=== PATIENT | female | born 1940 | race Caucasian/White ===

== ENCOUNTER 2017-10-08 17:38 | Emergency (ER) | payer MEDICARE, MEDICAID ==
[2017-10-08 18:15] VITALS: BP 152/76
[2017-10-08] MEDS ORDERED: Acetaminophen/HYDROcodone 325-5 MG Tab PO ONE (18:15)
[2017-10-08] MEDS ORDERED: Ketorolac 30 MG/ML SDV IM ONE (18:15)
--- NOTE | 2017-10-08 18:21 | EDM.PDOC ---
ED HPI GENERAL MEDICAL PROBLEM - General Chief Complaint: General Stated Complaint: LOW BACK PAIN Time Seen by Provider: 10/08/17 18:05 Source of Information: Reports: Patient, Family, Old Records, RN History Limitations: Reports: No Limitations - History of Present Illness INITIAL COMMENTS - FREE TEXT/NARRATIVE: 77 yo female [facility] resident with dementia is sent for low back pain and suspicion of a UTI. She is scheduled tomorrow to have an SI joint injection. May have had a fever yesterday. Is currently on diclofenac and acetaminophen for pain relief with insufficient benefit. Is here with her . Is unable today to get out of bed on her own due to the pain. X-ray of 09/26/17 shows mild degen changes of the SI joints. Onset: Gradual, Unknown/Unsure Duration: Week(s): Location: Reports: Back (low) Quality: Reports: Ache Severity: Moderate Improves with: Reports: Rest Worsens with: Reports: Movement Context: Reports: Other (uncertain) Associated Symptoms: Reports: Fever/Chills (? 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, NSAIDS Lower Back Pain Score (Numeric/FACES): 8 - Related Data Allergies Allergy/AdvReac Type Severity Reaction Status Date / Time No Known Allergies Allergy Verified 09/04/16 01:09 Home Meds: Home Meds Donepezil [Aricept] 10 mg PO BEDTIME 06/15/14 [History] Ipratropium [Atrovent HFA] 1 puff INH Q6H PRN 06/15/14 [History] Levothyroxine [Synthroid] 50 mcg PO ACBRK 06/15/14 [History] Memantine HCl [Namenda] 10 mg PO BID 06/15/14 [History] Aspirin [Halfprin] 81 mg PO DAILY 07/23/14 [History] Clopidogrel [Plavix] 75 mg PO DAILY 02/11/15 [History] Nitroglycerin 0.4 mg SL ASDIRECTED PRN 02/11/15 [History] atorvaSTATin [Lipitor] 40 mg PO BEDTIME 02/11/15 [History] Citalopram [Citalopram HBr] 20 mg PO DAILY 08/19/15 [History] Multivits w-Min/Ferrous Gluc [Cerovite Liquid] 9 mg PO DAILY 06/10/16 [History] ALPRAZolam [Xanax] 0.25 mg PO TID PRN 10/08/17 [History] ARIPiprazole [Abilify] 2 mg PO DAILY 10/08/17 [History] Acetaminophen [Tylenol] 650 mg PO QID PRN 10/08/17 [History] Diclofenac Sodium [Voltaren] 75 mg PO BIDMEALS 10/08/17 [History] Propranolol HCl 10 mg PO DAILY PRN 10/08/17 [History] Sulfamethoxazole/Trimethoprim [Bactrim Ds Tablet] 1 each PO Q12H #10 tablet [Rx] Past Medical History HEENT History: Reports: Impaired Vision Cardiovascular History: Reports: CAD, High Cholesterol, DC, Stents, Syncope Respiratory History: Reports: SOB Gastrointestinal History: Reports: Bowel Obstruction, Diverticulosis 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: , Other (See Below) Other OB/BYN History: breast lumpectomy Musculoskeletal History: Reports: Fracture, Fibromyalgia Neurological History: Reports: Alzheimers Disease, Seizure Other Neuro History: dementia Psychiatric History: Reports: Anxiety Other Psychiatric History: Dementia Endocrine/Metabolic History: Reports: Hypothyroidism Other Endocrine/Metabolic History: thyroid disease - Infectious Disease History Infectious Disease History: Reports: Chicken Pox, Measles, Mumps - Past Surgical History Cardiovascular Surgical History: Reports: Coronary Artery Stent, Vascular Surgery GI Surgical History: Reports: Colonoscopy, EGD, Hernia Repair/Other Musculoskeletal Surgical History: Reports: Carpal Tunnel Oncologic Surgical History: Reports: Lumpectomy Social & Family History - Tobacco Use Smoking Status *Q: Never Smoker Years of Tobacco use: 40 Packs/Tins Daily: 1 Used Tobacco, but Quit: Yes Month Tobacco Last Used: 10 years ago Second Hand Smoke Exposure: No - Caffeine Use Caffeine Use: Reports: Coffee - Alcohol Use Days Per Week of Alcohol Use: 0 - Recreational Drug Use Recreational Drug Use: No ED ROS GENERAL - Review of Systems Review Of Systems: See Below Constitutional: Reports: Fever (yesterday) HEENT: Reports: No Symptoms Respiratory: Reports: No Symptoms Cardiovascular: Reports: No Symptoms GI/Abdominal: Reports: No Symptoms : Reports: Other (malodorous urine) Musculoskeletal: Reports: Back Pain (low) Skin: Reports: No Symptoms Neurological: Reports: No Symptoms Psychiatric: Reports: No Symptoms ED EXAM, GENERAL - Physical Exam Exam: See Below Exam Limited By: No Limitations General Appearance: Alert, WD/WN, No Apparent Distress Eye Exam: Bilateral Eye: Normal Inspection Ears: Normal External Exam, Normal Canal, Hearing Grossly Normal Ear Exam: Bilateral Ear: Auricle Normal, Canal Normal Nose: Normal Inspection, Normal Mucosa, No Blood Throat/Mouth: Normal Inspection, Normal Lips, Normal Oropharynx, Normal Voice, No Airway Compromise Head: Atraumatic, Normocephalic Neck: Normal Inspection, Supple, Non-Tender Respiratory/Chest: No Respiratory Distress, Lungs Clear, Normal Breath Sounds, No Accessory Muscle Use Cardiovascular: Regular Rate, Rhythm, No Edema GI/Abdominal: Normal Bowel Sounds, Soft, Non-Tender, No Distention Back Exam: Normal Inspection, Other (sacral and L SI joint tenderness with palpation. ). No: CVA Tenderness (R), CVA Tenderness (L), Vertebral Tenderness Extremities: Normal Inspection, Non-Tender, No Pedal Edema Neurological: Alert, CN II-XII Intact, No Motor/Sensory Deficits, Memory Loss Recent Events (not new) Psychiatric: Normal Affect, Normal Mood Skin Exam: Warm, Dry, Intact, Normal Color, No Rash Lymphatic: No Adenopathy Course - Vital Signs Last Recorded V/S: Last Vital Signs Temp 36.5 C 10/08/17 17:54 Pulse 73 10/08/17 17:54 Resp 18 10/08/17 17:54 BP 152/76 H 10/08/17 17:54 Pulse Ox 91 L 10/08/17 17:54 - Orders/Labs/Meds Orders: Active Orders 24 hr Category Date Time Status CULTURE URINE [RM] Stat Lab 10/08/17 19:40 Ordered Labs: Laboratory Tests 10/08/17 Range/Units 19:24 Urine Color [place] Urine Appearance Cloudy Urine pH 5.0 (4.5-8.0) Ur Specific [place] 1.030 (1.008-1.030) Urine Protein 30 H (NEGATIVE) mg/dL Urine Glucose (UA) Normal (NEGATIVE) mg/dL Urine Ketones 15 H (NEGATIVE) mg/dL Urine Occult Blood Large (NEGATIVE) Urine Nitrite Negative (NEGATIVE) Urine Bilirubin Negative (NEGATIVE) Urine Urobilinogen 1 (NORMAL) mg/dL Ur Leukocyte Esterase Large (NEGATIVE) Urine RBC 5-10 H (0-5) Urine WBC Packed H (0-5) Ur Epithelial Cells Moderate Amorphous Sediment Moderate Urine Bacteria Moderate Urine Mucus Numerous Urine Other See note Meds: Medications Discontinued Medications Generic Name Dose Route Start Last Admin Trade Name Freq PRN Reason Stop Dose Admin Hydrocodone Bitart/Acetaminophen 1 tab 10/08/17 18:15 10/08/17 18:21 [place] [facility] 325-5 Mg PO 10/08/17 18:16 1 tab ONETIME ONE Administration Ketorolac Tromethamine 15 mg 10/08/17 18:15 10/08/17 18:21 Toradol IM 10/08/17 18:16 15 mg ONETIME ONE Administration Trimethoprim/Sulfamethoxazole 1 tab 10/08/17 19:40 Septra Ds PO 10/08/17 19:41 ONETIME ONE Departure - Departure Time of Disposition: 19:45 Disposition: Home, Self-Care 01 Condition: Fair Clinical Impression: Sacro-iliac pain UTI (urinary tract infection) Qualifiers: Urinary tract infection type: acute cystitis Hematuria presence: without hematuria Qualified Code(s): N30.00 - Acute cystitis without hematuria - Discharge Information Prescriptions: Sulfamethoxazole/Trimethoprim [Bactrim Ds Tablet] 1 each PO Q12H #10 tablet Referrals: Grant Flores MD [Primary Care Provider] - Forms: ED Department Discharge Additional Instructions: Take Bactrim DS every 12 hrs until gone. Recheck in the clinic in 2-3 days to review your culture results. Take [place] every 4 hrs for pain relief. Keep your appt for injection tomorrow. Continue your other meds as currently. - My Orders Last 24 Hours: My Active Orders 10/08/17 19:40 CULTURE URINE [RM] Stat - Assessment/Plan Last 24 Hours: My Active Orders 10/08/17 19:40 CULTURE URINE [RM] Stat
[2017-10-08] MEDS ORDERED: Sulfamethoxazole/Trimethoprim 800-160 MG Tab PO ONE (19:40)
== END 2017-10-08 20:17 | disposition home or self-care (01) ==
LOC: JP.ED 17:38
DX: M53.3 Sacrococcygeal disorders, not elsewhere classified (principal); N30.00 Acute cystitis without hematuria; E78.00 Pure hypercholesterolemia, unspecified; E03.9 Hypothyroidism, unspecified; Z79.899 Other long term (current) drug therapy; Z87.891 Personal history of nicotine dependence
CPT/HCPCS: 81001; 87086; 96372; 99284; A9270; J1885; 99283

== ENCOUNTER 2017-10-29 05:54 | Emergency (ER) | payer MEDICARE, MEDICAID ==
[2017-10-29] MEDS ORDERED: Sodium Chloride 0.9% 10 ML Syringe FLUSH PRN ×2 (06:49→07:18)
[2017-10-29] MEDS ORDERED: Ondansetron 4 MG/2 ML SDV IVPUSH ONE (06:51)
--- NOTE | 2017-10-29 06:57 | EDM.PDOC ---
<Tang Sosa - Last Filed: 10/29/17 07:11> ED HPI GENERAL MEDICAL PROBLEM - General Chief Complaint: Gastrointestinal Problem Stated Complaint: ILLNESS Time Seen by Provider: 10/29/17 06:39 Source of Information: Reports: Patient, Old Records, Significant Other, Other ( clinic records) History Limitations: Reports: Other (dementia) - History of Present Illness INITIAL COMMENTS - FREE TEXT/NARRATIVE: 06.40 Brought by her significant other after he was called because of several episodes of vomiting Complaint Vomiting, decreased intake History of present illness 77-year-old female with dementia, she is in [facility] because of dementia; her significant other spends evenings with her. She's had chronic back pain for months She's had intermittent vomiting for 3 weeks with decreased appetite decreased intake and weight loss. Last 4-5 days she has not been vomiting but then again this morning she had multiple episodes which prompted the staff to call him to bring her in. No abdominal pain Uncertain if any diarrhea, but her friend comments that she is incontinent and runs to the bathroom every 10 minutes when he was there in the evening. 3 weeks ago she had fever 102. Recently changed to ciprofloxacin, she had one dose of that so far. She has had recurrent urinary tract infections, failed to improve on Septra and urine culture from the office done on November 04 revealed Escherichia coli in the urine. No urinary symptoms but history from the patient is unreliable Complaining of thirst Significant other reports that he thinks she looks quite yellow Additional history includes coronary artery disease, myocardial infarction, coronary stents, diverticulitis with excision of small part of intestine because of obstruction, and hernia repair. Left Lower Back Pain Score (Numeric/FACES): 6 - Related Data Allergies Allergy/AdvReac Type Severity Reaction Status Date / Time No Known Allergies Allergy Verified 10/29/17 06:12 Home Meds: Home Meds Donepezil [Aricept] 10 mg PO BEDTIME 06/15/14 [History] Ipratropium [Atrovent HFA] 1 puff INH Q6H PRN 06/15/14 [History] Levothyroxine [Synthroid] 50 mcg PO ACBRK 06/15/14 [History] Memantine HCl [Namenda] 10 mg PO BID 06/15/14 [History] Aspirin [Halfprin] 81 mg PO DAILY 07/23/14 [History] Clopidogrel [Plavix] 75 mg PO DAILY 02/11/15 [History] Nitroglycerin 0.4 mg SL ASDIRECTED PRN 02/11/15 [History] atorvaSTATin [Lipitor] 40 mg PO BEDTIME 02/11/15 [History] Citalopram [Citalopram HBr] 20 mg PO DAILY 08/19/15 [History] Multivits w-Min/Ferrous Gluc [Cerovite Liquid] 9 mg PO DAILY 06/10/16 [History] ALPRAZolam [Xanax] 0.25 mg PO TID PRN 10/08/17 [History] ARIPiprazole [Abilify] 2 mg PO DAILY 10/08/17 [History] Acetaminophen [Tylenol] 650 mg PO QID PRN 10/08/17 [History] Diclofenac Sodium [Voltaren] 75 mg PO BIDMEALS 10/08/17 [History] Propranolol HCl 10 mg PO DAILY PRN 10/08/17 [History] Sulfamethoxazole/Trimethoprim [Bactrim Ds Tablet] 1 each PO Q12H #10 tablet [Rx] Past Medical History HEENT History: Reports: Impaired Vision Cardiovascular History: Reports: CAD, High Cholesterol, SD, Stents, Syncope Respiratory History: Reports: SOB Gastrointestinal History: Reports: Bowel Obstruction, Diverticulosis Genitourinary History: Reports: UTI, Recurrent 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: , 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 (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 Below) Other OB/BYN History: breast lumpectomy Musculoskeletal History: Reports: Fracture, Fibromyalgia Neurological History: Reports: Alzheimers Disease, Seizure Other Neuro History: dementia Psychiatric History: Reports: Anxiety Other Psychiatric History: Dementia Endocrine/Metabolic History: Reports: Hypothyroidism Other Endocrine/Metabolic History: thyroid disease - Infectious Disease History Infectious Disease History: Reports: Chicken Pox, Measles, Mumps - Past Surgical History Cardiovascular Surgical History: Reports: Coronary Artery Stent, Vascular Surgery GI Surgical History: Reports: Colonoscopy, EGD, Hernia Repair/Other Musculoskeletal Surgical History: Reports: Carpal Tunnel Oncologic Surgical History: Reports: Lumpectomy Social & Family History - Tobacco Use Smoking Status *Q: Former Smoker Years of Tobacco use: 40 Packs/Tins Daily: 1 Used Tobacco, but Quit: Yes Month Tobacco Last Used: 8 years Second Hand Smoke Exposure: No - Caffeine Use Caffeine Use: Reports: None - Alcohol Use Days Per Week of Alcohol Use: 0 - Recreational Drug Use Recreational Drug Use: No ED ROS GENERAL - Review of Systems Review Of Systems: Unable To Obtain (Dementia) ED EXAM, GI/ABD - Physical Exam Exam: See Below Exam Limited By: No Limitations General Appearance: Alert, Anxious, Mild Distress, Other (Anxious, disheveled, Vital signs are normal, distracted) Eyes: Bilateral: Normal Appearance Ears: Normal External Exam, Normal Canal Nose: Normal Inspection Throat/Mouth: Normal Oropharynx, Normal Voice, Other (Dry mouth and tongue) Head: Atraumatic Neck: Supple, Non-Tender. No: Lymphadenopathy (R), Lymphadenopathy (L) Respiratory/Chest: No Respiratory Distress, Lungs Clear, Normal Breath Sounds, No Accessory Muscle Use Cardiovascular: Normal Peripheral Pulses, Regular Rate, Rhythm, No Murmur GI/Abdominal Exam: Normal Bowel Sounds, Soft, Non-Tender, Other (Overweight, difficult to assess but no focal tenderness and no masses felt, scars from previous surgery) Neurological: Alert, CN II-XII Intact, Confused, Disoriented Skin Exam: Warm, Dry, No Rash, Pallor Comments: 77-year-old female with significant weight loss, due to a combination of decreased appetite decreased intake vomiting possible diarrhea. Labs ordered IV fluids, transferred to care of Officer pending results and disposition. Ondansetron 4 mg IV Course - Vital Signs Last Recorded V/S: Last Vital Signs Temp 98.6 F 10/29/17 05:59 Pulse 73 10/29/17 07:08 Resp 16 10/29/17 07:08 BP 134/57 L 10/29/17 07:08 Pulse Ox 92 L 10/29/17 07:08 - Orders/Labs/Meds Orders: Active Orders 24 hr Category Date Time Status Peripheral IV Care [RC] . DIRECTED Care 10/29/17 06:51 Active Peripheral IV Care [RC] . DIRECTED Care 10/29/17 07:18 Active INR,PT,PROTHROMBIN TIME [COAG] Urgent Lab 10/29/17 07:58 Ordered PTT,PARTIAL THROMBOPLSTIN TIME [COAG] Urgent Lab 10/29/17 07:58 Ordered RED BLOOD CELLS LP [BBK] Stat Lab 10/29/17 07:58 Ordered TYPE AND SCREEN [BBK] Stat Lab 10/29/17 07:58 Ordered Octreotide [SandoSTATIN] 1,000 mcg Med 10/29/17 08:45 Active Sodium Chloride 0.9% [Normal Saline] 245 ml IV Q20H Octreotide [SandoSTATIN] 50 mcg Med 10/29/17 08:30 Active Sodium Chloride 0.9% [Normal Saline] 50 ml IV ONETIME Pantoprazole 80 MG in Sodium Chloride 0.9% @ 10 MLS/HR( Med 10/29/17 08:15 Ordered 100ml) Sodium Chloride 0.9% [Normal Saline] 100 ml Pantoprazole [ProTONIX IV] 80 mg IV 10 mls/hr Pantoprazole [ProTONIX IV] Med 10/29/17 08:15 Ordered 80 mg IVPUSH .BOLUS Sodium Chloride 0.9% [Normal Saline] 1,000 ml Med 10/29/17 07:00 Active IV ASDIRECTED Sodium Chloride 0.9% [Saline Flush] Med 10/29/17 06:49 Active 10 ml FLUSH ASDIRECTED PRN Sodium Chloride 0.9% [Saline Flush] Med 10/29/17 07:18 Active 10 ml FLUSH ASDIRECTED PRN Peripheral IV Insertion Adult [OM.PC] Routine Oth 10/29/17 06:48 Ordered Peripheral IV Insertion Adult [OM.PC] Routine Oth 10/29/17 07:18 Ordered Medication Orders Sodium Chloride (Normal Saline) 1,000 mls @ 250 mls/hr IV ASDIRECTED ALBERTO Last Admin: 10/29/17 07:05 Dose: 250 mls/hr Octreotide Acetate 50 mcg/ (Sodium Chloride) 50.25 mls @ 201 mls/hr IV ONETIME ONE Stop: 10/29/17 08:44 Octreotide Acetate 1,000 mcg/ (Sodium Chloride) 250 mls @ 12.5 mls/hr IV Q20H ALBERTO Pantoprazole Sodium 80 mg/ (Sodium Chloride) 100 mls @ 10 mls/hr IV .Q10H ALBERTO Pantoprazole Sodium (Protonix Iv) 80 mg IVPUSH .BOLUS ALBERTO Sodium Chloride (Saline Flush) 10 ml FLUSH ASDIRECTED PRN PRN Reason: Keep Vein Open Last Admin: 10/29/17 07:05 Dose: 10 ml Sodium Chloride (Saline Flush) 10 ml FLUSH ASDIRECTED PRN PRN Reason: Keep Vein Open Labs: Laboratory Tests 10/29/17 10/29/17 10/29/17 Range/Units 07:00 07:00 07:00 WBC 11.5 H (4.5-11.0) K/uL RBC 2.33 L (3.30-5.50) M/uL Hgb 6.5 L* D (12.0-15.0) g/dL Hct 22.4 L (36.0-48.0) % MCV 96 (80-98) fL MCH 28 (27-31) pg MCHC 29 L (32-36) % Plt Count 455 H (150-400) K/uL Sodium 142 (140-148) mmol/L Potassium 4.4 (3.6-5.2) mmol/L Chloride 106 (100-108) mmol/L Carbon Dioxide 28 (21-32) mmol/L Anion Gap 7.6 (5.0-14.0) mmol/L BUN 34 H D (7-18) mg/dL Creatinine 0.8 (0.6-1.0) mg/dL Est Cr Clr Drug Dosing 56.88 mL/min Estimated GFR (MDRD) > 60 (>60) Glucose 131 H (74-106) mg/dL Lactic Acid 1.4 (0.4-2.0) mmol/L Calcium 9.2 (8.5-10.1) mg/dL Total Bilirubin 0.5 (0.2-1.0) mg/dL AST 20 (15-37) U/L ALT 29 (12-78) U/L Alkaline Phosphatase 137 H (46-116) U/L Total Protein 6.8 (6.4-8.2) g/dL Albumin 2.7 L (3.4-5.0) g/dL Globulin 4.1 H (2.3-3.5) g/dL Albumin/Globulin Ratio 0.7 L (1.2-2.2) Lipase 152 (73-393) U/L Meds: Medications Generic Name Dose Route Start Last Admin Trade Name Freq PRN Reason Stop Dose Admin Sodium Chloride 1,000 mls @ 250 mls/hr 10/29/17 07:00 10/29/17 07:05 Normal Saline IV 250 mls/hr ASDIRECTED ALBERTO Administration Octreotide Acetate 50 mcg/ 50.25 mls @ 201 mls/hr 10/29/17 08:30 Sodium Chloride IV 10/29/17 08:44 ONETIME ONE Octreotide Acetate 1,000 mcg/ 250 mls @ 12.5 mls/hr 10/29/17 08:45 Sodium Chloride IV Q20H ALBERTO Pantoprazole Sodium 80 mg/ 100 mls @ 10 mls/hr 10/29/17 08:15 Sodium Chloride IV .Q10H ALBERTO Pantoprazole Sodium 80 mg 10/29/17 08:15 Protonix Iv IVPUSH .BOLUS ALBERTO Sodium Chloride 10 ml 10/29/17 06:49 10/29/17 07:05 Saline Flush FLUSH 10 ml ASDIRECTED PRN Administration Keep Vein Open Sodium Chloride 10 ml 10/29/17 07:18 Saline Flush FLUSH ASDIRECTED PRN Keep Vein Open Discontinued Medications Generic Name Dose Route Start Last Admin Trade Name Freq PRN Reason Stop Dose Admin Ondansetron HCl 4 mg 10/29/17 06:51 10/29/17 07:07 Zofran IVPUSH 10/29/17 06:52 4 mg ONETIME ONE Administration Pantoprazole Sodium 40 mg 10/29/17 07:58 Protonix Iv IVPUSH 10/29/17 07:59 ONETIME ONE Prochlorperazine Edisylate 5 mg 10/29/17 08:10 Compazine IVPUSH 10/29/17 08:11 ONETIME ONE Departure - Departure Disposition: Admitted As Inpatient 68 Clinical Impression: Upper GI bleed - Discharge Information Referrals: Grant Flores MD [Primary Care Provider] - Forms: ED Department Discharge - My Orders Last 24 Hours: My Active Orders 10/29/17 07:18 Peripheral IV Care [RC] . DIRECTED Sodium Chloride 0.9% [Saline Flush] 10 ml FLUSH ASDIRECTED PRN Peripheral IV Insertion Adult [OM.PC] Routine 10/29/17 07:58 INR,PT,PROTHROMBIN TIME [COAG] Urgent PTT,PARTIAL THROMBOPLSTIN TIME [COAG] Urgent RED BLOOD CELLS LP [BBK] Stat TYPE AND SCREEN [BBK] Stat 10/29/17 08:15 Pantoprazole 80 MG in Sodium Chloride 0.9% @ 10 MLS/HR(100ml) Sodium Chloride 0.9% [Normal Saline] 100 ml Pantoprazole [ProTONIX IV] 80 mg IV 10 mls/hr Pantoprazole [ProTONIX IV] 80 mg IVPUSH .BOLUS 10/29/17 08:30 Octreotide [SandoSTATIN] 50 mcg Sodium Chloride 0.9% [Normal Saline] 50 ml IV ONETIME 10/29/17 08:45 Octreotide [SandoSTATIN] 1,000 mcg Sodium Chloride 0.9% [Normal Saline] 245 ml IV Q20H - Assessment/Plan Last 24 Hours: My Active Orders 10/29/17 07:18 Peripheral IV Care [RC] . DIRECTED Sodium Chloride 0.9% [Saline Flush] 10 ml FLUSH ASDIRECTED PRN Peripheral IV Insertion Adult [OM.PC] Routine 10/29/17 07:58 INR,PT,PROTHROMBIN TIME [COAG] Urgent PTT,PARTIAL THROMBOPLSTIN TIME [COAG] Urgent RED BLOOD CELLS LP [BBK] Stat TYPE AND SCREEN [BBK] Stat 10/29/17 08:15 Pantoprazole 80 MG in Sodium Chloride 0.9% @ 10 MLS/HR(100ml) Sodium Chloride 0.9% [Normal Saline] 100 ml Pantoprazole [ProTONIX IV] 80 mg IV 10 mls/hr Pantoprazole [ProTONIX IV] 80 mg IVPUSH .BOLUS 10/29/17 08:30 Octreotide [SandoSTATIN] 50 mcg Sodium Chloride 0.9% [Normal Saline] 50 ml IV ONETIME 10/29/17 08:45 Octreotide [SandoSTATIN] 1,000 mcg Sodium Chloride 0.9% [Normal Saline] 245 ml IV Q20H <OfficerArturo - Last Filed: 10/29/17 08:15> Course - Re-Assessments/Exams Free Text/Narrative Re-Assessment/Exam: 10/29/17 08:14 Took over care from Dr. Sosa at 7 AM Departure - Departure Time of Disposition: 08:14 Condition: Fair - Assessment/Plan Plan: Assessment Acuity = acute Site and laterality = upper GI bleed complicated patient with known history of dementia, recent urinary tract infection Etiology = unclear etiology Manifestations = weakness, emesis Location of injury = Home Lab values = WBC slightly elevated 11.5 consistent leukocytosis hemoglobin significantly low 6.5 consistent with a normochromic anemia hemoglobin on October 11 was 12.8 lactic acid normal at 1.4 albumin low at 2.7 consistent hypoalbuminemia, gastric occult was positive Plan Discuss case with hospitalist environmental field professional he agreed to come and evaluate the patient emergency department for admission, octreotide drip has been initiated Protonix drip and bolus also initiated blood has been ordered Patient was in agreement with the plan all questions were answered, This note was dictated using [employer] voice recognition software please call with any questions.
[2017-10-29] MEDS ORDERED: Sodium Chloride 0.9% 1,000 ML IV SCH (07:00)
[2017-10-29] MEDS ORDERED: Pantoprazole 40 MG Vial IVPUSH ONE (07:58)
[2017-10-29] MEDS ORDERED: Pantoprazole 40 MG Vial ONE (08:10)
[2017-10-29] MEDS ORDERED: Prochlorperazine 10 MG/2 ML SDV IVPUSH ONE (08:10)
[2017-10-29] MEDS ORDERED: Sodium Chloride 0.9% 100 ML with Pantoprazole 80 MG IV SCH ×4 (08:15→09:15)
[2017-10-29] MEDS ORDERED: Pantoprazole 40 MG Vial IVPUSH SCH (08:15)
[2017-10-29] MEDS ORDERED: OCTREOTIDE IV SCH (08:45)
[2017-10-29] MEDS ORDERED: SODIUM CHLORIDE 0.9% IV SCH (08:45)
[2017-10-29 08:50] VITALS: BP 125/59
== END 2017-10-29 10:27 | disposition critical access hospital (66) ==
LOC: JP.ED 05:54
DX: K92.2 Gastrointestinal hemorrhage, unspecified (principal); I25.10 Atherosclerotic heart disease of native coronary artery without angina pectoris; E78.00 Pure hypercholesterolemia, unspecified; G30.9 Alzheimer's disease, unspecified; F02.80 Dementia in other diseases classified elsewhere, unspecified severity, without behavioral disturbance, psychotic disturbance, mood disturbance, and anxiety; E03.9 Hypothyroidism, unspecified; Z87.891 Personal history of nicotine dependence; Z79.82 Long term (current) use of aspirin; Z79.02 Long term (current) use of antithrombotics/antiplatelets; Z79.899 Other long term (current) drug therapy; Z95.5 Presence of coronary angioplasty implant and graft
CPT/HCPCS: 36415; 80053; 82271; 83605; 83690; 85027; 85610; 85730; 86850; 86900; 86901; 96361; 96365; 96367; 96375; 96376; 99284; C9113; J0780; J2354; J2405; J7030; J7040; J7050; 99285

== ENCOUNTER 2018-01-20 07:30 | Day surgery (SDC) | payer MEDICARE, MEDICAID ==
[~2018-01-20 07:30] MED LIST: Bupivacaine 0.5% 50 ML MDV ONE; Lidocaine 1% with EPINEPHrine 1:100,000 50 ML MDV ONE
[2018-01-20] MEDS ORDERED: Propofol 200 MG/20 ML SDV ONE (08:09)
[2018-01-20] MEDS ORDERED: fentaNYL 100 MCG/2 ML SDV ONE (08:09)
[2018-01-20] MEDS ORDERED: Midazolam 1 MG/ML 2 ML SDV ONE (08:09)
[2018-01-20] MEDS ORDERED: Dextrose 5%-Lactated Ringers 1,000 ML IV SCH (08:30)
--- NOTE | 2018-01-20 12:10 | US ---
ULTRASOUND-GUIDED WIRE LOCALIZATION LEFT BREAST: History: Left breast lesion 6:00 Technique: Following informed consent. The inferior left breast was scanned. The heterogeneous lesion described on ultrasound was localized. Skin was marked. The skin was then prepped. The area was drap ed and local anesthesia was applied to the skin and subcutaneous tissue to the margin of the lesion a s well as superficial and deep. A Kopan needle was then passed into the lesion and advanced under ult rasound guidance. The Kopan wire was then passed out of the needle and deployed. The needle was remov ed with wire remaining in place. Patient tolerated the procedure well. She was sent for post procedure two-view mammogram. Impression: Ultrasound-guided wire placement in a left breast lesion at 6:00
--- NOTE | 2018-01-20 12:22 | MY ---
Postsurgical M SPECIMEN RADIOGRAPH left breast Findings: Single view of the left breast surgical specimen was obtained. It contains the Kopan wire a nd the irregular lesion described on prior mammogram. Conclusion: Specimen contains the described lesion and the localization wire
--- NOTE | 2018-01-20 12:24 | MY ---
EXAM: (Postprocedure mammogram) INDICATION: Localization wire placement COMPARISON: Prior studies. FINDINGS: CC and ML views of the left breast were obtained following ultrasound guided placement of a localization wire from the lateral approach. The localization wire tip is contiguous to the describe d lesion IMPRESSION: Localization wire is contiguous to the 6:00 lesion in the left breast
[2018-01-20 13:03] VITALS: BP 155/72
--- NOTE | 2018-01-22 08:16 | OR ---
DATE OF PROCEDURE: 01/20/2018 PREOPERATIVE DIAGNOSIS: Radiologically suspicious lesion, left breast. POSTOPERATIVE DIAGNOSIS: Radiologically suspicious lesion, left breast. PROCEDURE: Excisional biopsy, left breast with preoperative ultrasound-guided needle localization (75751). ANESTHESIA: Local plus IV sedation. POLICE RADIO DISPATCHER: Syl Zelaya MS-3. INDICATIONS FOR PROCEDURE: This is a 77-year-old presenting with a radiologically suspicious lesion in the inferior aspect of the left breast. 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 Potential risks including bleeding, infection, cosmetic deformity, possible need for additional treatment, should the lesion be found to be malignant, were all reviewed, and the patient wishes to proceed. DETAILS OF PROCEDURE: The patient was taken to the operating room. After successful localization of the area of concern in the left breast, left breast and surrounding areas were then prepped and draped while the patient received IV sedation. The optimal point of incision was then identified fluoroscopically. That area was then anesthetized, skin and deeper levels, with some 1% lidocaine mixed with Marcaine. A transversely oriented incision was then made, and the tissue around the end of the needle was then excised using sharp dissection. That specimen was then delivered from the field. It contained a fine nodularity within it, and specimen mammogram confirmed adequate removal of the area of concern. The deeper soft tissues had some bleeding, corrected with electrocautery. Incision was then closed with 3-0 and 4-0 Vicryl stitch deep and a 5-0 Vicryl subcuticular stitch. Dressing was applied. The patient was taken to the recovery room in satisfactory condition. Hector George MD /[id number]
== END 2018-01-20 12:30 | disposition home or self-care (01) ==
LOC: JP.SDS 07:30
PROVIDERS: ATTEND Surgery
DX: D05.02 Lobular carcinoma in situ of left breast (principal); I25.10 Atherosclerotic heart disease of native coronary artery without angina pectoris; G30.9 Alzheimer's disease, unspecified; F02.80 Dementia in other diseases classified elsewhere, unspecified severity, without behavioral disturbance, psychotic disturbance, mood disturbance, and anxiety; E03.9 Hypothyroidism, unspecified; K21.9 Gastro-esophageal reflux disease without esophagitis; Z95.5 Presence of coronary angioplasty implant and graft
CPT/HCPCS: 76098; 76098-26; 76942-26; 76942-LT; 77065-26-LT; 77065-LT; 88305; 88341; 88342; 88360; J2250; J2704; J3010; J7042

== ENCOUNTER 2018-02-06 09:10 | Inpatient (IN) | payer MEDICARE, MEDICAID ==
[2018-02-06] MEDS ORDERED: Acetaminophen 500 MG Tab PO ONE (09:45)
[2018-02-06] MEDS ORDERED: ceFAZolin 1 GM in Premix Bag 1 BAG IV ONE (10:30)
[2018-02-06] MEDS ORDERED: Isosulfan Blue 5 ML SDV ONE (10:32)
[2018-02-06] MEDS: Dextrose 5%-Lactated Ringers 1,000 ML IV SCH ×2 (10:52→16:01)
[2018-02-06] MEDS ORDERED: fentaNYL 250 MCG/5 ML SDV ONE (11:43)
[2018-02-06] MEDS ORDERED: Propofol 200 MG/20 ML SDV ONE (11:43)
[2018-02-06] MEDS ORDERED: Ondansetron 4 MG/2 ML SDV IVPUSH PRN (14:47)
[2018-02-06] MEDS ORDERED: Nitroglycerin 0.4 MG Tab.SL SL PRN (14:50)
[2018-02-06] MEDS: Acetaminophen 325 MG Tab PO SCH ×2 (15:12→21:09)
[2018-02-06] MEDS ORDERED: Naloxone 0.4 MG/ML SDV IV PRN (15:44)
[2018-02-06] MEDS ORDERED: HYDROmorphone/Normal Saline 15 MG/30 ML PCA IV PRN (15:44)
[2018-02-06] MEDS: ceFAZolin 1 GM in Premix Bag 1 BAG IV SCH (18:07)
[2018-02-06] MEDS: Memantine 10 MG Tab PO SCH (21:09)
[2018-02-06] MEDS: DONEPEZIL 23 MG PO SCH (21:12)
[2018-02-06] MEDS ORDERED: LORazepam 2 MG/ML SDV IVPUSH PRN (23:07)
[2018-02-07] MEDS: Dextrose 5%-Lactated Ringers 1,000 ML IV SCH ×2 (02:06→13:18)
[2018-02-07] MEDS: ceFAZolin 1 GM in Premix Bag 1 BAG IV SCH ×2 (02:07→09:19)
[2018-02-07] MEDS: Acetaminophen 325 MG Tab PO SCH ×4 (03:12→21:09)
--- NOTE | 2018-02-07 08:38 | PN ---
DATE OF SERVICE: 02/07/2018 SUBJECTIVE: Daljit is postop day #1. Her pain has been controlled. She has been up ambulating. Vital signs are stable. ANITA drains have put out 45 and 30 mL respectively. REVIEW OF SYSTEMS: Remainder of review of systems is negative for any pertinent positives and negatives. OBJECTIVE: GENERAL: Daljit is a 77-year-old female with dementia. VITAL SIGNS: TPR is 98, 167, 14, blood pressure 109/62. HEENT: Negative. NECK: Supple. HEART: Regular rate and rhythm. LUNGS: Clear. Dressing is dry and intact. ANITA drains as stated above. ASSESSMENT: Left modified radical mastectomy for carcinoma of left breast and injection procedure for identifying sentinel lymph nodes, 02/06/2018. Surgeon Hector Goerge M.D. PLAN: 1. Regular diet. 2. Saline lock IV if oral intake adequate. 3. DC PHARMACY COORDINATOR. 4. ANITA drain training to family, to strip empty and record ANITA drains 4 times a day as and when half full. 5. Dilaudid 2 mg q.4 hours p.r.n. pain. 6. We will evaluate p.r.n. or in a.m. Amy Bates PA-C /[id number]
[2018-02-07] MEDS: Levothyroxine 75 MCG Tab PO SCH (08:50)
[2018-02-07] MEDS: Pantoprazole 40 MG Tab.CR PO SCH (08:50)
[2018-02-07] MEDS: Citalopram 20 MG Tab PO SCH (09:12)
[2018-02-07] MEDS: Memantine 10 MG Tab PO SCH ×2 (09:12→21:09)
[2018-02-07] MEDS: HYDROmorphone 2 MG Tab PO PRN ×2 (11:44→18:19)
[2018-02-07] MEDS: DONEPEZIL 23 MG PO SCH (21:11)
[2018-02-08] MEDS: Acetaminophen 325 MG Tab PO SCH ×4 (04:16→21:32)
[2018-02-08] MEDS: Levothyroxine 75 MCG Tab PO SCH (07:39)
[2018-02-08] MEDS: Pantoprazole 40 MG Tab.CR PO SCH (07:39)
[2018-02-08] MEDS ORDERED: Sodium Chloride 0.9% 10 ML Syringe IV PRN (08:54)
[2018-02-08] MEDS: Memantine 10 MG Tab PO SCH ×2 (09:17→21:33)
[2018-02-08] MEDS: Citalopram 20 MG Tab PO SCH (09:18)
[2018-02-08] MEDS: HYDROmorphone 2 MG Tab PO PRN ×2 (13:31→21:31)
[2018-02-08] MEDS: diphenhydrAMINE 25 MG Cap PO PRN (20:00)
[2018-02-08] MEDS: Donepezil 10 MG Tab PO SCH (21:33)
--- NOTE | 2018-02-08 21:33 | PN ---
DATE OF SERVICE: 02/08/2018 The patient has been afebrile with stable vital signs. Oral intake is moderate but I think it should hand picker today and we will saline lock her IV, take off the operative dressing, she may be ready for transfer to the senior care tomorrow. Hector George MD /[id number]
[2018-02-09] MEDS: diphenhydrAMINE 25 MG Cap PO PRN ×2 (02:19→13:50)
[2018-02-09] MEDS: Acetaminophen 325 MG Tab PO SCH ×4 (04:46→22:43)
[2018-02-09] MEDS: Pantoprazole 40 MG Tab.CR PO SCH (07:14)
[2018-02-09] MEDS: Levothyroxine 75 MCG Tab PO SCH (07:15)
[2018-02-09] MEDS: Memantine 10 MG Tab PO SCH ×2 (08:22→22:43)
[2018-02-09] MEDS: Citalopram 20 MG Tab PO SCH (08:22)
[2018-02-09] MEDS: HYDROmorphone 2 MG Tab PO PRN ×2 (09:54→17:52)
[2018-02-09] MEDS ORDERED: Magnesium Hydroxide 400 MG/5 ML Susp 30 ML Cup PO ONE (13:00)
[2018-02-09] MEDS ORDERED: Bisacodyl 10 MG Supp RECTAL ONE (22:29)
[2018-02-09] MEDS: Donepezil 10 MG Tab PO SCH (22:42)
[2018-02-09] MEDS: Bisacodyl 5 MG Tab PO SCH (22:42)
[2018-02-10] MEDS: diphenhydrAMINE 25 MG Cap PO PRN (00:37)
[2018-02-10] MEDS: Acetaminophen 325 MG Tab PO SCH ×2 (04:31→10:04)
[2018-02-10 07:11] VITALS: BP 150/65
--- NOTE | 2018-02-10 08:15 | DISCH ---
ADMISSION DIAGNOSES: 1. Left breast cancer. 2. Alzheimer dementia. 3. Asthma, unspecified. 4. Chronic obstructive pulmonary disease. 5. Coronary artery disease. 6. Diverticulosis of colon. 7. Fibromyalgia. 8. Hypothyroidism. 9. Hyperlipidemia. 10.Recurrent herpes simplex virus. 11.Rosacea. DISCHARGE DIAGNOSES: Left modified radical mastectomy for carcinoma of the left breast and injection procedure for identifying sentinel lymph nodes. Date of surgery, 02/06/2018. Surgeon, Hector George MD. HISTORY: Daljit Mclean is a 77-year-old female with carcinoma of left breast. After preoperative evaluation and discussion of possible risks and possible complications, she wished to proceed with the surgical procedure. HOSPITAL COURSE: Daljit had her surgery on 02/06/2018. She had no operative complications. On postop day #1, her activity was good, pain was well managed, and IV was saline locked. On postop day #2, she remained to be afebrile. Vital signs were stable. Pain was well managed. Oral intake was [id number]. On 02/08/2018, she continued to progress well. Vital signs were stable. She had not had a bowel movement, was given a suppository, and had 3 bowel movements. On postop day #4, she was able to be discharged to [facility]. PHYSICAL EXAMINATION: GENERAL: Daljit Mclean is a 77-year-old female. VITAL SIGNS: Height is 5 feet 1.81 inches. Weight is 165 pounds. TPR is 97.3, 59, 18, and blood pressure 150/65. HEENT: Negative. NECK: Supple. HEART: Regular rate and rhythm. LUNGS: Clear. BREASTS: Left breast missy intact. Incisions healing well. There is no hematoma. ANITA drains have been draining 40 and 25 of a light pink serosanguineous drainage. ABDOMEN: Negative. EXTREMITIES: Without peripheral edema. DISPOSITION: Discharged to long-term facility, [facility], [place], [place]. FOLLOWUP APPOINTMENT: With Amy Bates PA-C, on 02/17/2018, at 10 a.m. DISCHARGE MEDICATIONS: Home Medications: 1. Tylenol 650 mg oral q.6 hours p.r.n. pain. 2. Abilify 2 mg oral daily. 3. Aspirin 81 mg daily. 4. Citalopram 40 mg oral daily. 5. Aricept 23 mg at bedtime. 6. Levothyroxine 75 mcg oral before breakfast. 7. Namenda 10 mg oral twice daily. 8. Nitroglycerin 0.4 sublingual as needed for chest pain. 9. Zofran 4 mg every 12 hours p.r.n. nausea. 10.Pantoprazole 40 mg oral daily. 11.Lipitor 40 mg at bedtime. DISCHARGE DIET: Usual diet as tolerated. Drink 8 to 10 glasses of water a day. ACTIVITY: No lifting over 10 pounds for 6 weeks. Other activity, walk 6 times daily. May shower. DISCHARGE INSTRUCTIONS: Notify provider if any fever, increased pain, swelling, redness, or drainage. Keep site clean and dry. Wound incision care; strip, empty, measure, and record ANITA drains 4 times a day and record the amount of drainage, and bring results of drainage to clinic appointments. Special instruction; use incentive spirometer 10 times every hour while awake.
[2018-02-10] MEDS: Bisacodyl 5 MG Tab PO SCH (08:27)
[2018-02-10] MEDS: Memantine 10 MG Tab PO SCH (08:32)
[2018-02-10] MEDS: Levothyroxine 75 MCG Tab PO SCH (08:32)
[2018-02-10] MEDS: Citalopram 20 MG Tab PO SCH (08:32)
[2018-02-10] MEDS: Pantoprazole 40 MG Tab.CR PO SCH (08:32)
--- NOTE | 2018-02-10 12:03 | PN ---
DATE OF SERVICE: 02/09/2018 The patient has been afebrile with stable vital signs. No major problems noted. The patient is still [facility]. Otherwise, continue to maximize her activity, work with pulmonary toilet, and manage her mastectomy drain tubes. Hector George MD /[id number]
--- NOTE | 2018-02-10 13:27 | OR ---
DATE OF PROCEDURE: 02/06/2018 PREOPERATIVE DIAGNOSIS: Carcinoma of left breast. POSTOPERATIVE DIAGNOSIS: Carcinoma of left breast. OPERATIVE PROCEDURES: 1. Left modified radical mastectomy (94298). 2. Injection procedure for identification of sentinel lymph nodes ([id number]). ANESTHESIA: General. SECURITY PUBLIC SAFETY OFFICER: Amy Bates PA-C. INDICATIONS FOR PROCEDURE: This is a 77-year-old presenting with a 1.1-cm infiltrating lobular carcinoma without evidence of regional or distant metastatic disease. The patient does have some advancing Alzheimer-related dementia, but after evaluation of the treatment options with the patient's significant other, the plan is to proceed with a modified radical mastectomy with sentinel lymph node biopsy with frozen section and more complete axillary dissection if metastatic disease is identified in the nodes. Potential risks of the procedure were reviewed with the patient's significant other and they wished to proceed. DETAILS OF PROCEDURE: The patient was taken to the operating room and after general endotracheal anesthesia was induced, 4 mL of isosulfan blue dye was placed adjacent to the biopsy site, the nipple areolar area, and subdermal area. The left breast, axilla, and surrounding areas were prepped and draped. An elliptical incision was then made incorporating the biopsy site and nipple-areolar complex, and carried down through the skin and subcutaneous tissue. Subcutaneous flaps were then raised superiorly, inferiorly, laterally, and medially to the usual extent down to the pectoralis major fascia. At this point, attention was taken to dissection of the axillary area. The stained lymphatics were easily traced down under the axilla and a grouping of 3 or 4 lymph nodes, which contained some dye within them were excised and sent for frozen section. None of these nodes were enlarged, and there was no other axillary adenopathy. Of note, frozen section of these was consistent with no metastatic disease, although there was some histiocytosis making that call less than 100% per the radiologist. At this point, the breast was then reflected off the chest wall in continuity with pectoralis major fascia. Two Bro-Sanders drains were then placed through stab wounds inferior to the main incision and draped across the bed of the dissection. Incisions were then closed with some 3-0 Vicryl stitch deep and then missy for the skin. The drains were affixed with some 2-0 nylon stitch. The patient was taken to the recovery room in a satisfactory condition. There were no evident complications. Physician medical office assistant instructor, Amy Bates, played an essential role in assisting in this case, helping to position the patient, retract structures as needed, as well as suturing and cutting sutures when indicated, as well as applying missy. Her presence improved patient safety and decreased the operative time. Hector George MD /[id number]
== END 2018-02-10 10:40 | DRG 581 ==
LOC: JP.SDSSCHI 09:10 → JP.SDS 09:10 → EDSTATUS 11:00 → JP.MS 13:30
PROVIDERS: ADMIT Surgery; ATTEND Surgery
PROC: 0HTU0ZZ Resection of Left Breast, Open Approach (ICD-10-PCS; principal; 2018-02-06)
PROC: 07B60ZX Excision of Left Axillary Lymphatic, Open Approach, Diagnostic (ICD-10-PCS; 2018-02-06)
DX: C50.912 Malignant neoplasm of unspecified site of left female breast (principal); G30.9 Alzheimer's disease, unspecified; F02.80 Dementia in other diseases classified elsewhere, unspecified severity, without behavioral disturbance, psychotic disturbance, mood disturbance, and anxiety; E03.9 Hypothyroidism, unspecified; E78.5 Hyperlipidemia, unspecified; I25.10 Atherosclerotic heart disease of native coronary artery without angina pectoris; M79.7 Fibromyalgia; J44.9 Chronic obstructive pulmonary disease, unspecified
CPT/HCPCS: 36415; 80053; 81001; 83735; 84100; 85027; 86300; 88307; 88331; 88332; 88341; 88342; 94762; A9270-GY; J0690; J1170; J2060; J2405; J2704; J3010; J7042; Q9968

== ENCOUNTER 2018-12-07 20:23 | Emergency (ER) | payer MEDICARE, MEDICAID ==
[2018-12-07 21:21] VITALS: BP 152/64
--- NOTE | 2018-12-07 21:55 | EDM.PDOC ---
ED HPI GENERAL MEDICAL PROBLEM - General Chief Complaint: Gastrointestinal Problem Stated Complaint: ILLNESS Time Seen by Provider: 12/07/18 21:51 Source of Information: Reports: Patient History Limitations: Reports: No Limitations - History of Present Illness INITIAL COMMENTS - FREE TEXT/NARRATIVE: Pt arrived with abdomanal pain. She had gone out to eat with her friend and she started having pain. She felt like she was having labor pains. She did not vomit. After arrival here she began to have some pain in her chest. Onset: Today, Other ( while she was out to eat) Duration: Hour(s): Location: Reports: Abdomen Associated Symptoms: Reports: No Other Symptoms - Related Data Allergies Allergy/AdvReac Type Severity Reaction Status Date / Time No Known Allergies Allergy Verified 12/07/18 21:18 Home Meds: Home Meds Donepezil [Aricept] 23 mg PO DAILY 06/15/14 [History] Levothyroxine [Synthroid] 75 mcg PO ACBRK 06/15/14 [History] Memantine HCl [Namenda] 10 mg PO BID 06/15/14 [History] Aspirin [Halfprin] 81 mg PO DAILY 07/23/14 [History] Nitroglycerin 0.4 mg SL ASDIRECTED PRN 02/11/15 [History] atorvaSTATin [Lipitor] 40 mg PO BEDTIME 02/11/15 [History] Citalopram [Citalopram HBr] 40 mg PO DAILY 08/19/15 [History] ARIPiprazole [Abilify] 2 mg PO DAILY 10/08/17 [History] Exemestane [Aromasin] 25 mg PO DAILY 09/26/18 [History] Furosemide [Lasix] 40 mg PO DAILY 09/26/18 [History] Multivits,Th w-Fe,Other Min [Therems-M] 1 tab PO DAILY 09/26/18 [History] Acetaminophen [Tylenol] 650 mg PO Q4H PRN 12/07/18 [History] Amitriptyline [Elavil] 1 tab PO BEDTIME 12/07/18 [History] Past Medical History HEENT History: Reports: Cataract, Impaired Vision Cardiovascular History: Reports: CAD, High Cholesterol, LA, Stents, Syncope Respiratory History: Reports: Bronchitis, Recurrent, COPD, SOB Gastrointestinal History: Reports: Bowel Obstruction, Diverticulosis, Gastritis , GI Bleed, PUD Genitourinary History: Reports: UTI, Recurrent ENERGY SALES BROKER History: Reports: , Other (See Below) Other ENERGY SALES BROKER History: breast lumpectomy Musculoskeletal History: Reports: Back Pain, Chronic, Fracture, Fibromyalgia Neurological History: Reports: Alzheimers Disease, Seizure Other Neuro History: dementia Psychiatric History: Reports: Anxiety, Depression, Suicide Attempt, Suicidal Ideation Other Psychiatric History: Dementia Endocrine/Metabolic History: Reports: Hypothyroidism Other Endocrine/Metabolic History: thyroid disease Hematologic History: Reports: Blood Transfusion(s) Immunologic History: Reports: None Oncologic (Cancer) History: Reports: Breast Dermatologic History: Reports: Eczema - Infectious Disease History Infectious Disease History: Reports: Other (See Below) Other Infectious Disease History: polio - Past Surgical History Head Surgeries/Procedures: Reports: None HEENT Surgical History: Reports: Cataract Surgery, Eye Surgery, Laser Surgery Cardiovascular Surgical History: Reports: Coronary Artery Stent, Vascular Surgery Respiratory Surgical History: Reports: None GI Surgical History: Reports: Colonoscopy, EGD, Hernia Repair/Other, Small Bowel , Other (See Below) Other GI Surgeries/Procedures: three bleeding ulcers 10/2017 Female Surgical History: Reports: Breast Biopsy, Tubal Ligation Endocrine Surgical History: Reports: None Neurological Surgical History: Reports: None Musculoskeletal Surgical History: Reports: Carpal Tunnel, Other (See Below) Other Musculoskeletal Surgeries/Procedures:: ring finger surgery Oncologic Surgical History: Reports: Lumpectomy Dermatological Surgical History: Reports: None Social & Family History - Family History Family Medical History: Unobtainable - Tobacco Use Smoking Status *Q: Never Smoker - Caffeine Use Caffeine Use: Reports: None - Recreational Drug Use Recreational Drug Use: No ED ROS GENERAL - Review of Systems Review Of Systems: See Below Constitutional: Reports: No Symptoms HEENT: Reports: No Symptoms Respiratory: Reports: No Symptoms Cardiovascular: Reports: Other ( after arrival here she did not remember that she was having abdomanal pain but she then talked about chest pain) Endocrine: Reports: No Symptoms GI/Abdominal: Reports: Abdominal Pain, Other (pt has not vomited. ) : Reports: No Symptoms Musculoskeletal: Reports: No Symptoms Skin: Reports: No Symptoms ED EXAM, GI/ABD - Physical Exam Exam: See Below Text/Narrative:: pt arrived with pain her upper abdoman. She seemed to have trouble localizing where she was uncomfortable. She then started talking about chest pain. Exam Limited By: No Limitations General Appearance: Alert, Mild Distress, Other (pt does have dementia. She does not remember when she had her last bm. ) Ears: Normal TMs Nose: Normal Inspection Throat/Mouth: Normal Inspection Head: Atraumatic Neck: Normal Inspection Respiratory/Chest: No Respiratory Distress Cardiovascular: Regular Rate, Rhythm, Other ( ekg looked good. ) GI/Abdominal Exam: Soft, Other ( mild diffuse tenderness. ) Back Exam: Other (pt does have chronic back pain) Course - Vital Signs Last Recorded V/S: Last Vital Signs Temp 36.5 C 12/07/18 21:19 Pulse 65 12/07/18 21:19 Resp 18 12/07/18 21:19 BP 152/64 H 12/07/18 21:19 Pulse Ox 93 L 12/07/18 21:19 - Orders/Labs/Meds Orders: Active Orders 24 hr Category Date Time Status EKG Documentation Completion [RC] ASDIRECTED Care 12/07/18 21:49 Active Enema [RC] ASDIRECTED Care 12/07/18 22:46 Active Abdomen Series w Chest 1V [CR] Urgent Exams 12/07/18 21:56 Taken CULTURE STREP A CONFIRMATION [RM] Stat Lab 12/07/18 22:00 Results STREP SCRN A RAPID W CULT CONF [RM] Stat Lab 12/07/18 22:00 Results EKG 12 Lead [EK] Routine Ther 12/07/18 21:49 Ordered Labs: Laboratory Tests 12/07/18 12/07/18 12/07/18 Range/Units 21:44 21:44 21:51 WBC 12.4 H (4.5-11.0) K/uL RBC 4.50 (3.30-5.50) M/uL Hgb 13.9 (12.0-15.0) g/dL Hct 43.4 (36.0-48.0) % MCV 96 (80-98) fL MCH 31 (27-31) pg MCHC 32 (32-36) % Plt Count 253 (150-400) K/uL Neut % (Auto) 71 H (36-66) % Lymph % (Auto) 21 L (24-44) % Beltrami % (Auto) 6 (2-6) % Eos % (Auto) 1 L (2-4) % Baso % (Auto) 1 (0-1) % Sodium 144 (140-148) mmol/L Potassium 4.2 (3.6-5.2) mmol/L Chloride 104 (100-108) mmol/L Carbon Dioxide 32 (21-32) mmol/L Anion Gap 8.4 (5.0-14.0) mmol/L BUN 31 H D (7-18) mg/dL Creatinine 1.1 H D (0.6-1.0) mg/dL Est Cr Clr Drug Dosing 39.94 mL/min Estimated GFR (MDRD) 48 L (>60) Glucose 122 H (74-106) mg/dL Calcium 9.7 (8.5-10.1) mg/dL Total Bilirubin 0.4 (0.2-1.0) mg/dL AST 27 (15-37) U/L ALT 45 D (12-78) U/L Alkaline Phosphatase 92 (46-116) U/L C-Reactive Protein 0.25 (0.0-0.3) mg/dL Total Protein 7.3 (6.4-8.2) g/dL Albumin 3.4 (3.4-5.0) g/dL Globulin 3.9 H (2.3-3.5) g/dL Albumin/Globulin Ratio 0.9 L (1.2-2.2) Lipase (73-393) U/L Urine Color Urine Appearance Urine pH (4.5-8.0) Ur Specific Goff (1.008-1.030) Urine Protein (NEGATIVE) mg/dL Urine Glucose (UA) (NEGATIVE) mg/dL Urine Ketones (NEGATIVE) mg/dL Urine Occult Blood (NEGATIVE) Urine Nitrite (NEGATIVE) Urine Bilirubin (NEGATIVE) Urine Urobilinogen (NORMAL) mg/dL Ur Leukocyte Esterase (NEGATIVE) Urine RBC (0-5) Urine WBC (0-5) Ur Epithelial Cells Amorphous Sediment Urine Bacteria Urine Mucus 12/07/18 12/07/18 Range/Units 22:16 22:26 WBC (4.5-11.0) K/uL RBC (3.30-5.50) M/uL Hgb (12.0-15.0) g/dL Hct (36.0-48.0) % MCV (80-98) fL MCH (27-31) pg MCHC (32-36) % Plt Count (150-400) K/uL Neut % (Auto) (36-66) % Lymph % (Auto) (24-44) % Beltrami % (Auto) (2-6) % Eos % (Auto) (2-4) % Baso % (Auto) (0-1) % Sodium (140-148) mmol/L Potassium (3.6-5.2) mmol/L Chloride (100-108) mmol/L Carbon Dioxide (21-32) mmol/L Anion Gap (5.0-14.0) mmol/L BUN (7-18) mg/dL Creatinine (0.6-1.0) mg/dL Est Cr Clr Drug Dosing mL/min Estimated GFR (MDRD) (>60) Glucose (74-106) mg/dL Calcium (8.5-10.1) mg/dL Total Bilirubin (0.2-1.0) mg/dL AST (15-37) U/L ALT (12-78) U/L Alkaline Phosphatase (46-116) U/L C-Reactive Protein (0.0-0.3) mg/dL Total Protein (6.4-8.2) g/dL Albumin (3.4-5.0) g/dL Globulin (2.3-3.5) g/dL Albumin/Globulin Ratio (1.2-2.2) Lipase 190 (73-393) U/L Urine Color Yellow Urine Appearance Clear Urine pH 7.0 (4.5-8.0) Ur Specific Goff 1.015 (1.008-1.030) Urine Protein Negative (NEGATIVE) mg/dL Urine Glucose (UA) Normal (NEGATIVE) mg/dL Urine Ketones Negative (NEGATIVE) mg/dL Urine Occult Blood Negative (NEGATIVE) Urine Nitrite Negative (NEGATIVE) Urine Bilirubin Negative (NEGATIVE) Urine Urobilinogen Normal (NORMAL) mg/dL Ur Leukocyte Esterase Negative (NEGATIVE) Urine RBC Not seen (0-5) Urine WBC Not seen (0-5) Ur Epithelial Cells Not seen Amorphous Sediment Moderate Urine Bacteria Not seen Urine Mucus Moderate Meds: Medications Discontinued Medications Generic Name Dose Route Start Last Admin Trade Name Freq PRN Reason Stop Dose Admin Sodium Biphosphate/Sodium Phosphate 133 ml 12/07/18 22:59 12/07/18 23:00 Fleet Enema RECTAL 12/07/18 23:00 133 ml ONETIME ONE Administration - Re-Assessments/Exams Free Text/Narrative Re-Assessment/Exam: 12/07/18 23:18 pt has a wbc of 12,000. She is mildly dehydrated per her electrolytes. Her crp is only .25. She had a flat and yupright which did reveal alot of stool. She had a fleets enema which had a moderate result. Her urine was found to be clear. 12/07/18 23:19 12/07/18 23:20 Departure - Departure Time of Disposition: 23:21 Disposition: Home, Self-Care 01 Condition: Fair Clinical Impression: Constipation, Mild dehydration - Discharge Information Referrals: Grant Flores MD [Primary Care Provider] - Forms: ED Department Discharge Care Plan Goals: mag citrate 1 bottle in am, push fluids, try putting more fiber in the diet, use prunes daily and bran muffins or other bran containing products. - My Orders Last 24 Hours: My Active Orders 12/07/18 21:49 EKG Documentation Completion [RC] ASDIRECTED EKG 12 Lead [EK] Routine 12/07/18 21:56 Abdomen Series w Chest 1V [CR] Urgent 12/07/18 22:00 CULTURE STREP A CONFIRMATION [RM] Stat STREP SCRN A RAPID W CULT CONF [RM] Stat 12/07/18 22:46 Enema [RC] ASDIRECTED - Assessment/Plan Last 24 Hours: My Active Orders 12/07/18 21:49 EKG Documentation Completion [RC] ASDIRECTED EKG 12 Lead [EK] Routine 12/07/18 21:56 Abdomen Series w Chest 1V [CR] Urgent 12/07/18 22:00 CULTURE STREP A CONFIRMATION [RM] Stat STREP SCRN A RAPID W CULT CONF [RM] Stat 12/07/18 22:46 Enema [RC] ASDIRECTED
[2018-12-07] MEDS ORDERED: Sodium Phosphate,Monobasic/Sodium Phosphate,Dibasic Enema 133 ML Bottle RECTAL ONE (22:59)
[2018-12-07] MEDS ORDERED: Magnesium Citrate Solution 296 ML Bottle PO ONE (23:32)
[2018-12-07] MEDS ORDERED: Magnesium Citrate Solution 296 ML Bottle ONE (23:33)
== END 2018-12-07 23:36 | disposition home or self-care (01) ==
LOC: JP.ED 20:23
DX: K59.00 Constipation, unspecified (principal); E86.0 Dehydration; G30.9 Alzheimer's disease, unspecified; F02.80 Dementia in other diseases classified elsewhere, unspecified severity, without behavioral disturbance, psychotic disturbance, mood disturbance, and anxiety; R56.9 Unspecified convulsions; I25.2 Old myocardial infarction; I25.10 Atherosclerotic heart disease of native coronary artery without angina pectoris; J44.9 Chronic obstructive pulmonary disease, unspecified; F32.9 Major depressive disorder, single episode, unspecified; E03.9 Hypothyroidism, unspecified; E78.00 Pure hypercholesterolemia, unspecified; Z79.82 Long term (current) use of aspirin; Z79.899 Other long term (current) drug therapy; Z90.10 Acquired absence of unspecified breast and nipple; Z98.891 History of uterine scar from previous surgery; Z98.49 Cataract extraction status, unspecified eye
CPT/HCPCS: 36415; 74022; 80053; 81001; 83690; 85025; 86140; 87081; 87430; 93005; 99284; A9270; 93010

== ENCOUNTER 2019-11-01 02:35 | Emergency (ER) | payer MEDICARE, MEDICAID ==
[2019-11-01] MEDS ORDERED: Sodium Chloride 0.9% 10 ML Syringe FLUSH PRN (02:50)
--- NOTE | 2019-11-01 02:50 | EDM.PDOC ---
ED HPI GENERAL MEDICAL PROBLEM - General Chief Complaint: Chest Pain Stated Complaint: [facility] Time Seen by Provider: 11/01/19 02:42 Source of Information: Reports: Patient. Denies: Police History Limitations: Reports: No Limitations - History of Present Illness INITIAL COMMENTS - FREE TEXT/NARRATIVE: pt arrived with nausea and chest pain. She does have a history of gerd. Onset: Other (started tonight. ) Duration: Hour(s): Location: Reports: Chest Associated Symptoms: Reports: Chest Pain - Related Data Allergies Allergy/AdvReac Type Severity Reaction Status Date / Time No Known Allergies Allergy Verified 11/01/19 02:42 Home Meds: Home Meds Levothyroxine [Synthroid] 75 mcg PO ACBRK 06/15/14 [History] Memantine HCl [Namenda] 10 mg PO BID 06/15/14 [History] Aspirin [Halfprin] 81 mg PO DAILY 07/23/14 [History] Nitroglycerin 0.4 mg SL ASDIRECTED PRN 02/11/15 [History] atorvaSTATin [Lipitor] 40 mg PO BEDTIME 02/11/15 [History] Citalopram [Citalopram HBr] 10 mg PO DAILY 08/19/15 [History] ARIPiprazole [Abilify] 2 mg PO DAILY 10/08/17 [History] Exemestane [Aromasin] 25 mg PO DAILY 09/26/18 [History] Multivit,Tx with Iron,Minerals [Therems-M] 1 tab PO DAILY 09/26/18 [History] Acetaminophen [Tylenol] 650 mg PO Q4H PRN 12/07/18 [History] Amitriptyline [Elavil] 25 mg PO BEDTIME 11/01/19 [History] Furosemide 20 mg PO DAILY 11/01/19 [History] Loratadine [Claritin] 10 mg PO DAILY 11/01/19 [History] Rivastigmine Tartrate [Rivastigmine] 4.5 mg PO BID 11/01/19 [History] Sennosides [Senna] 8.6 mg PO DAILY 11/01/19 [History] carvediloL [Carvedilol] 6.25 mg PO BID 11/01/19 [History] Past Medical History HEENT History: Reports: Cataract, Impaired Vision Cardiovascular History: Reports: CAD, High Cholesterol, [place], Stents, Syncope Respiratory History: Reports: Bronchitis, Recurrent, COPD, SOB Gastrointestinal History: Reports: Bowel Obstruction, Diverticulosis, Gastritis , GI Bleed, PUD Genitourinary History: Reports: UTI, Recurrent 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: , 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 (See Below) Other STOCK SPECULATOR History: breast lumpectomy Musculoskeletal History: Reports: Back Pain, Chronic, Fracture, Fibromyalgia Neurological History: Reports: Alzheimers Disease, Seizure Other Neuro History: dementia Psychiatric History: Reports: Anxiety, Depression, Suicide Attempt, Suicidal Ideation Other Psychiatric History: Dementia Endocrine/Metabolic History: Reports: Hypothyroidism Other Endocrine/Metabolic History: thyroid disease Hematologic History: Reports: Blood Transfusion(s) Immunologic History: Reports: None Oncologic (Cancer) History: Reports: Breast Dermatologic History: Reports: Eczema - Infectious Disease History Infectious Disease History: Reports: Other (See Below) Other Infectious Disease History: polio - Past Surgical History Head Surgeries/Procedures: Reports: None HEENT Surgical History: Reports: Cataract Surgery, Eye Surgery, Laser Surgery Cardiovascular Surgical History: Reports: Coronary Artery Stent, Vascular Surgery Respiratory Surgical History: Reports: None GI Surgical History: Reports: Colonoscopy, EGD, Hernia Repair/Other, Small Bowel , Other (See Below) Other GI Surgeries/Procedures: three bleeding ulcers 10/2017 Female Surgical History: Reports: Breast Biopsy, Tubal Ligation Endocrine Surgical History: Reports: None Neurological Surgical History: Reports: None Musculoskeletal Surgical History: Reports: Carpal Tunnel, Other (See Below) Other Musculoskeletal Surgeries/Procedures:: ring finger surgery Oncologic Surgical History: Reports: Lumpectomy Dermatological Surgical History: Reports: None Social & Family History - Family History Family Medical History: Unobtainable - Caffeine Use Caffeine Use: Reports: None ED ROS GENERAL - Review of Systems Review Of Systems: See Below Constitutional: Reports: No Symptoms HEENT: Reports: No Symptoms Respiratory: Reports: No Symptoms Cardiovascular: Reports: Chest Pain, Other (pt denies having chest pain but she is from the memory unit. ) Endocrine: Reports: No Symptoms GI/Abdominal: Reports: Nausea : Reports: No Symptoms Musculoskeletal: Reports: No Symptoms Skin: Reports: No Symptoms Neurological: Reports: Other (pt has a history of dementia. ) ED EXAM, GENERAL - Physical Exam Exam: See Below Free Text/Narrative:: pt is from the memory unit and had some nausea after she ate dinner. She states that she just had nausea and did not have chest pain. She does have a history of gerd. Exam Limited By: No Limitations General Appearance: Alert, Anxious, Mild Distress Ears: Normal TMs Nose: Normal Inspection Throat/Mouth: Normal Inspection Head: Atraumatic Neck: Normal Inspection Respiratory/Chest: No Respiratory Distress Cardiovascular: Regular Rate, Rhythm GI/Abdominal: Soft, Tender, Other ( mild tenderness in the epigastric area. ) (Female) Exam: Deferred Rectal (Female) Exam: Deferred Back Exam: Normal Inspection Extremities: Normal Inspection Neurological: Alert, Oriented, Normal Cognition Psychiatric: Other (pt does have dementia. ) Course - Vital Signs Last Recorded V/S: Last Vital Signs Temp 35.8 C 11/01/19 03:27 Pulse 52 L 11/01/19 06:17 Resp 13 11/01/19 06:17 BP 125/62 11/01/19 06:17 Pulse Ox 97 11/01/19 06:17 - Orders/Labs/Meds Orders: Active Orders 24 hr Category Date Time Status EKG Documentation Completion [RC] ASDIRECTED Care 11/01/19 03:25 Active CULTURE URINE [RM] Stat Lab 11/01/19 06:13 Received Sodium Chloride 0.9% [Normal Saline] 1,000 ml Med 11/01/19 03:00 Active IV ASDIRECTED Sodium Chloride 0.9% [Saline Flush] Med 11/01/19 02:50 Active 10 ml FLUSH ASDIRECTED PRN Saline Lock Insert [OM.PC] Routine Oth 11/01/19 02:50 Ordered EKG 12 Lead [EK] Routine Ther 11/01/19 03:25 Ordered Medication Orders Sodium Chloride (Normal Saline) 1,000 mls @ 250 mls/hr IV ASDIRECTED ALBETRO Last Admin: 11/01/19 03:20 Dose: 250 mls/hr Sodium Chloride (Saline Flush) 10 ml FLUSH ASDIRECTED PRN PRN Reason: Keep Vein Open Last Admin: 11/01/19 03:20 Dose: 10 ml Labs: Laboratory Tests 11/01/19 11/01/19 11/01/19 Range/Units 02:44 02:44 02:44 WBC 6.3 (4.5-11.0) K/uL RBC 4.51 (3.30-5.50) M/uL Hgb 13.6 (12.0-15.0) g/dL Hct 43.2 (36.0-48.0) % MCV 96 (80-98) fL MCH 30 (27-31) pg MCHC 32 (32-36) % Plt Count 239 (150-400) K/uL Neut % (Auto) 62 (36-66) % Lymph % (Auto) 29 (24-44) % [place] % (Auto) 7 H (2-6) % Eos % (Auto) 2 (2-4) % Baso % (Auto) 1 (0-1) % Sodium 138 L (140-148) mmol/L Potassium 3.9 (3.6-5.2) mmol/L Chloride 101 (100-108) mmol/L Carbon Dioxide 27 (21-32) mmol/L Anion Gap 13.9 (5.0-14.0) mmol/L BUN 14 D (7-18) mg/dL Creatinine 0.8 (0.6-1.0) mg/dL Est Cr Clr Drug Dosing 52.99 mL/min Estimated GFR (MDRD) > 60 (>60) Glucose 138 H (74-106) mg/dL Calcium 8.9 (8.5-10.1) mg/dL Total Bilirubin 0.6 (0.2-1.0) mg/dL AST 45 H (15-37) U/L ALT 50 (12-78) U/L Alkaline Phosphatase 111 (46-116) U/L Troponin I < 0.017 (0.000-0.056) ng/mL Total Protein 7.2 (6.4-8.2) g/dL Albumin 3.2 L (3.4-5.0) g/dL Globulin 4.0 H (2.3-3.5) g/dL Albumin/Globulin Ratio 0.8 L (1.2-2.2) Urine Color (YELLOW) Urine Appearance (CLEAR) Urine pH (5.0-8.0) Ur Specific Reubens (1.008-1.030) Urine Protein (NEGATIVE) mg/dL Urine Glucose (UA) (NEGATIVE) mg/dL Urine Ketones (NEGATIVE) mg/dL Urine Occult Blood (NEGATIVE) Urine Nitrite (NEGATIVE) Urine Bilirubin (NEGATIVE) Urine Urobilinogen (0.2-1.0) EU/dL Ur Leukocyte Esterase (NEGATIVE) Urine RBC (0-5) Urine WBC (0-5) Ur Epithelial Cells Amorphous Sediment Urine Bacteria Urine Mucus 11/01/19 11/01/19 Range/Units 03:41 05:30 WBC (4.5-11.0) K/uL RBC (3.30-5.50) M/uL Hgb (12.0-15.0) g/dL Hct (36.0-48.0) % MCV (80-98) fL MCH (27-31) pg MCHC (32-36) % Plt Count (150-400) K/uL Neut % (Auto) (36-66) % Lymph % (Auto) (24-44) % [place] % (Auto) (2-6) % Eos % (Auto) (2-4) % Baso % (Auto) (0-1) % Sodium (140-148) mmol/L Potassium (3.6-5.2) mmol/L Chloride (100-108) mmol/L Carbon Dioxide (21-32) mmol/L Anion Gap (5.0-14.0) mmol/L BUN (7-18) mg/dL Creatinine (0.6-1.0) mg/dL Est Cr Clr Drug Dosing mL/min Estimated GFR (MDRD) (>60) Glucose (74-106) mg/dL Calcium (8.5-10.1) mg/dL Total Bilirubin (0.2-1.0) mg/dL AST (15-37) U/L ALT (12-78) U/L Alkaline Phosphatase (46-116) U/L Troponin I < 0.017 (0.000-0.056) ng/mL Total Protein (6.4-8.2) g/dL Albumin (3.4-5.0) g/dL Globulin (2.3-3.5) g/dL Albumin/Globulin Ratio (1.2-2.2) Urine Color Yellow (YELLOW) Urine Appearance Cloudy A (CLEAR) Urine pH 7.5 (5.0-8.0) Ur Specific Reub[place] 1.020 (1.008-1.030) Urine Protein Negative (NEGATIVE) mg/dL Urine Glucose (UA) Negative (NEGATIVE) mg/dL Urine Ketones Negative (NEGATIVE) mg/dL Urine Occult Blood Negative (NEGATIVE) Urine Nitrite Positive H (NEGATIVE) Urine Bilirubin Negative (NEGATIVE) Urine Urobilinogen 1.0 (0.2-1.0) EU/dL Ur Leukocyte Esterase Trace H (NEGATIVE) Urine RBC 0-5 (0-5) Urine WBC 5-10 H (0-5) Ur Epithelial Cells Rare Amorphous Sediment Few Urine Bacteria Many Urine Mucus Not seen Meds: Medications Generic Name Dose Route Start Last Admin Trade Name Freq PRN Reason Stop Dose Admin Sodium Chloride 1,000 mls @ 250 mls/hr 11/01/19 03:00 11/01/19 03:20 Normal Saline IV 250 mls/hr ASDIRECTED ALBERTO Administration Sodium Chloride 10 ml 11/01/19 02:50 11/01/19 03:20 Saline Flush FLUSH 10 ml ASDIRECTED PRN Administration Keep Vein Open Discontinued Medications Generic Name Dose Route Start Last Admin Trade Name Freq PRN Reason Stop Dose Admin Ondansetron HCl 4 mg 11/01/19 02:51 11/01/19 03:20 Zofran IVPUSH 11/01/19 02:52 4 mg ONETIME ONE Administration Pantoprazole Sodium 40 mg 11/01/19 02:52 11/01/19 03:20 Protonix Iv IVPUSH 11/01/19 02:53 40 mg ONETIME ONE Administration - Re-Assessments/Exams Free Text/Narrative Re-Assessment/Exam: 11/01/19 02:57 iv fluids were given zoforan 4 mg iv was given. She was given iv protonex 11/01/19 03:17 ekg did not show acute changes, her trop was normal. pt denies chest pain she states she has nausea. 11/01/19 06:13 pt had a second trop which was normal. Her urine did show a UTI Departure - Departure Time of Disposition: 06:14 Disposition: Home, Self-Care 01 Condition: Fair Clinical Impression: GERD (gastroesophageal reflux disease), UTI (urinary tract infection) Instructions: Urinary Tract Infection, Adult, Gastroesophageal Reflux Disease, Adult Referrals: Grant Flores MD [Primary Care Provider] - Forms: ED Department Discharge Care Plan Goals: prillosec 20- mg daily, cipro 500mg bid for 1 week, Sepsis Event Note - Focused Exam Vital Signs: Vital Signs Temp Pulse Resp BP Pulse Ox 11/01/19 06:17 52 L 13 125/62 97 11/01/19 05:28 75 11 L 118/56 L 96 11/01/19 04:17 56 L 11 L 121/55 L 96 11/01/19 03:27 35.8 C 54 L 14 156/72 H 97 11/01/19 02:58 35.8 C 54 L 14 156/72 H 97 Date Exam was Performed: 11/01/19 Time Exam was Performed: 06:30 - My Orders Last 24 Hours: My Active Orders 11/01/19 02:50 Sodium Chloride 0.9% [Saline Flush] 10 ml FLUSH ASDIRECTED PRN Saline Lock Insert [OM.PC] Routine 11/01/19 03:00 Sodium Chloride 0.9% [Normal Saline] 1,000 ml IV ASDIRECTED 11/01/19 03:25 EKG Documentation Completion [RC] ASDIRECTED EKG 12 Lead [EK] Routine 11/01/19 06:13 CULTURE URINE [RM] Stat - Assessment/Plan Last 24 Hours: My Active Orders 11/01/19 02:50 Sodium Chloride 0.9% [Saline Flush] 10 ml FLUSH ASDIRECTED PRN Saline Lock Insert [OM.PC] Routine 11/01/19 03:00 Sodium Chloride 0.9% [Normal Saline] 1,000 ml IV ASDIRECTED 11/01/19 03:25 EKG Documentation Completion [RC] ASDIRECTED EKG 12 Lead [EK] Routine 11/01/19 06:13 CULTURE URINE [RM] Stat
[2019-11-01] MEDS ORDERED: Ondansetron 4 MG/2 ML SDV IVPUSH ONE (02:51)
[2019-11-01] MEDS ORDERED: Pantoprazole 40 MG Vial IVPUSH ONE (02:52)
[2019-11-01] MEDS ORDERED: Sodium Chloride 0.9% 1,000 ML IV SCH (03:00)
[2019-11-01 06:17] VITALS: BP 125/62; PULSE 52
== END 2019-11-01 07:20 | disposition home or self-care (01) ==
LOC: JP.ED 02:35
DX: K21.9 Gastro-esophageal reflux disease without esophagitis (principal); N39.0 Urinary tract infection, site not specified; I25.10 Atherosclerotic heart disease of native coronary artery without angina pectoris; I25.2 Old myocardial infarction; J44.9 Chronic obstructive pulmonary disease, unspecified; G30.9 Alzheimer's disease, unspecified; F02.80 Dementia in other diseases classified elsewhere, unspecified severity, without behavioral disturbance, psychotic disturbance, mood disturbance, and anxiety; F41.9 Anxiety disorder, unspecified; F32.9 Major depressive disorder, single episode, unspecified; E03.9 Hypothyroidism, unspecified; E78.00 Pure hypercholesterolemia, unspecified; Z75.0 Medical services not available in home; Z79.82 Long term (current) use of aspirin; Z79.890 Hormone replacement therapy; Z79.899 Other long term (current) drug therapy; Z95.5 Presence of coronary angioplasty implant and graft
CPT/HCPCS: 36415; 80053; 81001; 84484; 85025; 87086; 87088; 87186; 93005; 96361; 96374; 96375; 99284; 99285; C9113; J2405; J7030; 93010

== ENCOUNTER 2019-11-02 15:24 | Emergency (ER) | payer MEDICARE, MEDICAID ==
[2019-11-02 15:32] VITALS: BP 148/73; PULSE 58
[2019-11-02] MEDS ORDERED: cefTRIAXone 1 GM in Sodium Chloride 0.9% 50 ML IV ONE (15:43)
--- NOTE | 2019-11-02 16:42 | EDM.PDOC ---
ED HPI GENERAL MEDICAL PROBLEM - General Chief Complaint: Gastrointestinal Problem Time Seen by Provider: 11/02/19 15:45 Source of Information: Reports: EMS, Family, Provider History Limitations: Reports: Physical Impairment (Patient has significant dementia, unable to give a history) - History of Present Illness INITIAL COMMENTS - FREE TEXT/NARRATIVE: 79-year-old female who started ciprofloxacin this morning for a UTI, developed nausea and vomiting afternoon. No fevers or chills. She also started rivastigmine 2 days ago and there is concern among staff and the that there is a possibility of a side effect from that as well. She was too weak to walk so they sent her in. Onset: Sudden (Symptoms of nausea vomiting and weakness started fairly suddenly after noon) Duration: Hour(s): (About 4 hours) denies Pain Score (Numeric/FACES): 0 - Related Data Allergies Allergy/AdvReac Type Severity Reaction Status Date / Time No Known Allergies Allergy Verified 11/02/19 15:36 Home Meds: Home Meds Levothyroxine [Synthroid] 75 mcg PO ACBRK 06/15/14 [History] Memantine HCl [Namenda] 10 mg PO BID 06/15/14 [History] Aspirin [Halfprin] 81 mg PO DAILY 07/23/14 [History] Nitroglycerin 0.4 mg SL ASDIRECTED PRN 02/11/15 [History] atorvaSTATin [Lipitor] 40 mg PO BEDTIME 02/11/15 [History] Citalopram [Citalopram HBr] 10 mg PO DAILY 08/19/15 [History] ARIPiprazole [Abilify] 2 mg PO DAILY 10/08/17 [History] Exemestane [Aromasin] 25 mg PO DAILY 09/26/18 [History] Multivit,Tx with Iron,Minerals [Therems-M] 1 tab PO DAILY 09/26/18 [History] Acetaminophen [Tylenol] 650 mg PO Q4H PRN 12/07/18 [History] Amitriptyline [Elavil] 25 mg PO BEDTIME 11/01/19 [History] Furosemide 20 mg PO DAILY 11/01/19 [History] Loratadine [Claritin] 10 mg PO DAILY 11/01/19 [History] Rivastigmine Tartrate [Rivastigmine] 4.5 mg PO BID 11/01/19 [History] Sennosides [Senna] 8.6 mg PO DAILY 11/01/19 [History] carvediloL [Carvedilol] 6.25 mg PO BID 11/01/19 [History] Ciprofloxacin HCl [Cipro] 500 mg PO BID 11/02/19 [History] Past Medical History HEENT History: Reports: Cataract, Impaired Vision Other HEENT History: macular edema Cardiovascular History: Reports: CAD, High Cholesterol, [place], Stents, Syncope Respiratory History: Reports: Bronchitis, Recurrent, COPD, SOB Other Respiratory History: lung nodules Gastrointestinal History: Reports: Bowel Obstruction, Diverticulosis, Gastritis , GI Bleed, PUD Genitourinary History: Reports: UTI, Recurrent 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: , Other (See Below) 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 Musculoskeletal History: Reports: Back Pain, Chronic, Fracture, Fibromyalgia Neurological History: Reports: Alzheimers Disease, Seizure Other Neuro History: dementia Psychiatric History: Reports: Anxiety, Depression, Suicide Attempt, Suicidal Ideation Other Psychiatric History: Dementia Endocrine/Metabolic History: Reports: Hypothyroidism Other Endocrine/Metabolic History: thyroid disease Hematologic History: Reports: Blood Transfusion(s) Immunologic History: Reports: None Oncologic (Cancer) History: Reports: Breast Dermatologic History: Reports: Eczema - Infectious Disease History Infectious Disease History: Reports: Chicken Pox, Measles, Mumps Other Infectious Disease History: polio - Past Surgical History Head Surgeries/Procedures: Reports: None HEENT Surgical History: Reports: Cataract Surgery, Eye Surgery, Laser Surgery Cardiovascular Surgical History: Reports: Coronary Artery Stent, Vascular Surgery Respiratory Surgical History: Reports: None GI Surgical History: Reports: Colonoscopy, EGD, Hernia Repair/Other, Small Bowel , Other (See Below) Other GI Surgeries/Procedures: three bleeding ulcers 10/2017 Female Surgical History: Reports: Breast Biopsy, Tubal Ligation Endocrine Surgical History: Reports: None Neurological Surgical History: Reports: None Musculoskeletal Surgical History: Reports: Carpal Tunnel, Other (See Below) Other Musculoskeletal Surgeries/Procedures:: ring finger surgery Oncologic Surgical History: Reports: Lumpectomy Dermatological Surgical History: Reports: None Social & Family History - Family History Family Medical History: Unobtainable - Tobacco Use Smoking Status *Q: Former Smoker Years of Tobacco use: 40 Packs/Tins Daily: 0.5 Used Tobacco, but Quit: Yes Month/Year Tobacco Last Used: 2000 Second Hand Smoke Exposure: No - Caffeine Use Caffeine Use: Reports: Soda, Tea - Recreational Drug Use Recreational Drug Use: No ED ROS GENERAL - Review of Systems Review Of Systems: See Below Constitutional: Reports: Malaise. Denies: Fever, Chills Respiratory: Denies: Shortness of Breath Cardiovascular: Denies: Chest Pain GI/Abdominal: Reports: Nausea, Vomiting. Denies: Abdominal Pain, Diarrhea : Reports: Other (UTI diagnosed 36 hours ago, first dose of Cipro taken this morning) Skin: Reports: Diaphoresis (Earlier, now resolved) Psychiatric: Reports: Confusion ED EXAM, GENERAL - Physical Exam Exam: See Below Exam Limited By: No Limitations General Appearance: Alert, No Apparent Distress, Other (Looks uncomfortable, nauseated) Eye Exam: Bilateral Eye: Normal Inspection (No jaundice, normal hydration) Head: Atraumatic Respiratory/Chest: No Respiratory Distress, Lungs Clear Cardiovascular: Regular Rate, Rhythm GI/Abdominal: Non-Tender Neurological: Alert. No: Oriented (Chronic confusion) Psychiatric: Normal Affect, Normal Mood Course - Vital Signs Last Recorded V/S: Last Vital Signs Temp 96.8 F 11/02/19 15:55 Pulse 58 L 11/02/19 15:55 Resp 20 11/02/19 15:55 BP 148/73 H 11/02/19 15:55 Pulse Ox 97 11/02/19 15:55 - Orders/Labs/Meds Meds: Medications Discontinued Medications Generic Name Dose Route Start Last Admin Trade Name Maynorq PRN Reason Stop Dose Admin Ceftriaxone Sodium 1 gm/ 50 mls @ 100 mls/hr 11/02/19 15:43 11/02/19 15:54 Sodium Chloride IV 11/02/19 16:12 100 mls/hr ONETIME ONE Administration - Re-Assessments/Exams Free Text/Narrative Re-Assessment/Exam: 11/02/19 16:43 Checked the urine culture and gram-negative rods are growing. Labs were not repeated. Patient was given 1 g of IV Rocephin and monitored for 90 minutes. After 90 minutes she was able to ambulate without a problem and nausea and vomiting was resolved. I think she was given Zofran in route. I discussed her condition with her primary provider Dr. Flores, the Cipro will be stopped, she will start cephalexin 3 times a day tomorrow evening, and hold the rivastigmine for the next 5 days Departure - Departure Time of Disposition: 17:07 Disposition: DC/[facility]fer to [facility] Clinical Impression: Nausea & vomiting Qualifiers: Vomiting type: unspecified Vomiting Intractability: non-intractable Qualified Code(s): R11.2 - Nausea with vomiting, unspecified UTI (urinary tract infection) Qualifiers: Urinary tract infection type: acute cystitis Hematuria presence: without hematuria Qualified Code(s): N30.00 - Acute cystitis without hematuria - Discharge Information Instructions: Nausea and Vomiting, Adult Referrals: Grant Flores MD [Primary Care Provider] - Forms: ED Department Discharge Care Plan Goals: Stop cipro. Start cephalexin tomorrow evening with one dose, then follow with 3 times daily until gone. Hold the new medication rivastigmine until antibiotics are finished and UTI is treated, then restart the medication. Return anytime if worsening despite treatment such as persistent fever or nausea and vomiting. Sepsis Event Note - Evaluation Sepsis Screening Result: No Definite Risk - Focused Exam Vital Signs: Vital Signs Temp Pulse Resp BP Pulse Ox 11/02/19 15:55 96.8 F 58 L 20 148/73 H 97 11/02/19 15:30 96.8 F 58 L 20 148/73 H 97 Date Exam was Performed: 11/02/19 Time Exam was Performed: 18:31
== END 2019-11-02 17:07 ==
LOC: JP.ED 15:24
DX: N30.00 Acute cystitis without hematuria (principal); R11.2 Nausea with vomiting, unspecified; I25.10 Atherosclerotic heart disease of native coronary artery without angina pectoris; E78.00 Pure hypercholesterolemia, unspecified; I25.2 Old myocardial infarction; J44.9 Chronic obstructive pulmonary disease, unspecified; F41.9 Anxiety disorder, unspecified; F32.9 Major depressive disorder, single episode, unspecified; E03.9 Hypothyroidism, unspecified; Z95.5 Presence of coronary angioplasty implant and graft; Z87.891 Personal history of nicotine dependence; Z79.82 Long term (current) use of aspirin; Z79.899 Other long term (current) drug therapy
CPT/HCPCS: 96365; 99284; 99285; J0696; J7050

== ENCOUNTER 2020-01-25 20:24 | Emergency (ER) | payer MEDICARE, MEDICAID ==
[2020-01-25 20:45] VITALS: BP 143/79; PULSE 67
--- NOTE | 2020-01-25 20:46 | EDM.PDOC ---
ED HPI GENERAL MEDICAL PROBLEM - General Chief Complaint: Chest Pain Stated Complaint: CHEST PAINS Time Seen by Provider: 01/25/20 20:25 Source of Information: Reports: EMS, Family, [facility] Records History Limitations: Reports: Physical Impairment (Patient has advanced dementia with confusion, unable to answer questions consistently) - History of Present Illness INITIAL COMMENTS - FREE TEXT/NARRATIVE: 79-year-old female who is a [facility] patient and has advanced dementia, his complaint of a cough for several weeks. She is just finishing a course of Augmentin and tonight developed an increase in her substernal discomfort which she gets occasionally chronically. However she seemed more confused than usual , her became concerned and asked for her to be seen. Her vitals are stable. Onset: Unknown/Unsure Location: Reports: Chest Associated Symptoms: Reports: Confusion (Chronic and worsening), Cough, Shortness of Breath. Denies: Fever/Chills, Headaches, Nausea/Vomiting chest Pain Score (Numeric/FACES): 6 - Related Data Allergies Allergy/AdvReac Type Severity Reaction Status Date / Time No Known Allergies Allergy Verified 01/25/20 20:26 Home Meds: Home Meds Levothyroxine [Synthroid] 75 mcg PO ACBRK 06/15/14 [History] Memantine HCl [Namenda] 10 mg PO BID 06/15/14 [History] Aspirin [Halfprin] 81 mg PO DAILY 07/23/14 [History] Nitroglycerin 0.4 mg SL ASDIRECTED PRN 02/11/15 [History] atorvaSTATin [Lipitor] 40 mg PO BEDTIME 02/11/15 [History] Citalopram [Citalopram HBr] 10 mg PO DAILY 08/19/15 [History] Exemestane [Aromasin] 25 mg PO DAILY 09/26/18 [History] Multivit,Tx with Iron,Minerals [Therems-M] 1 tab PO DAILY 09/26/18 [History] Acetaminophen [Tylenol] 650 mg PO Q4H PRN 12/07/18 [History] Amitriptyline [Elavil] 25 mg PO BEDTIME 11/01/19 [History] Furosemide 20 mg PO DAILY 11/01/19 [History] Loratadine [Claritin] 10 mg PO DAILY 11/01/19 [History] Rivastigmine Tartrate [Rivastigmine] 4.5 mg PO BID 11/01/19 [History] Sennosides [Senna] 8.6 mg PO DAILY 11/01/19 [History] carvediloL [Carvedilol] 6.25 mg PO BID 11/01/19 [History] Past Medical History HEENT History: Reports: Cataract, Impaired Vision Other HEENT History: macular edema Cardiovascular History: Reports: CAD, High Cholesterol, [place], Stents, Syncope Respiratory History: Reports: Bronchitis, Recurrent, COPD, SOB Other Respiratory History: lung nodules Gastrointestinal History: Reports: Bowel Obstruction, Diverticulosis, Gastritis , GI Bleed, PUD Genitourinary History: Reports: UTI, Recurrent 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: , Other (See Below) Other SERVICE DESK ANALYST History: breast lumpectomy Musculoskeletal History: Reports: Back Pain, Chronic, Fracture, Fibromyalgia Neurological History: Reports: Alzheimers Disease, Seizure Other Neuro History: dementia Psychiatric History: Reports: Alzheimers Disease, Anxiety, Dementia, Depression , Suicide Attempt, Suicidal Ideation Other Psychiatric History: Dementia Endocrine/Metabolic History: Reports: Hypothyroidism, Other (See Below) Other Endocrine/Metabolic History: thyroid disease Hematologic History: Reports: Blood Transfusion(s), Other (See Below) Other Hematologic History: Serum antibody Anti-D Immunologic History: Reports: None Oncologic (Cancer) History: Reports: Breast Dermatologic History: Reports: Eczema - Infectious Disease History Infectious Disease History: Reports: Chicken Pox, Measles, Mumps Other Infectious Disease History: polio - Past Surgical History Head Surgeries/Procedures: Reports: None HEENT Surgical History: Reports: Cataract Surgery, Eye Surgery, Laser Surgery Cardiovascular Surgical History: Reports: Coronary Artery Stent, Vascular Surgery GI Surgical History: Reports: Colonoscopy, EGD, Hernia Repair/Other, Small Bowel , Other (See Below) Other GI Surgeries/Procedures: three bleeding ulcers 10/2017 Female Surgical History: Reports: Breast Biopsy, Mastectomy, Tubal Ligation, Other (See Below) Other Female Surgeries/Procedures: left side mastectomy Musculoskeletal Surgical History: Reports: Carpal Tunnel, Other (See Below) Other Musculoskeletal Surgeries/Procedures:: ring finger surgery Oncologic Surgical History: Reports: Lumpectomy, Mastectomy, Other (See Below) Other Oncologic Surgeries/Procedures: Left breast Social & Family History - Family History Family Medical History: Unobtainable - Caffeine Use Caffeine Use: Reports: Soda, Tea ED ROS GENERAL - Review of Systems Review Of Systems: See Below (Obtained from the and [facility] records ) Constitutional: Denies: Fever, Chills Respiratory: Reports: Shortness of Breath, Cough Cardiovascular: Reports: Chest Pain (Intermittent substernal pain, worse with breathing or coughing) GI/Abdominal: Reports: Nausea (Occasional nausea no vomiting). Denies: Vomiting : Denies: Dysuria, Urgency Neurological: Reports: Confusion. Denies: Headache ED EXAM, GENERAL - Physical Exam Exam: See Below Exam Limited By: No Limitations General Appearance: Alert, No Apparent Distress Eye Exam: Bilateral Eye: EOMI Head: Atraumatic Neck: Supple Respiratory/Chest: No Respiratory Distress, Lungs Clear Cardiovascular: Regular Rate, Rhythm GI/Abdominal: Normal Bowel Sounds, Soft, Other (Reacts with some discomfort to palpation of the epigastric area, no guarding) Neurological: Alert. No: Oriented Psychiatric: Flat Affect Skin Exam: Warm, Dry Course - Vital Signs Last Recorded V/S: Last Vital Signs Temp 98.4 F 01/25/20 20:45 Pulse 67 01/25/20 20:45 Resp 17 01/25/20 20:45 BP 143/79 H 01/25/20 20:45 Pulse Ox 96 01/25/20 20:45 - Orders/Labs/Meds Orders: Active Orders 24 hr Category Date Time Status EKG Documentation Completion [RC] ASDIRECTED Care 01/25/20 20:46 Active EKG 12 Lead [EK] Routine Ther 01/25/20 20:46 Ordered Labs: Laboratory Tests 01/25/20 Range/Units 20:45 Troponin I < 0.017 (0.000-0.056) ng/mL - Re-Assessments/Exams Free Text/Narrative Re-Assessment/Exam: 01/25/20 20:46 Patient was just in the clinic within the last week and started on antibiotics, these are now almost finished and are likely giving her some epigastric upset. Troponin was obtained as well as an EKG for reassurance. EKG showed no acute findings. 01/25/20 21:22 Patient remained comfortable while in the emergency room, stable, and her troponin was 0. I am recommending stopping the Augmentin and keeping her follow -up appointment next week with your primary provider as scheduled. Departure - Departure Time of Disposition: 21:38 Disposition: DC/Tfer to [facility] 63 Clinical Impression: Bronchitis, Chest pain, atypical - Discharge Information Instructions: Nonspecific Chest Pain, [id number] Referrals: Grant Flores MD [Primary Care Provider] - Forms: ED Department Discharge Care Plan Goals: Stop Augmentin and continue her other regular medications. Keep her follow-up appointment with her primary provider next week as scheduled, or return sooner if worsening such as increasing shortness of breath or persistent pain. Sepsis Event Note - Focused Exam Vital Signs: Vital Signs Temp Pulse Resp BP Pulse Ox 01/25/20 20:45 98.4 F 67 17 143/79 H 96 01/25/20 20:44 98.4 F 67 17 143/79 H 96 01/25/20 20:42 66 12 149/72 H 98 Date Exam was Performed: 01/25/20 Time Exam was Performed: 23:43 - My Orders Last 24 Hours: My Active Orders 01/25/20 20:46 EKG Documentation Completion [RC] ASDIRECTED EKG 12 Lead [EK] Routine - Assessment/Plan Last 24 Hours: My Active Orders 01/25/20 20:46 EKG Documentation Completion [RC] ASDIRECTED EKG 12 Lead [EK] Routine
== END 2020-01-25 21:40 ==
LOC: JP.ED 20:24
DX: J40 Bronchitis, not specified as acute or chronic (principal); R07.89 Other chest pain; E03.9 Hypothyroidism, unspecified; I25.10 Atherosclerotic heart disease of native coronary artery without angina pectoris; E78.00 Pure hypercholesterolemia, unspecified; I25.2 Old myocardial infarction; G30.9 Alzheimer's disease, unspecified; F02.80 Dementia in other diseases classified elsewhere, unspecified severity, without behavioral disturbance, psychotic disturbance, mood disturbance, and anxiety; Z79.899 Other long term (current) drug therapy
CPT/HCPCS: 36415; 84484; 93005; 93010; 99283; 99285-25

== ENCOUNTER 2020-02-18 22:14 | Observation (INO) | payer MEDICARE, MEDICAID ==
[2020-02-18] MEDS ORDERED: Ondansetron 4 MG/2 ML SDV IVPUSH ONE (22:35)
[2020-02-18] MEDS ORDERED: Lactated Ringers 1,000 ML IV ONE (22:36)
--- NOTE | 2020-02-18 22:48 | EDM.PDOC ---
ED HPI GENERAL MEDICAL PROBLEM - General Chief Complaint: Gastrointestinal Problem Stated Complaint: MED[facility] Time Seen by Provider: 02/18/20 22:25 Source of Information: Reports: Patient, EMS, Old Records, RN History Limitations: Reports: Other (dementia) - History of Present Illness INITIAL COMMENTS - FREE TEXT/NARRATIVE: 79 yo female is sent via EMS to the ER for vomiting what staff at her [facility] felt was blood. EMS administered Zofran 4 mg IV en route. Patient was able to ambulate for EMS. No fever reported. Patient is not a good historian due to existing dementia. Onset: Today Onset Date: 02/18/20 Duration: Waxing/Waning Location: Reports: Abdomen Quality: Reports: Other (Pain not reported) Severity: Moderate Improves with: Reports: Medication (Zofran IV) Worsens with: Reports: Other (uncertain. 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: Other (see below) (Zofran 4 mg IV per EMS) - Related Data Allergies Allergy/AdvReac Type Severity Reaction Status Date / Time No Known Allergies Allergy Verified 01/25/20 20:26 Home Meds: Home Meds Levothyroxine [Synthroid] 75 mcg PO ACBRK 06/15/14 [History] Memantine HCl [Namenda] 10 mg PO BID 06/15/14 [History] Aspirin [Halfprin] 81 mg PO DAILY 07/23/14 [History] Nitroglycerin 0.4 mg SL ASDIRECTED PRN 02/11/15 [History] atorvaSTATin [Lipitor] 40 mg PO BEDTIME 02/11/15 [History] Citalopram [Citalopram HBr] 10 mg PO DAILY 08/19/15 [History] Exemestane [Aromasin] 25 mg PO DAILY 09/26/18 [History] Multivit,Tx with Iron,Minerals [Therems-M] 1 tab PO DAILY 09/26/18 [History] Acetaminophen [Tylenol] 650 mg PO Q4H PRN 12/07/18 [History] Amitriptyline [Elavil] 25 mg PO BEDTIME 11/01/19 [History] Furosemide 20 mg PO DAILY 11/01/19 [History] Loratadine [Claritin] 10 mg PO DAILY 11/01/19 [History] Rivastigmine Tartrate [Rivastigmine] 4.5 mg PO BID 11/01/19 [History] Sennosides [Senna] 8.6 mg PO DAILY 11/01/19 [History] carvediloL [Carvedilol] 6.25 mg PO BID 11/01/19 [History] Past Medical History HEENT History: Reports: Cataract, Impaired Vision Other HEENT History: macular edema Cardiovascular History: Reports: CAD, High Cholesterol, [place], Stents, Syncope Respiratory History: Reports: Bronchitis, Recurrent, COPD, SOB Other Respiratory History: lung nodules Gastrointestinal History: Reports: Bowel Obstruction, Diverticulosis, Gastritis , GI Bleed, PUD Genitourinary History: Reports: UTI, Recurrent 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: , Other (See Below) Other ROUTER TENDER History: breast lumpectomy Musculoskeletal History: Reports: Back Pain, Chronic, Fracture, Fibromyalgia Neurological History: Reports: Alzheimers Disease, Seizure Other Neuro History: dementia Psychiatric History: Reports: Alzheimers Disease, Anxiety, Dementia, Depression , Suicide Attempt, Suicidal Ideation Other Psychiatric History: Dementia Endocrine/Metabolic History: Reports: Hypothyroidism, Other (See Below) Other Endocrine/Metabolic History: thyroid disease Hematologic History: Reports: Blood Transfusion(s), Other (See Below) Other Hematologic History: Serum antibody Anti-D Immunologic History: Reports: None Oncologic (Cancer) History: Reports: Breast Dermatologic History: Reports: Eczema - Infectious Disease History Infectious Disease History: Reports: Chicken Pox, Measles, Mumps Other Infectious Disease History: polio - Past Surgical History Head Surgeries/Procedures: Reports: None HEENT Surgical History: Reports: Cataract Surgery, Eye Surgery, Laser Surgery Cardiovascular Surgical History: Reports: Coronary Artery Stent, Vascular Surgery GI Surgical History: Reports: Colonoscopy, EGD, Hernia Repair/Other, Small Bowel , Other (See Below) Other GI Surgeries/Procedures: three bleeding ulcers 10/2017 Female Surgical History: Reports: Breast Biopsy, Mastectomy, Tubal Ligation, Other (See Below) Other Female Surgeries/Procedures: left side mastectomy Musculoskeletal Surgical History: Reports: Carpal Tunnel, Other (See Below) Other Musculoskeletal Surgeries/Procedures:: ring finger surgery Oncologic Surgical History: Reports: Lumpectomy, Mastectomy, Other (See Below) Other Oncologic Surgeries/Procedures: Left breast Social & Family History - Family History Family Medical History: Unobtainable - Caffeine Use Caffeine Use: Reports: Soda, Tea ED ROS GENERAL - Review of Systems Review Of Systems: Unable To Obtain Reason Not Obtained: dementia GI/Abdominal: Reports: Nausea, Vomiting (dark emesis) ED EXAM, GI/ABD - Physical Exam Exam: See Below Exam Limited By: No Limitations General Appearance: Alert, WD/WN, No Apparent Distress, Obese Eyes: Bilateral: Normal Appearance Ears: Normal External Exam, Normal Canal, Hearing Grossly Normal Nose: Normal Inspection, No Blood Throat/Mouth: Normal Inspection, Normal Lips, Normal Oropharynx, Normal Voice, No Airway Compromise Head: Atraumatic, Normocephalic Respiratory/Chest: No Respiratory Distress, Lungs Clear, Normal Breath Sounds, No Accessory Muscle Use, Other (shallow respirations) Cardiovascular: Regular Rate, Rhythm, No Edema GI/Abdominal Exam: Normal Bowel Sounds, Soft, Non-Tender, No Distention Back Exam: Normal Inspection Extremities: Normal Inspection, Normal Range of Motion, Non-Tender, No Pedal Edema Neurological: Alert, CN II-XII Intact, No Motor/Sensory Deficits. No: Oriented , Normal Cognition Psychiatric: Normal Affect, Normal Mood Skin Exam: Warm, Dry, Intact, Normal Color, No Rash Course - Vital Signs Last Recorded V/S: Last Vital Signs Temp 35.3 C L 02/18/20 22:35 Pulse 62 02/18/20 22:35 Resp 14 02/18/20 22:35 BP 178/82 H 02/18/20 22:35 Pulse Ox 94 L 02/18/20 22:35 - Orders/Labs/Meds Orders: Active Orders 24 hr Category Date Time Status Chest 1V Frontal [CR] Stat Exams 02/18/20 22:36 Taken UA W/MICROSCOPIC [URIN] Stat Lab 02/18/20 22:36 Ordered Lactated Ringers [Ringers, Lactated] 1,000 ml Med 02/18/20 22:36 Active IV BOLUS Medication Orders Lactated Ringer's (Ringers, Lactated) 1,000 mls @ 1,000 mls/hr IV BOLUS ONE Stop: 02/18/20 23:35 Last Admin: 02/18/20 23:16 Dose: 1,000 mls/hr Labs: Laboratory Tests 02/18/20 02/18/20 Range/Units 22:47 22:47 WBC 9.1 (4.5-11.0) K/uL RBC 4.67 (3.30-5.50) M/uL Hgb 14.7 (12.0-15.0) g/dL Hct 44.1 (36.0-48.0) % MCV 94 (80-98) fL MCH 32 H (27-31) pg MCHC 33 (32-36) % Plt Count 283 (150-400) K/uL Sodium 142 (140-148) mmol/L Potassium 3.2 L (3.6-5.2) mmol/L Chloride 104 (100-108) mmol/L Carbon Dioxide 25 (21-32) mmol/L Anion Gap 16.2 H (5.0-14.0) mmol/L BUN 15 (7-18) mg/dL Creatinine 0.7 (0.6-1.0) mg/dL Est Cr Clr Drug Dosing TNP Estimated GFR (MDRD) > 60 (>60) Glucose 124 H (74-106) mg/dL Calcium 9.0 (8.5-10.1) mg/dL Troponin I < 0.017 (0.000-0.056) ng/mL Meds: Medications Generic Name Dose Route Start Last Admin Trade Name Freq PRN Reason Stop Dose Admin Lactated Ringer's 1,000 mls @ 1,000 mls/hr 02/18/20 22:36 02/18/20 23:16 Ringers, Lactated IV 02/18/20 23:35 1,000 mls/hr BOLUS ONE Administration Discontinued Medications Generic Name Dose Route Start Last Admin Trade Name Freq PRN Reason Stop Dose Admin Ondansetron HCl 4 mg 02/18/20 22:35 02/18/20 23:17 Zofran IVPUSH 02/18/20 22:36 4 mg ONETIME ONE Administration Pantoprazole Sodium 40 mg 02/18/20 22:51 02/18/20 23:07 Protonix Iv IVPUSH 02/18/20 22:52 40 mg ONETIME ONE Administration - Radiology Interpretation Free Text/Narrative:: CXR-neg Departure - Departure Time of Disposition: 23:45 Disposition: Admitted As Inpatient 68 Condition: Fair Clinical Impression: Hypokalemia Nausea and vomiting Qualifiers: Vomiting type: unspecified Vomiting Intractability: non-intractable Qualified Code(s): R11.2 - Nausea with vomiting, unspecified Hematemesis Qualifiers: Nausea presence: with nausea Qualified Code(s): K92.0 - Hematemesis - Discharge Information *PRESCRIPTION DRUG MONITORING PROGRAM REVIEWED*: Not Applicable *COPY OF PRESCRIPTION DRUG MONITORING REPORT IN PATIENT LUIS FERNANDO: Not Applicable Referrals: PCP,None [Primary Care Provider] - Forms: ED Department Discharge Sepsis Event Note - Evaluation Sepsis Screening Result: No Definite Risk - Focused Exam Vital Signs: Vital Signs Temp Pulse Resp BP Pulse Ox 02/18/20 22:35 35.3 C L 62 14 178/82 H 94 L 02/18/20 22:32 35.3 C L 62 14 178/82 H 94 L Date Exam was Performed: 02/18/20 Time Exam was Performed: 23:34 - My Orders Last 24 Hours: My Active Orders 02/18/20 22:36 Chest 1V Frontal [CR] Stat UA W/MICROSCOPIC [URIN] Stat Lactated Ringers [Ringers, Lactated] 1,000 ml IV BOLUS - Assessment/Plan Last 24 Hours: My Active Orders 02/18/20 22:36 Chest 1V Frontal [CR] Stat UA W/MICROSCOPIC [URIN] Stat Lactated Ringers [Ringers, Lactated] 1,000 ml IV BOLUS
[2020-02-18] MEDS ORDERED: Pantoprazole 40 MG Vial IVPUSH ONE (22:51)
[2020-02-19] MEDS: Sodium Chloride 0.9% 1,000 ML IV SCH ×2 (00:15→09:14)
[2020-02-19] MEDS ORDERED: Aluminum Hydroxide/Magnesium Hydroxide/Simethicone Susp 30 ML Cup PO ONE (00:38)
[2020-02-19] MEDS ORDERED: Temazepam 15 MG Cap PO PRN (01:07)
[2020-02-19] MEDS ORDERED: oxyCODONE 5 MG Tab PO PRN (01:07)
[2020-02-19] MEDS ORDERED: Morphine 2 MG/ML Syringe IVPUSH PRN (01:07)
[2020-02-19] MEDS ORDERED: Melatonin 3 MG Tab PO PRN (01:07)
[2020-02-19] MEDS ORDERED: LORazepam 2 MG/ML SDV IV PRN (01:07)
[2020-02-19] MEDS ORDERED: Ondansetron 4 MG Tab.DIS PO PRN (01:07)
[2020-02-19] MEDS ORDERED: Docusate Sodium 100 MG Cap PO PRN (01:07)
[2020-02-19] MEDS ORDERED: Sennosides 8.6 MG Tab PO PRN (01:07)
[2020-02-19] MEDS ORDERED: Albuterol 0.083% 2.5 MG/3 ML Neb Soln NEB PRN (01:07)
[2020-02-19] MEDS ORDERED: Potassium Chloride 20 MEQ in Premix Bag 1 BAG IV ONE (01:07)
[2020-02-19] MEDS ORDERED: Bisacodyl 5 MG Tab PO PRN (01:07)
--- NOTE | 2020-02-19 01:07 | PCM.HP.2 ---
H&P History of Present Illness - General Date of Service: 02/18/20 Admit Problem/Dx: Admission Diagnosis/Problem Admission Diagnosis/Problem Gastrointestinal hemorrhage Source of Information: EMS Notes Reviewed, Family ( at bedside), Provider , RN History Limitations: Reports: Altered Mental Status (Alzeheimer's dementia) - History of Present Illness Initial Comments - Free Text/Narative: chief complaint: abdominal pain with nausea and vomiting. 79 yo female is sent via EMS to the ER for vomiting what staff at her Memory Care Unit felt was blood. EMS administered Zofran 4 mg IV en route. Patient was able to ambulate for EMS. No fever reported. Patient is not a good historian due to existing dementia. Onset: Today reports not feeling well for the past two days. complaints of abdominal pain. Onset of Symptoms: Reports: Gradual Symptom Onset Date: 02/17/20 Duration of Symptoms: Reports: Day(s):, Waxing/Waning Location: Reports: Abdomen Quality: Reports: Ache Severity: Mild Improves with: Reports: None Worsens with: Reports: None Context: Reports: Other (past history of GI bleed) Associated Symptoms: Reports: Loss of Appetite, Nausea/Vomiting abd pain Pain Score (Numeric/FACES): 0 - Related Data Allergies/Adverse Reactions: Allergies Allergy/AdvReac Type Severity Reaction Status Date / Time No Known Allergies Allergy Verified 01/25/20 20:26 Home Medications: Home Meds Levothyroxine [Synthroid] 75 mcg PO ACBRK 06/15/14 [History] Memantine HCl [Namenda] 28 mg PO DAILY 06/15/14 [History] Aspirin [Halfprin] 81 mg PO DAILY 07/23/14 [History] atorvaSTATin [Lipitor] 40 mg PO BEDTIME 02/11/15 [History] Citalopram [Citalopram HBr] 10 mg PO DAILY 08/19/15 [History] Exemestane [Aromasin] 25 mg PO DAILY 09/26/18 [History] Multivit,Tx with Iron,Minerals [Therems-M] 1 tab PO DAILY 09/26/18 [History] Acetaminophen [Tylenol] 650 mg PO TID 12/07/18 [History] Amitriptyline [Elavil] 25 mg PO BEDTIME 11/01/19 [History] Furosemide 20 mg PO DAILY 11/01/19 [History] Loratadine [Claritin] 10 mg PO DAILY 11/01/19 [History] Rivastigmine Tartrate [Rivastigmine] 4.5 mg PO BID 11/01/19 [History] Sennosides [Senna] 8.6 mg PO DAILY PRN 11/01/19 [History] carvediloL [Carvedilol] 6.25 mg PO BID 11/01/19 [History] Donepezil HCl [Aricept] 1 tab PO BEDTIME 02/18/20 [History] 147/Iron/Folic Acid [Azesco Tablet] 1 tab PO DAILY 02/18/20 [History] Triamcinolone Acetonide [Triamcinolone Acetonide 0.1% Crm] 1 dose TOP BID [History] Lidocaine HCl [Aspercreme Lidocaine] 1 dose TOP ASDIRECTED PRN 02/19/20 [History ] Nystatin 1 dose TOP ASDIRECTED PRN 02/19/20 [History] Past Medical History HEENT History: Reports: Cataract, Impaired Vision Other HEENT History: macular edema Cardiovascular History: Reports: CAD, High Cholesterol, AR, Stents, Syncope Respiratory History: Reports: Bronchitis, Recurrent, COPD, SOB Other Respiratory History: lung nodules Gastrointestinal History: Reports: Bowel Obstruction, Diverticulosis, Gastritis , GI Bleed, PUD Genitourinary History: Reports: UTI, Recurrent [employer] History: Reports: , Other (See Below) Other OB/BYN History: breast lumpectomy Musculoskeletal History: Reports: Back Pain, Chronic, Fracture, Fibromyalgia Neurological History: Reports: Alzheimers Disease, Seizure Other Neuro History: dementia Psychiatric History: Reports: Alzheimers Disease, Anxiety, Dementia, Depression , Suicide Attempt, Suicidal Ideation Other Psychiatric History: Dementia Endocrine/Metabolic History: Reports: Hypothyroidism, Other (See Below) Other Endocrine/Metabolic History: thyroid disease Hematologic History: Reports: Blood Transfusion(s), Other (See Below) Other Hematologic History: Serum antibody Anti-D Immunologic History: Reports: None Oncologic (Cancer) History: Reports: Breast Dermatologic History: Reports: Eczema - Infectious Disease History Infectious Disease History: Reports: Chicken Pox, Measles, Mumps Other Infectious Disease History: polio - Past Surgical History Head Surgeries/Procedures: Reports: None HEENT Surgical History: Reports: Cataract Surgery, Eye Surgery, Laser Surgery Cardiovascular Surgical History: Reports: Coronary Artery Stent, Vascular Surgery GI Surgical History: Reports: Colonoscopy, EGD, Hernia Repair/Other, Small Bowel , Other (See Below) Other GI Surgeries/Procedures: three bleeding ulcers 10/2017 Female Surgical History: Reports: Breast Biopsy, Mastectomy, Tubal Ligation, Other (See Below) Other Female Surgeries/Procedures: left side mastectomy Musculoskeletal Surgical History: Reports: Carpal Tunnel, Other (See Below) Other Musculoskeletal Surgeries/Procedures:: ring finger surgery Oncologic Surgical History: Reports: Lumpectomy, Mastectomy, Other (See Below) Other Oncologic Surgeries/Procedures: Left breast Social & Family History - Family History Family Medical History: Unobtainable - Tobacco Use Smoking Status *Q: Never Smoker - Caffeine Use Caffeine Use: Reports: Soda, Tea - Recreational Drug Use Recreational Drug Use: No - Living Situation & Occupation Living situation: Reports: , Extended Care Facility Occupation: Disabled (lives at Memory Care Unit for 3 years, lives [place] of [place] at [facility], has 3 Daughters all live in [place].) H&P Review of Systems - Review of Systems: Review Of Systems: Unable To Obtain ( give report of symptoms. reports talk with her atleast 4 times a day.) Reason Not Obtained: Alzeheimer's Dementia General: Reports: Decreased Appetite HEENT: Reports: Glasses (reading glasses) Pulmonary: Reports: No Symptoms, Other ( report has been having bronchititis off and on all winter.) Cardiovascular: Reports: No Symptoms Gastrointestinal: Reports: Abdominal Pain, Hematemesis (Nurse report "one pea size blood chunk" of dark blood in scant emesis. ) Genitourinary: Reports: Other ( reports frequent urinary tract infection. ) Musculoskeletal: Reports: No Symptoms Skin: Reports: No Symptoms Psychiatric: Reports: Other (Alzeheimer's Dementia) Neurological: Reports: Pre-Existing Deficit Hematologic/Lymphatic: Reports: No Symptoms Immunologic: Reports: No Symptoms Exam - Exam Exam: See Below - Vital Signs Vital Signs: Last Vital Signs Temp 35.1 C L 02/19/20 00:53 Pulse 61 02/19/20 00:53 Resp 13 02/19/20 00:53 BP 148/79 H 02/19/20 00:53 Pulse Ox 90 L 02/19/20 00:53 Weight: 81.647 kg - Exam Quality Assessment: DVT Prophylaxis General: Alert, Cooperative HEENT: PERRLA, Other (mouth dry, natural teeth present) Neck: Supple, Trachea Midline Lungs: Clear to Auscultation, Normal Respiratory Effort Cardiovascular: Regular Rate, Regular Rhythm, Normal S1, Normal S2 GI/Abdominal Exam: Normal Bowel Sounds, Soft, Non-Tender, No Organomegaly, No Distention, No Abnormal Bruit, No Mass, Pelvis Stable (Female) Exam: Deferred Rectal (Female) Exam: Deferred Back Exam: Normal Inspection, Full Range of Motion, NT Extremities: Normal Inspection, Normal Range of Motion, Non-Tender, No Pedal Edema, Normal Capillary Refill Skin: Warm, Dry, Intact Neurological: Strength Equal Bilateral Neuro Extensive - Mental Status: Alert, Normal Mood/Affect (pleasant) Psychiatric: Alert, Normal Affect, Normal Mood - Patient Data Lab Results Last 24 hrs: Laboratory Results - last 24 hr 02/18/20 02/18/20 02/18/20 Range/Units 22:47 22:47 23:37 WBC 9.1 (4.5-11.0) K/uL RBC 4.67 (3.30-5.50) M/uL Hgb 14.7 (12.0-15.0) g/dL Hct 44.1 (36.0-48.0) % MCV 94 (80-98) fL MCH 32 H (27-31) pg MCHC 33 (32-36) % Plt Count 283 (150-400) K/uL Sodium 142 (140-148) mmol/L Potassium 3.2 L (3.6-5.2) mmol/L Chloride 104 (100-108) mmol/L Carbon Dioxide 25 (21-32) mmol/L Anion Gap 16.2 H (5.0-14.0) mmol/L BUN 15 (7-18) mg/dL Creatinine 0.7 (0.6-1.0) mg/dL Est Cr Clr Drug Dosing TNP Estimated GFR (MDRD) > 60 (>60) Glucose 124 H (74-106) mg/dL Calcium 9.0 (8.5-10.1) mg/dL Troponin I < 0.017 (0.000-0.056) ng/mL Urine Color Yellow (YELLOW) Urine Appearance Cloudy A (CLEAR) Urine pH 6.0 (5.0-8.0) Ur Specific [place] >= 1.030 (1.008-1.030) Urine Protein Negative (NEGATIVE) mg/dL Urine Glucose (UA) Negative (NEGATIVE) mg/dL Urine Ketones Trace H (NEGATIVE) mg/dL Urine Occult Blood Trace-intact H (NEGATIVE) Urine Nitrite Positive H (NEGATIVE) Urine Bilirubin Negative (NEGATIVE) Urine Urobilinogen 1.0 (0.2-1.0) EU/dL Ur Leukocyte Esterase Trace H (NEGATIVE) Urine RBC 0-5 (0-5) Urine WBC Semi-packed H (0-5) Ur Epithelial Cells Rare Amorphous Sediment Not seen Urine Bacteria Many Urine Mucus Moderate Result Diagrams: 02/18/20 22:47 02/18/20 22:47 Kirby Results Last 24 hrs: Microbiology 02/18/20 22:32 Gastric Occult Blood - Final Gastric Fluid Sepsis Event Note - Evaluation Sepsis Screening Result: No Definite Risk - Focused Exam Vital Signs: Vital Signs Temp Pulse Resp BP Pulse Ox 02/19/20 00:53 35.1 C L 61 13 148/79 H 90 L 02/18/20 23:46 35.7 C L 60 10 L 143/83 H 98 02/18/20 22:35 35.3 C L 62 14 178/82 H 94 L 02/18/20 22:32 35.3 C L 62 14 178/82 H 94 L Date Exam was Performed: 02/19/20 Time Exam was Performed: 01:07 - Problem List (1) Hematemesis SNOMED Code(s): 7620908 ICD Code: K92.0 - HEMATEMESIS Status: Acute Priority: High Current Visit: Yes Qualifiers: Nausea presence: with nausea Qualified Code(s): K92.0 - Hematemesis (2) Hypokalemia SNOMED Code(s): 33405236 ICD Code: E87.6 - HYPOKALEMIA Status: Acute Priority: High Current Visit: Yes (3) Nausea & vomiting SNOMED Code(s): 70253214 ICD Code: R11.2 - NAUSEA WITH VOMITING, UNSPECIFIED Status: Acute Priority: High Current Visit: Yes Qualifiers: Vomiting type: unspecified Vomiting Intractability: non-intractable Qualified Code(s): R11.2 - Nausea with vomiting, unspecified (4) UTI (urinary tract infection) SNOMED Code(s): 43550235 ICD Code: N39.0 - URINARY TRACT INFECTION, SITE NOT SPECIFIED Status: Acute Priority: High Current Visit: Yes Qualifiers: Urinary tract infection type: acute cystitis Hematuria presence: without hematuria Qualified Code(s): N30.00 - Acute cystitis without hematuria (5) Alzheimer's dementia SNOMED Code(s): 11381962 ICD Code: G30.9 - ALZHEIMER'S DISEASE, UNSPECIFIED; F02.80 - DEMENTIA IN OTH DISEASES CLASSD ELSWHR W/O BEHAVRL DISTURB Status: Chronic Priority: High Current Visit: Yes (6) Coronary artery disease SNOMED Code(s): 43425580 ICD Code: I25.10 - ATHSCL HEART DISEASE OF [place] CORONARY ARTERY W/O ANG PCTRS Status: Chronic Priority: Low Current Visit: No Problem List Initiated/Reviewed/Updated: Yes Orders Last 24hrs: Active Orders 24 hr Category Date Time Status Patient Status Manage Transfer [TRANSFER] Routine ADT 02/19/20 00:41 Active Chest 1V Frontal [CR] Stat Exams 02/18/20 22:36 Taken CULTURE URINE [RM] Stat Lab 02/19/20 00:37 Received Sodium Chloride 0.9% [Normal Saline] 1,000 ml Med 02/19/20 00:15 Active IV ASDIRECTED Resuscitation Status Routine Resus Stat 02/19/20 00:42 Ordered Medication Orders Sodium Chloride (Normal Saline) 1,000 mls @ 125 mls/hr IV ASDIRECTED ALBERTO Assessment/Plan Comment:: Assessment/Plan Comment:: ASSESSMENT AND PLAN: This is a 79 year old female from Memory Care Unit with single emesis of what the Nursing staff looked like had blood in emesis. While in ER Mrs. Mclean coughed up a single pea size chunk of blood in scant emesis. Was given Zofran and no further emesis while in ER. Labs: CBC which has a hemoglobin of 14.7. reports she can not have a blood transfusion due to multi allergies. Chemistry K+3.2, and cath. urine was positive nitrates, urine culture pending. She was given IV fluids, IV Protonix, became more alert. Hematemesis with nausea and vomiting. Hemoglobin 14.7, vital signs stable at 35.1-61-13 B/P 148/79 O2 sat 90% -IV fluids for rehydration -IV Protonix 40mg in ER and additional IV Protonix 40 mg tonight, then daily IV Protonix -labs CBC in am URINARY TRACT INFECTION-history of recurrent infections over the past several months. -Urine culture pending -Ceftriaxone 1 g IV every 24 hours pending culture results Hypokalemia, potassium 3.2 -IV Potassium 20 meq. one time -am labs BMP CORONARY ARTERY DISEASE-currently asymptomatic, history of stents x2 -continue outpatient medication Alzheimer's dementia -continue medications -monitor/alarm bed MAINTENANCE ISSUES -DVT prophylaxis; anti-embolic stocking -GI prophylaxis; PPI therapy -Bustillo catheter; not indicated -Nutrition; clear liquid diet CODE STATUS-FULL ADMISSION STATUS-this patient will be admitted to observation status, expect no more than a one night hospital stay for evaluation and management of problems as outlined above. DISPOSITION-anticipate discharge to Memory Care Unit after the hospital stay. PRIMARY CARE PROVIDER-Dr. Flores HOSPITALIST- Dr. Mendoza - Mortality Measure Prognosis:: Good
[2020-02-19] MEDS ORDERED: cefTRIAXone 1 GM in Sodium Chloride 0.9% 50 ML IV SCH ×2 (01:30→22:00)
[2020-02-19] MEDS ORDERED: Nystatin Topical Powder 15 GM Bottle TOP PRN (09:00)
[2020-02-19] MEDS ORDERED: Pantoprazole 40 MG Vial IV SCH (09:00)
[2020-02-19] MEDS ORDERED: Citalopram 20 MG Tab PO SCH (09:00)
[2020-02-19] MEDS ORDERED: Lidocaine 2% Jelly 30 ML Tube TOP PRN (09:00)
[2020-02-19] MEDS: Levothyroxine 25 MCG Tab PO SCH (09:14)
[2020-02-19] MEDS: Prenatal Multivitamin with Calcium/Folic Acid/Iron Tab PO SCH (09:16)
[2020-02-19] MEDS: Carvedilol 6.25 MG Tab PO SCH ×2 (09:16→18:15)
[2020-02-19] MEDS: Furosemide 20 MG Tab PO SCH (09:16)
[2020-02-19] MEDS: Citalopram 10 MG Tab PO SCH (09:16)
[2020-02-19] MEDS: Memantine 10 MG Tab PO SCH ×2 (09:16→20:04)
[2020-02-19] MEDS: EXEMESTANE 25 MG PO SCH (11:33)
--- NOTE | 2020-02-19 12:33 | PCM.PN ---
- General Info Date of Service: 02/19/20 Subjective Update: Ms. Mclean is a 79-year-old woman who was admitted through the emergency department early this morning with possible hematemesis. She developed some nausea vomiting at her assisted living facility and there was question of blood in the emesis. She has been stable since admission with no further vomiting or any evidence of hematemesis. Hemoglobin was within normal range on admission and has decreased mildly with hydration as would be expected. She reports that she feels fairly well this morning and denies significant discomfort. Because of her underlying cognitive impairment she is unable to provide meaningful information concerning her recent symptoms, events, or review of systems. She was felt to have probable urinary tract infection on admission and has been started on IV ceftriaxone. Urine culture is pending. - Patient Data Vitals - Most Recent: Last Vital Signs Temp 98.6 F 02/19/20 11:27 Pulse 58 L 02/19/20 11:27 Resp 16 02/19/20 11:27 BP 112/51 L 02/19/20 11:27 Pulse Ox 94 L 02/19/20 11:27 Weight - Most Recent: 166 lb 7.184 oz I&O - Last 24 Hours: Intake & Output 02/18/20 02/19/20 02/19/20 22:59 06:59 14:59 Intake Total 486 320 Balance 486 320 Lab Results Last 24 Hours: Laboratory Results - last 24 hr 02/18/20 02/18/20 02/18/20 Range/Units 22:47 22:47 23:37 WBC 9.1 (4.5-11.0) K/uL RBC 4.67 (3.30-5.50) M/uL Hgb 14.7 (12.0-15.0) g/dL Hct 44.1 (36.0-48.0) % MCV 94 (80-98) fL MCH 32 H (27-31) pg MCHC 33 (32-36) % Plt Count 283 (150-400) K/uL Neut % (Auto) (36-66) % Lymph % (Auto) (24-44) % Hendricks % (Auto) (2-6) % Eos % (Auto) (2-4) % Baso % (Auto) (0-1) % Sodium 142 (140-148) mmol/L Potassium 3.2 L (3.6-5.2) mmol/L Chloride 104 (100-108) mmol/L Carbon Dioxide 25 (21-32) mmol/L Anion Gap 16.2 H (5.0-14.0) mmol/L BUN 15 (7-18) mg/dL Creatinine 0.7 (0.6-1.0) mg/dL Est Cr Clr Drug Dosing TNP Estimated GFR (MDRD) > 60 (>60) Glucose 124 H (74-106) mg/dL Calcium 9.0 (8.5-10.1) mg/dL Troponin I < 0.017 (0.000-0.056) ng/mL Urine Color Yellow (YELLOW) Urine Appearance Cloudy A (CLEAR) Urine pH 6.0 (5.0-8.0) Ur Specific [place] >= 1.030 (1.008-1.030) Urine Protein Negative (NEGATIVE) mg/dL Urine Glucose (UA) Negative (NEGATIVE) mg/dL Urine Ketones Trace H (NEGATIVE) mg/dL Urine Occult Blood Trace-intact H (NEGATIVE) Urine Nitrite Positive H (NEGATIVE) Urine Bilirubin Negative (NEGATIVE) Urine Urobilinogen 1.0 (0.2-1.0) EU/dL Ur Leukocyte Esterase Trace H (NEGATIVE) Urine RBC 0-5 (0-5) Urine WBC Semi-packed H (0-5) Ur Epithelial Cells Rare Amorphous Sediment Not seen Urine Bacteria Many Urine Mucus Moderate 02/19/20 04 Range/Units 04:20 04:20 WBC 7.6 (4.5-11.0) K/uL RBC 4.31 (3.30-5.50) M/uL Hgb 13.2 (12.0-15.0) g/dL Hct 41.2 (36.0-48.0) % MCV 96 (80-98) fL MCH 31 (27-31) pg MCHC 32 (32-36) % Plt Count 272 (150-400) K/uL Neut % (Auto) 70 H (36-66) % Lymph % (Auto) 23 L (24-44) % Hendricks % (Auto) 7 H (2-6) % Eos % (Auto) 0 L (2-4) % Baso % (Auto) 0 (0-1) % Sodium 143 (140-148) mmol/L Potassium 4.4 (3.6-5.2) mmol/L Chloride 107 (100-108) mmol/L Carbon Dioxide 26 (21-32) mmol/L Anion Gap 9.7 (5.0-14.0) mmol/L BUN 13 (7-18) mg/dL Creatinine 0.8 (0.6-1.0) mg/dL Est Cr Clr Drug Dosing 50.85 Estimated GFR (MDRD) > 60 (>60) Glucose 118 H (74-106) mg/dL Calcium 8.6 (8.5-10.1) mg/dL Troponin I (0.000-0.056) ng/mL Urine Color (YELLOW) Urine Appearance (CLEAR) Urine pH (5.0-8.0) Ur Specific [place] (1.008-1.030) Urine Protein (NEGATIVE) mg/dL Urine Glucose (UA) (NEGATIVE) mg/dL Urine Ketones (NEGATIVE) mg/dL Urine Occult Blood (NEGATIVE) Urine Nitrite (NEGATIVE) Urine Bilirubin (NEGATIVE) Urine Urobilinogen (0.2-1.0) EU/dL Ur Leukocyte Esterase (NEGATIVE) Urine RBC (0-5) Urine WBC (0-5) Ur Epithelial Cells Amorphous Sediment Urine Bacteria Urine Mucus Kirby Results Last 24 Hours: Microbiology 02/18/20 22:32 Gastric Occult Blood - Final Gastric Fluid Med Orders - Current: Current Medications Acetaminophen (Tylenol) 650 mg PO Q4H PRN PRN Reason: Pain (Mild 1-3)/fever Albuterol (Proventil Neb Soln) 2.5 mg NEB Q4H PRN PRN Reason: Shortness Of Breath/wheezing Amitriptyline HCl (Elavil) 25 mg PO BEDTIME ALBERTO Bisacodyl (Dulcolax) 5 mg PO DAILY PRN PRN Reason: Constipation Carvedilol (Coreg) 6.25 mg PO BIDMEALS [facility] Last Admin: 02/19/20 09:16 Dose: 6.25 mg Citalopram Hydrobromide (Celexa) 10 mg PO DAILY [facility] Last Admin: 02/19/20 09:16 Dose: 10 mg Docusate Sodium (Colace) 100 mg PO BID PRN PRN Reason: Constipation Donepezil HCl (Aricept) 20 mg PO BEDTIME ALBERTO Furosemide (Lasix) 20 mg PO DAILY [facility] Last Admin: 02/19/20 09:16 Dose: 20 mg Ceftriaxone Sodium 1 gm/ (Sodium Chloride) 50 mls @ 100 mls/hr IV Q24H [facility] Levothyroxine Sodium (Levothyroxine) 75 mcg PO ACBRK [facility] Last Admin: 02/19/20 09:14 Dose: 75 mcg Lidocaine HCl (Xylocaine 2% Jelly) 0 ml TOP 6XDAY PRN PRN Reason: Pain Melatonin (Melatonin) 6 mg PO BEDTIME PRN PRN Reason: Insomnia Memantine (Namenda) 10 mg PO BID [facility] Last Admin: 02/19/20 09:16 Dose: 10 mg Exemestane 25 Mg (Ptom) 0 mg PO DAILY [facility] Last Admin: 02/19/20 11:33 Dose: Not Given Nystatin (Nystop) 0 gm TOP DAILY PRN PRN Reason: * Ondansetron HCl (Zofran Odt) 4 mg PO Q6H PRN PRN Reason: Nausea able to take PO Oxycodone HCl (Oxycodone) 5 mg PO Q4H PRN PRN Reason: Pain (moderate 4-6) Pantoprazole Sodium (Protonix) 40 mg PO BIDAC [facility] Prenat Multivit/Telecommunications Network Engineer/Iron/Folic Ac ( Plus Iron) 1 each PO DAILY [facility] Last Admin: 02/19/20 09:16 Dose: 1 each Rivastigmine (Exelon) 4.5 mg PO BIDMEALS [facility] Last Admin: 02/19/20 09:15 Dose: 4.5 mg Senna (Senna) 8.6 mg PO DAILY PRN PRN Reason: Constipation Temazepam (Restoril) 15 mg PO BEDTIME PRN PRN Reason: Sleep Discontinued Medications Al Hydroxide/Mg Hydroxide (Mag-Al Plus) 30 ml PO ONETIME ONE Stop: 02/19/20 00:39 Last Admin: 02/19/20 00:44 Dose: Not Given Lactated Ringer's (Ringers, Lactated) 1,000 mls @ 1,000 mls/hr IV BOLUS ONE Stop: 02/18/20 23:35 Last Admin: 02/18/20 23:16 Dose: 1,000 mls/hr Sodium Chloride (Normal Saline) 1,000 mls @ 125 mls/hr IV ASDIRECTED [facility] Last Admin: 02/19/20 09:14 Dose: 125 mls/hr Ceftriaxone Sodium 1 gm/ (Sodium Chloride) 50 mls @ 100 mls/hr IV Q24H [facility] Last Admin: 02/19/20 01:47 Dose: 100 mls/hr Potassium Chloride 20 meq/ (Premix) 100 mls @ 50 mls/hr IV ONETIME ONE Stop: 02/19/20 03:06 Last Admin: 02/19/20 02:34 Dose: 50 mls/hr Lidocaine HCl (Xylocaine-Mpf 1%) 4 ml INJECT ONETIME ONE Stop: 02/19/20 01:08 Last Admin: 02/19/20 02:34 Dose: 4 ml Lorazepam (Ativan) 1 mg IV Q6H PRN PRN Reason: Nausea/Vomiting Morphine Sulfate (Morphine) 2 mg IVPUSH Q2H PRN PRN Reason: Pain (severe 7-10) Ondansetron HCl (Zofran) 4 mg IVPUSH ONETIME ONE Stop: 02/18/20 22:36 Last Admin: 02/18/20 23:17 Dose: 4 mg Pantoprazole Sodium (Protonix Iv) 40 mg IVPUSH ONETIME ONE Stop: 02/18/20 22:52 Last Admin: 02/18/20 23:07 Dose: 40 mg Pantoprazole Sodium (Protonix Iv) 40 mg IV DAILY [facility] Last Admin: 02/19/20 09:19 Dose: 40 mg - Exam Quality Assessment: DVT Prophylaxis General: Alert, Cooperative, No Acute Distress. No: Oriented Lungs: Clear to Auscultation, Normal Respiratory Effort Cardiovascular: Regular Rate, Regular Rhythm, No Murmurs GI/Abdominal Exam: Soft, Non-Tender, No Organomegaly, No Distention Extremities: Non-Tender, No Pedal Edema Sepsis Event Note - Evaluation Sepsis Screening Result: No Definite Risk - Focused Exam Vital Signs: Vital Signs Temp Pulse Pulse Resp BP BP Pulse Ox 02/19/20 11:27 98.6 F 58 L 16 112/51 L 94 L 02/19/20 09:16 75 137/90 02/19/20 07:54 96 02/19/20 07:00 98.4 F 75 16 151/79 H 95 02/19/20 03:00 97.7 F 74 16 146/78 H 93 L 02/19/20 02:00 94 L 02/19/20 01:07 97.4 F 57 L 16 148/56 H 93 L 02/19/20 00:53 95.2 F L 61 13 148/79 H 90 L Pulse Ox 02/19/20 11:27 02/19/20 09:16 02/19/20 07:54 02/19/20 07:00 02/19/20 03:00 02/19/20 02:00 94 L 02/19/20 01:07 02/19/20 00:53 Date Exam was Performed: 02/19/20 Time Exam was Performed: 12:28 - Problem List Review Problem List Initiated/Reviewed/Updated: Yes - My Orders Last 24 Hours: My Active Orders 02/19/20 09:11 Consult to Physical Therapy [PT Evaluation and Treatment] [CONS] Routine 02/19/20 11:55 Convert IV to Saline Lock [OM.PC] Routine 02/19/20 11:56 Discontinue Telemetry Monitoring [Cardiac Monitoring Discontinue] [RC] Click to Edit 02/19/20 16:30 Pantoprazole [ProTONIX] 40 mg PO BIDAC 02/19/20 17:00 HGB [HEMOGLOBIN] [HEME] Stat 02/19/20 Lunch Soft Diet [DIET] 02/20/20 05:11 HGB [HEMOGLOBIN] [HEME] AM - Plan Plan:: Possible hematemesis with nausea and vomiting-no evidence of significant GI bleed since admission, hemoglobin decreased modestly as would be expected with hydration -Saline lock IV -Follow-up hemoglobin this afternoon and in a.m. -Protonix 40 mg p.o. twice daily URINARY TRACT INFECTION-history of recurrent infections over the past several months. -Urine culture pending -Ceftriaxone 1 g IV every 24 hours pending culture results Hypokalemia-resolved CORONARY ARTERY DISEASE-currently asymptomatic, history of stents x2 -continue outpatient medication Alzheimer's dementia -continue medications -monitor/alarm bed MAINTENANCE ISSUES -DVT prophylaxis; anti-embolic stocking -GI prophylaxis; PPI therapy -Bustillo catheter; not indicated -Nutrition; clear liquid diet CODE STATUS-FULL ADMISSION STATUS-this patient will be admitted to observation status, expect no more than a one night hospital stay for evaluation and management of problems as outlined above. DISPOSITION-anticipate discharge to Memory Care Unit after the hospital stay. PRIMARY CARE PROVIDER-Dr. Flores HOSPITALIST- Dr. Mendoza
--- NOTE | 2020-02-19 14:15 | CR ---
CHEST: Portable 02/18/2020 at 11:00 PM CLINICAL HISTORY:Vomiting and mild hypoxia COMPARISON:January 2019 FINDINGS: There is less than optimal inspiration. This exaggerates the basal lung markings. The heart size, pulmonary vascularity and hilar structures are normal. No infiltrate effusion or pneumothorax is seen.There are atherosclerotic changes in the aorta. IMPRESSION: Less than optimal study due to poor inspiration. Basilar lung markings are exaggerated. No acute cardiopulmonary process. If clinical symptomatology persists a upright two-view chest would be helpful when patient's condition allows
[2020-02-19] MEDS: Lactobacillus Rhamnosus GG (Probiotic) Cap PO SCH ×2 (14:47→20:04)
[2020-02-19] MEDS: Acetaminophen 325 MG Tab PO PRN (16:10)
[2020-02-19] MEDS: Pantoprazole 40 MG Tab.CR PO SCH (16:30)
[2020-02-19] MEDS ORDERED: Donepezil 10 MG Tab PO SCH (21:00)
[2020-02-19] MEDS ORDERED: Amitriptyline 25 MG Tab PO SCH (21:00)
[2020-02-20] MEDS: Pantoprazole 40 MG Tab.CR PO SCH (08:26)
[2020-02-20] MEDS: Levothyroxine 25 MCG Tab PO SCH (08:26)
[2020-02-20] MEDS: Citalopram 10 MG Tab PO SCH (08:28)
[2020-02-20] MEDS: Prenatal Multivitamin with Calcium/Folic Acid/Iron Tab PO SCH (08:28)
[2020-02-20] MEDS: Memantine 10 MG Tab PO SCH (08:28)
[2020-02-20] MEDS: Furosemide 20 MG Tab PO SCH (08:28)
[2020-02-20] MEDS: Lactobacillus Rhamnosus GG (Probiotic) Cap PO SCH (08:28)
[2020-02-20] MEDS: EXEMESTANE 25 MG PO SCH (08:29)
[2020-02-20] MEDS: Carvedilol 6.25 MG Tab PO SCH (08:29)
[2020-02-20 08:30] VITALS: BP 157/77; PULSE 69
[2020-02-20] MEDS: Acetaminophen 325 MG Tab PO PRN (08:32)
--- NOTE | 2020-02-20 09:31 | PCM.DCSUM1 ---
Discharge Summary - Hospital Course Brief History: Ms. Mclean is a 79-year-old woman who was admitted through the emergency department with nausea vomiting and possible hematemesis. - Discharge Data Discharge Date: 02/20/20 Discharge Disposition: Home, Self-Care 01 Condition: Fair - Referral to Home Health Primary Care Physician: PCP None - Discharge Diagnosis/Problem(s) (1) Hypokalemia SNOMED Code(s): 37771709 ICD Code: E87.6 - HYPOKALEMIA Status: Acute Priority: High Current Visit: Yes (2) UTI (urinary tract infection) SNOMED Code(s): 70962622 ICD Code: N39.0 - URINARY TRACT INFECTION, SITE NOT SPECIFIED Status: Acute Priority: High Current Visit: Yes Qualifiers: Urinary tract infection type: acute cystitis Hematuria presence: without hematuria Qualified Code(s): N30.00 - Acute cystitis without hematuria (3) Nausea & vomiting SNOMED Code(s): 93231723 ICD Code: R11.2 - NAUSEA WITH VOMITING, UNSPECIFIED Status: Acute Priority: High Current Visit: Yes Qualifiers: Vomiting type: unspecified Vomiting Intractability: non-intractable Qualified Code(s): R11.2 - Nausea with vomiting, unspecified (4) Alzheimer's dementia SNOMED Code(s): 28273592 ICD Code: G30.9 - ALZHEIMER'S DISEASE, UNSPECIFIED; F02.80 - DEMENTIA IN OTH DISEASES CLASSD ELSWHR W/O BEHAVRL DISTURB Status: Chronic Priority: High Current Visit: Yes - Patient Summary/Data Consults: Consultations 02/19/20 09:11 Consult to Physical Therapy [PT Evaluation and Treatment] [CONS] Routine Please Evaluate and Treat. PT Reason for Consult: Strengthening This query below is only for informational purposes and is not editable. Admission Diagnosis/Problem: Gastrointestinal hemorrhage Hospital Course: Ms. Mclean is a 79-year-old woman who was admitted through the emergency department with nausea and vomiting and possible hematemesis. She developed some nausea vomiting at her assisted living facility and there was question of blood in the emesis. In the emergency department gastric fluid was checked for blood and found to be negative. She has been stable since admission with no further vomiting or any evidence of hematemesis. Hemoglobin was within normal range on admission and has decreased mildly with hydration as would be expected. Because of her underlying cognitive impairment she is unable to provide meaningful information concerning her recent symptoms, events, or review of systems. She was felt to have probable urinary tract infection on admission and has been started on IV ceftriaxone. Urine culture was obtained at the time of admission, at the time of discharge was growing gram-negative rods, final ID and sensitivities pending. She will be transitioned to oral cephalexin for an additional few days at the [facility]. Further hemoglobin levels remained stable with no further evidence of active bleeding, for this reason EGD was not performed. She will be discharged back to assisted living on Protonix 40 mg twice daily for 2 weeks and then once daily thereafter. Activity will be as tolerated and she will resume her usual diet. - Patient Instructions Diet: Usual Diet as Tolerated Activity: As Tolerated - Discharge Plan *PRESCRIPTION DRUG MONITORING PROGRAM REVIEWED*: Not Applicable *COPY OF PRESCRIPTION DRUG MONITORING REPORT IN PATIENT LUIS FERNANDO: Not Applicable Prescriptions/Med Rec: Cephalexin [Keflex] 500 mg PO Q8H #9 capsule Lactobacillus Rhamnosus GG [Culturelle] 1 cap PO BID #60 cap Pantoprazole [ProTONIX] 40 mg PO BIDAC #30 tab.cr Home Medications: Home Meds Levothyroxine [Synthroid] 75 mcg PO ACBRK 06/15/14 [History] Memantine HCl [Namenda] 28 mg PO DAILY 06/15/14 [History] Aspirin [Halfprin] 81 mg PO DAILY 07/23/14 [History] atorvaSTATin [Lipitor] 40 mg PO BEDTIME 02/11/15 [History] Citalopram [Citalopram HBr] 10 mg PO DAILY 08/19/15 [History] Exemestane [Aromasin] 25 mg PO DAILY 09/26/18 [History] Multivit,Tx with Iron,Minerals [Therems-M] 1 tab PO DAILY 09/26/18 [History] Acetaminophen [Tylenol] 650 mg PO TID 12/07/18 [History] Amitriptyline [Elavil] 25 mg PO BEDTIME 11/01/19 [History] Furosemide 20 mg PO DAILY 11/01/19 [History] Loratadine [Claritin] 10 mg PO DAILY 11/01/19 [History] Rivastigmine Tartrate [Rivastigmine] 4.5 mg PO BID 11/01/19 [History] Sennosides [Senna] 8.6 mg PO DAILY PRN 11/01/19 [History] carvediloL [Carvedilol] 6.25 mg PO BID 11/01/19 [History] Donepezil HCl [Aricept] 1 tab PO BEDTIME 02/18/20 [History] 147/Iron/Folic Acid [Azesco Tablet] 1 tab PO DAILY 02/18/20 [History] Triamcinolone Acetonide [Triamcinolone Acetonide 0.1% Crm] 1 dose TOP BID [History] Cephalexin [Keflex] 500 mg PO Q8H #9 capsule 02/19/20 [Rx] Lactobacillus Rhamnosus GG [Culturelle] 1 cap PO BID #60 cap 02/19/20 [Rx] Lidocaine HCl [Aspercreme Lidocaine] 1 dose TOP ASDIRECTED PRN 02/19/20 [History ] Nystatin 1 dose TOP DAILY PRN 02/19/20 [History] Pantoprazole [ProTONIX] 40 mg PO BIDAC #30 tab.cr 02/19/20 [Rx] Referrals: Grant Flores MD [Physician] - - Discharge Summary/Plan Comment DC Time >30 min.: No - Patient Data Vitals - Most Recent: Last Vital Signs Temp 97.6 F 02/20/20 08:29 Pulse 69 02/20/20 08:29 Resp 14 02/20/20 08:29 BP 157/77 H 02/20/20 08:29 Pulse Ox 91 L 02/20/20 08:29 Weight - Most Recent: 166 lb 7.184 oz I&O - Last 24 hours: Intake & Output 02/19/20 02/20/20 02/20/20 22:59 06:59 14:59 Intake Total 50 Output Total 350 Balance -300 Lab Results - Last 24 hrs: Laboratory Results - last 24 hr 02/19/20 02/20/20 Range/Units 16:59 04:11 Hgb 12.9 12.6 (12.0-15.0) g/dL NANCY Results - Last 24 hrs: Microbiology 02/19/20 00:37 Urine Culture - Preliminary Urine, Catheterized Med Orders - Current: Current Medications Acetaminophen (Tylenol) 650 mg PO Q4H PRN PRN Reason: Pain (Mild 1-3)/fever Last Admin: 02/20/20 08:32 Dose: 650 mg Albuterol (Proventil Neb Soln) 2.5 mg NEB Q4H PRN PRN Reason: Shortness Of Breath/wheezing Amitriptyline HCl (Elavil) 25 mg PO BEDTIME [facility] Last Admin: 02/19/20 20:04 Dose: 25 mg Bisacodyl (Dulcolax) 5 mg PO DAILY PRN PRN Reason: Constipation Carvedilol (Coreg) 6.25 mg PO BIDMEALS [facility] Last Admin: 02/20/20 08:29 Dose: 6.25 mg Citalopram Hydrobromide (Celexa) 10 mg PO DAILY [facility] Last Admin: 02/20/20 08:28 Dose: 10 mg Docusate Sodium (Colace) 100 mg PO BID PRN PRN Reason: Constipation Donepezil HCl (Aricept) 20 mg PO BEDTIME [facility] Last Admin: 02/19/20 20:04 Dose: 20 mg Furosemide (Lasix) 20 mg PO DAILY [facility] Last Admin: 02/20/20 08:28 Dose: 20 mg Ceftriaxone Sodium 1 gm/ (Sodium Chloride) 50 mls @ 100 mls/hr IV Q24H [facility] Last Admin: 02/19/20 21:22 Dose: 100 mls/hr Lactobacillus Rhamnosus (Culturelle) 1 cap PO BID [facility] Last Admin: 02/20/20 08:28 Dose: 1 cap Levothyroxine Sodium (Levothyroxine) 75 mcg PO ACBRK [facility] Last Admin: 02/20/20 08:26 Dose: 75 mcg Lidocaine HCl (Xylocaine 2% Jelly) 0 ml TOP 6XDAY PRN PRN Reason: Pain Melatonin (Melatonin) 6 mg PO BEDTIME PRN PRN Reason: Insomnia Memantine (Namenda) 10 mg PO BID [facility] Last Admin: 02/20/20 08:28 Dose: 10 mg Exemestane 25 Mg (Ptom) 0 mg PO DAILY [facility] Last Admin: 02/20/20 08:29 Dose: Not Given Nystatin (Nystop) 0 gm TOP DAILY PRN PRN Reason: * Ondansetron HCl (Zofran Odt) 4 mg PO Q6H PRN PRN Reason: Nausea able to take PO Oxycodone HCl (Oxycodone) 5 mg PO Q4H PRN PRN Reason: Pain (moderate 4-6) Pantoprazole Sodium (Protonix) 40 mg PO BIDAC [facility] Last Admin: 02/20/20 08:26 Dose: 40 mg Prenat Multivit/Dodge/Iron/Folic Ac ( Plus Iron) 1 each PO DAILY [facility] Last Admin: 02/20/20 08:28 Dose: 1 each Rivastigmine (Exelon) 4.5 mg PO BIDMEALS [facility] Last Admin: 02/20/20 08:28 Dose: 4.5 mg Senna (Senna) 8.6 mg PO DAILY PRN PRN Reason: Constipation Temazepam (Restoril) 15 mg PO BEDTIME PRN PRN Reason: Sleep Discontinued Medications Al Hydroxide/Mg Hydroxide (Mag-Al Plus) 30 ml PO ONETIME ONE Stop: 02/19/20 00:39 Last Admin: 02/19/20 00:44 Dose: Not Given Lactated Ringer's (Ringers, Lactated) 1,000 mls @ 1,000 mls/hr IV BOLUS ONE Stop: 02/18/20 23:35 Last Admin: 02/18/20 23:16 Dose: 1,000 mls/hr Sodium Chloride (Normal Saline) 1,000 mls @ 125 mls/hr IV ASDIRECTED [facility] Last Admin: 02/19/20 09:14 Dose: 125 mls/hr Ceftriaxone Sodium 1 gm/ (Sodium Chloride) 50 mls @ 100 mls/hr IV Q24H [facility] Last Admin: 02/19/20 01:47 Dose: 100 mls/hr Potassium Chloride 20 meq/ (Premix) 100 mls @ 50 mls/hr IV ONETIME ONE Stop: 02/19/20 03:06 Last Admin: 02/19/20 02:34 Dose: 50 mls/hr Lidocaine HCl (Xylocaine-Mpf 1%) 4 ml INJECT ONETIME ONE Stop: 02/19/20 01:08 Last Admin: 02/19/20 02:34 Dose: 4 ml Lorazepam (Ativan) 1 mg IV Q6H PRN PRN Reason: Nausea/Vomiting Morphine Sulfate (Morphine) 2 mg IVPUSH Q2H PRN PRN Reason: Pain (severe 7-10) Ondansetron HCl (Zofran) 4 mg IVPUSH ONETIME ONE Stop: 02/18/20 22:36 Last Admin: 02/18/20 23:17 Dose: 4 mg Pantoprazole Sodium (Protonix Iv) 40 mg IVPUSH ONETIME ONE Stop: 02/18/20 22:52 Last Admin: 02/18/20 23:07 Dose: 40 mg Pantoprazole Sodium (Protonix Iv) 40 mg IV DAILY [facility] Last Admin: 02/19/20 09:19 Dose: 40 mg - Exam General: Reports: Alert, Cooperative, No Acute Distress. Denies: Oriented Lungs: Reports: Clear to Auscultation, Normal Respiratory Effort Cardiovascular: Reports: Regular Rate, Regular Rhythm, No Murmurs GI/Abdominal Exam: Soft, Non-Tender, No Organomegaly, No Distention Extremities: Non-Tender, No Pedal Edema
== END 2020-02-20 11:09 | disposition home or self-care (01) ==
LOC: JP.ED 22:21 → JP.MS 02-19 00:41
PROVIDERS: ADMIT Hospitalist; ATTEND Hospitalist
DX: R11.2 Nausea with vomiting, unspecified (principal); E87.6 Hypokalemia; N30.00 Acute cystitis without hematuria; G30.9 Alzheimer's disease, unspecified; F02.80 Dementia in other diseases classified elsewhere, unspecified severity, without behavioral disturbance, psychotic disturbance, mood disturbance, and anxiety; E03.9 Hypothyroidism, unspecified; F41.9 Anxiety disorder, unspecified; F32.9 Major depressive disorder, single episode, unspecified; I25.10 Atherosclerotic heart disease of native coronary artery without angina pectoris; E78.00 Pure hypercholesterolemia, unspecified; Z79.899 Other long term (current) drug therapy; Z79.890 Hormone replacement therapy; Z79.82 Long term (current) use of aspirin; Z87.440 Personal history of urinary (tract) infections
CPT/HCPCS: 36415; 71045; 80048; 81001; 82271; 84484; 85018; 85025; 85027; 87086; 87088; 87186; 96361; 96365; 96375; 96376; 97161; 99284; 99285; A9270; C9113; G0378; J0696; J2001; J2405; J3480; J7030; J7050; J7120; 96374

== ENCOUNTER 2020-05-15 12:02 | Emergency (ER) | payer MEDICARE, MEDICAID ==
--- NOTE | 2020-05-15 13:28 | EDM.PDOC ---
ED HPI GENERAL MEDICAL PROBLEM - General Chief Complaint: General Stated Complaint: FALL SENT FROM [facility] Time Seen by Provider: 05/15/20 12:20 Source of Information: Reports: EMS, [facility] Records, RN, RN Notes Reviewed History Limitations: Reports: Other (confused with a history of dementia.) - History of Present Illness INITIAL COMMENTS - FREE TEXT/NARRATIVE: She has a history of alzheimer's dementia and is a resident at a local group home. She was found on the floor this morning and the [facility] staff wanted an emergency screening exam. She has no new complaints. She complains of back pain, however she has a history of chronic back problems. - Related Data Allergies Allergy/AdvReac Type Severity Reaction Status Date / Time No Known Allergies Allergy Verified 01/25/20 20:26 Home Meds: Home Meds Levothyroxine [Synthroid] 75 mcg PO ACBRK 06/15/14 [History] Memantine HCl [Namenda] 28 mg PO DAILY 06/15/14 [History] Aspirin [Halfprin] 81 mg PO DAILY 07/23/14 [History] atorvaSTATin [Lipitor] 40 mg PO BEDTIME 02/11/15 [History] Citalopram [Citalopram HBr] 10 mg PO DAILY 08/19/15 [History] Exemestane [Aromasin] 25 mg PO DAILY 09/26/18 [History] Multivit,Tx with Iron,Minerals [Therems-M] 1 tab PO DAILY 09/26/18 [History] Acetaminophen [Tylenol] 650 mg PO TID 12/07/18 [History] Amitriptyline [Elavil] 25 mg PO BEDTIME 11/01/19 [History] Furosemide 20 mg PO DAILY 11/01/19 [History] Loratadine [Claritin] 10 mg PO DAILY 11/01/19 [History] Rivastigmine Tartrate [Rivastigmine] 4.5 mg PO BID 11/01/19 [History] Sennosides [Senna] 8.6 mg PO DAILY PRN 11/01/19 [History] carvediloL [Carvedilol] 6.25 mg PO BID 11/01/19 [History] Donepezil HCl [Aricept] 1 tab PO BEDTIME 02/18/20 [History] 147/Iron/Folic Acid [Azesco Tablet] 1 tab PO DAILY 02/18/20 [History] Triamcinolone Acetonide [Triamcinolone Acetonide 0.1% Crm] 1 dose TOP BID 02/18/20 [History] Lactobacillus Rhamnosus GG [Culturelle] 1 cap PO BID #60 cap 02/19/20 [Rx] Nystatin 1 dose TOP DAILY PRN 02/19/20 [History] Pantoprazole [ProTONIX] 40 mg PO BIDAC #30 tab.cr 02/19/20 [Rx] cephALEXin [Keflex] 500 mg PO Q8H #9 capsule 02/19/20 [Rx] lidocaine HCL [Aspercreme Lidocaine] 1 dose TOP ASDIRECTED PRN 02/19/20 [History] Past Medical History HEENT History: Reports: Cataract, Impaired Vision Other HEENT History: macular edema Cardiovascular History: Reports: CAD, High Cholesterol, VA, Stents, Syncope Respiratory History: Reports: Bronchitis, Recurrent, COPD, SOB Other Respiratory History: lung nodules Gastrointestinal History: Reports: Bowel Obstruction, Diverticulosis, Gastritis, GI Bleed, PUD Genitourinary History: Reports: UTI, Recurrent REHAB TRAINER History: Reports: , Other (See Below) Other REHAB TRAINER History: breast lumpectomy Musculoskeletal History: Reports: Back Pain, Chronic, Fracture, Fibromyalgia Neurological History: Reports: Alzheimers Disease, Seizure Other Neuro History: dementia Psychiatric History: Reports: Alzheimers Disease, Anxiety, Dementia, Depression, Suicide Attempt, Suicidal Ideation Other Psychiatric History: Dementia Endocrine/Metabolic History: Reports: Hypothyroidism, Other (See Below) Other Endocrine/Metabolic History: thyroid disease Hematologic History: Reports: Blood Transfusion(s), Other (See Below) Other Hematologic History: Serum antibody Anti-D Immunologic History: Reports: None Oncologic (Cancer) History: Reports: Breast Dermatologic History: Reports: Eczema - Infectious Disease History Infectious Disease History: Reports: Chicken Pox, Measles, Mumps Other Infectious Disease History: polio - Past Surgical History Head Surgeries/Procedures: Reports: None HEENT Surgical History: Reports: Cataract Surgery, Eye Surgery, Laser Surgery Cardiovascular Surgical History: Reports: Coronary Artery Stent, Vascular Surgery GI Surgical History: Reports: Colonoscopy, EGD, Hernia Repair/Other, Small Bowel, Other (See Below) Other GI Surgeries/Procedures: three bleeding ulcers 10/2017 Female Surgical History: Reports: Breast Biopsy, Mastectomy, Tubal Ligation, Other (See Below) Other Female Surgeries/Procedures: left side mastectomy Musculoskeletal Surgical History: Reports: Carpal Tunnel, Other (See Below) Other Musculoskeletal Surgeries/Procedures:: ring finger surgery Oncologic Surgical History: Reports: Lumpectomy, Mastectomy, Other (See Below) Other Oncologic Surgeries/Procedures: Left breast Social & Family History - Family History Family Medical History: Unobtainable - Tobacco Use Smoking Status *Q: Unknown Ever Smoked - Caffeine Use Caffeine Use: Reports: Tea - Recreational Drug Use Recreational Drug Use: No - Living Situation & Occupation Living situation: Reports: , Extended Care Facility Occupation: Disabled (lives at [facility] for 3 years, lives [place] of [place] at [facility], has 3 Daughters all live in [place].) ED ROS GENERAL - Review of Systems Review Of Systems: See Below Reason Not Obtained: She has a history of confusion and Alzheimer's Dementia ED EXAM, GENERAL - Physical Exam Exam: See Below Exam Limited By: Other (confusion) General Appearance: Alert, WD/WN, No Apparent Distress Eye Exam: Bilateral Eye: Abnormal Pupil (pupils are small but symmetric. They react to light.) Ears: Normal External Exam Nose: Normal Inspection Head: Atraumatic, Normocephalic Neck: Normal Inspection, Supple, Non-Tender Respiratory/Chest: No Respiratory Distress, Lungs Clear Cardiovascular: Regular Rate, Rhythm GI/Abdominal: Normal Bowel Sounds, Soft, Non-Tender Extremities: Normal Inspection, Normal Range of Motion, Non-Tender Neurological: Alert, Disoriented, Memory Loss Recent Events. No: Sensory/Motor Deficit Psychiatric: Normal Affect Skin Exam: Warm, Dry Course - Vital Signs Text/Narrative:: This patient has a history of dementia at baseline. She was sent to the [facility] by [facility] staff for an emergency screening exam. Her vital signs are stable and primary exam is unremarkable. Her secondary exam reveals no pain and full range of motion of all extremities. Her neck was supple and non-tender. Her abdomen was soft. Her chest was non-tender and pelvis was non-painful on palpation and rocking back and forth. She has a history of chronic back pain but has no new abnormal findings. She will be transferred back to the [facility] with no new orders or prescriptions. Her vital signs included an inital low blood pressure, but it was very transient and she remained normotensive during the rest of her ER stay. She will follow up with your doctor as needed for problems. Return to the ER as needed. Last Recorded V/S: Last Vital Signs Temp 35.5 C L 05/15/20 12:25 Pulse 44 L 05/15/20 13:45 Resp 12 05/15/20 13:45 BP 114/67 05/15/20 13:45 Pulse Ox 98 05/15/20 13:45 Departure - Departure Time of Disposition: 14:40 Disposition: DC/Tfer to SNF 03 Condition: Good Clinical Impression: Falls frequently - Discharge Information *PRESCRIPTION DRUG MONITORING PROGRAM REVIEWED*: No *COPY OF PRESCRIPTION DRUG MONITORING REPORT IN PATIENT LUIS FERNANDO: No Referrals: PCP,None [Primary Care Provider] - Forms: ED Department Discharge Additional Instructions: Follow up with your primary care provider in the near future if you have problems or concerns. Return to the ER as needed. Continue all your current medications. Sepsis Event Note (ED) - Evaluation Sepsis Screening Result: No Definite Risk - Focused Exam Vital Signs: Vital Signs Temp Pulse Resp BP Pulse Ox 05/15/20 13:45 44 L 12 114/67 98 05/15/20 13:36 73 15 93/51 L 98 05/15/20 12:25 35.5 C L 50 L 16 91/48 L 95
[2020-05-15 13:46] VITALS: BP 114/67; PULSE 44
== END 2020-05-15 14:56 ==
LOC: JP.ED 12:02
DX: R29.6 Repeated falls (principal); I25.2 Old myocardial infarction; E78.00 Pure hypercholesterolemia, unspecified; I25.10 Atherosclerotic heart disease of native coronary artery without angina pectoris; Z95.5 Presence of coronary angioplasty implant and graft; E03.9 Hypothyroidism, unspecified; F41.9 Anxiety disorder, unspecified; F32.9 Major depressive disorder, single episode, unspecified; G30.9 Alzheimer's disease, unspecified; F02.80 Dementia in other diseases classified elsewhere, unspecified severity, without behavioral disturbance, psychotic disturbance, mood disturbance, and anxiety; J44.9 Chronic obstructive pulmonary disease, unspecified; Z79.82 Long term (current) use of aspirin; Z79.899 Other long term (current) drug therapy
CPT/HCPCS: 99283

== ENCOUNTER 2020-05-18 08:38 | Inpatient (IN) | payer MEDICARE, MEDICAID ==
[2020-05-18] MEDS ORDERED: Norepinephrine 4 MG in Dextrose 5% in Water 246 ML IV SCH ×2 (09:00)
[2020-05-18] MEDS ORDERED: Sodium Chloride 0.9% 1,000 ML IV ONE (09:01)
[2020-05-18] MEDS ORDERED: Piperacillin/Tazobactam 4.5 GM in Sodium Chloride 0.9% 100 ML IV ONE (09:01)
[2020-05-18] MEDS ORDERED: Sodium Chloride 0.9% 10 ML Syringe FLUSH PRN (09:01)
--- NOTE | 2020-05-18 09:13 | EDM.PDOC ---
ED HPI GENERAL MEDICAL PROBLEM - General Chief Complaint: Cardiovascular Problem Stated Complaint: FROM OUTPATIENT Time Seen by Provider: 05/18/20 08:45 - History of Present Illness INITIAL COMMENTS - FREE TEXT/NARRATIVE: This is a 80 yo who presents from the surgical per-op area for hypotension. History is limited due to dementia/AMS and partially provided by her significant other. She had repeat blood pressures with systolics in the 50s on manual check in the pre-op area. The patient is here to have an epidural steroid injection. She has been concerned of worsening back pain for several weeks. Her significant other reports increased falls, which the prison has attributed to her back pain. The patient is concerned of back and abdominal pain. She denies fevers, N/V, diarrhea, SOB. She was seen in the ED for fall 3 days ago, noted to have borderline BP at this time. She is noted to be on carvedilol. She has a history of breast CA, multiple abdominal surgeries, and CAD w/ stent placement. Back Pain Score (Numeric/FACES): 10 - Related Data Allergies Allergy/AdvReac Type Severity Reaction Status Date / Time No Known Allergies Allergy Verified 01/25/20 20:26 Home Meds: Home Meds Levothyroxine [Synthroid] 75 mcg PO ACBRK 06/15/14 [History] Memantine HCl [Namenda] 28 mg PO DAILY 06/15/14 [History] Aspirin [Halfprin] 81 mg PO DAILY 07/23/14 [History] atorvaSTATin [Lipitor] 40 mg PO BEDTIME 02/11/15 [History] Citalopram [Citalopram HBr] 10 mg PO BEDTIME 08/19/15 [History] Exemestane [Aromasin] 25 mg PO DAILY 09/26/18 [History] Multivit,Tx with Iron,Minerals [Therems-M] 1 tab PO DAILY 09/26/18 [History] Acetaminophen [Tylenol] 650 mg PO TID 12/07/18 [History] Amitriptyline [Elavil] 25 mg PO BEDTIME 11/01/19 [History] Furosemide 20 mg PO DAILY 11/01/19 [History] Loratadine [Claritin] 10 mg PO DAILY 11/01/19 [History] Rivastigmine Tartrate [Rivastigmine] 4.5 mg PO BID 11/01/19 [History] Sennosides [Senna] 8.6 mg PO DAILY PRN 11/01/19 [History] carvediloL [Carvedilol] 6.25 mg PO BID 11/01/19 [History] Donepezil HCl [Aricept] 1 tab PO BEDTIME 02/18/20 [History] Triamcinolone Acetonide [Triamcinolone Acetonide 0.1% Crm] 1 dose TOP BID 02/18/20 [History] Lactobacillus Rhamnosus GG [Culturelle] 1 cap PO BID #60 cap 02/19/20 [Rx] Nystatin 1 dose TOP DAILY PRN 02/19/20 [History] Pantoprazole [ProTONIX] 40 mg PO DAILY 05/18/20 [History] lidocaine HCL [Aspercreme] 76.5 gm TP ASDIRECTED 05/18/20 [History] tiZANidine HCl [Tizanidine HCl] 4 mg PO BID 05/18/20 [History] Past Medical History HEENT History: Reports: Cataract, Impaired Vision Other HEENT History: macular edema Cardiovascular History: Reports: CAD, High Cholesterol, DC, Stents, Syncope Respiratory History: Reports: Bronchitis, Recurrent, COPD, SOB Other Respiratory History: lung nodules Gastrointestinal History: Reports: Bowel Obstruction, Diverticulosis, Gastritis, GI Bleed, PUD Genitourinary History: Reports: UTI, Recurrent POLYMER TESTER History: Reports: , Other (See Below) Other POLYMER TESTER History: breast lumpectomy Musculoskeletal History: Reports: Back Pain, Chronic, Fracture, Fibromyalgia Neurological History: Reports: Alzheimers Disease, Seizure Other Neuro History: dementia Psychiatric History: Reports: Alzheimers Disease, Anxiety, Dementia, Depression, Suicide Attempt, Suicidal Ideation Other Psychiatric History: Dementia Endocrine/Metabolic History: Reports: Hypothyroidism, Other (See Below) Other Endocrine/Metabolic History: thyroid disease Hematologic History: Reports: Blood Transfusion(s), Other (See Below) Other Hematologic History: Serum antibody Anti-D Immunologic History: Reports: None Oncologic (Cancer) History: Reports: Breast Dermatologic History: Reports: Eczema - Infectious Disease History Infectious Disease History: Reports: Chicken Pox, Measles, Mumps Other Infectious Disease History: polio - Past Surgical History Head Surgeries/Procedures: Reports: None HEENT Surgical History: Reports: Cataract Surgery, Eye Surgery, Laser Surgery Cardiovascular Surgical History: Reports: Coronary Artery Stent, Vascular Surgery GI Surgical History: Reports: Colonoscopy, EGD, Hernia Repair/Other, Small Bowel, Other (See Below) Other GI Surgeries/Procedures: three bleeding ulcers 10/2017 Female Surgical History: Reports: Breast Biopsy, Mastectomy, Tubal Ligation, Other (See Below) Other Female Surgeries/Procedures: left side mastectomy Musculoskeletal Surgical History: Reports: Carpal Tunnel, Other (See Below) Other Musculoskeletal Surgeries/Procedures:: ring finger surgery Oncologic Surgical History: Reports: Lumpectomy, Mastectomy, Other (See Below) Other Oncologic Surgeries/Procedures: Left breast Social & Family History - Family History Family Medical History: Unobtainable - Tobacco Use Smoking Status *Q: Former Smoker Used Tobacco, but Quit: Yes Month/Year Tobacco Last Used: 10 years - Caffeine Use Caffeine Use: Reports: None - Recreational Drug Use Recreational Drug Use: No - Living Situation & Occupation Living situation: Reports: , Extended Care Facility Occupation: Disabled (lives at [facility] for 3 years, lives [place] of [place] at [facility], has 3 Daughters all live in [place].) ED ROS GENERAL - Review of Systems Review Of Systems: Unable To Obtain Reason Not Obtained: altered mentation ED EXAM, GENERAL - Physical Exam Exam: See Below Exam Limited By: Altered Mental Status General Appearance: Alert, No Apparent Distress Ears: Normal External Exam Nose: Normal Inspection Throat/Mouth: Normal Inspection Head: Atraumatic, Normocephalic Neck: Normal Inspection Respiratory/Chest: Lungs Clear Cardiovascular: No Murmur, Bradycardia GI/Abdominal: Soft, Tender (diffuse). No: Rigid Back Exam: Normal Inspection Extremities: Normal Inspection Neurological: Alert, Oriented Psychiatric: Normal Affect, Normal Mood Skin Exam: Warm, Dry Course - Vital Signs Last Recorded V/S: Last Vital Signs Temp 35.3 C L 05/18/20 08:40 Pulse 54 L 05/18/20 11:09 Resp 10 L 05/18/20 11:09 BP 157/87 H 05/18/20 11:09 Pulse Ox 100 05/18/20 11:09 - Orders/Labs/Meds Orders: Active Orders 24 hr Category Date Time Status EKG Documentation Completion [RC] ASDIRECTED Care 05/18/20 09:04 Active Norepinephrine [Levophed] 4 mg Med 05/18/20 09:00 Active Dextrose 5% in Water 246 ml IV TITRATE Sodium Chloride 0.9% [Saline Flush] Med 05/18/20 09:01 Active 10 ml FLUSH ASDIRECTED PRN Saline Lock Insert [OM.PC] Stat Ot 05/18/20 09:01 Ordered Severe Sepsis Onset Time [OM.PC] Stat Ot 05/18/20 09:01 Ordered EKG 12 Lead [EK] Routine Ther 05/18/20 09:04 Ordered Medication Orders Norepinephrine Bitartrate 4 mg (/ Dextrose/Water) 250 mls @ 7.5 mls/hr IV TITRATE ALBERTO; Protocol Last Admin: 05/18/20 08:59 Dose: 2 mcg/min, 7.5 mls/hr Documented by: PREILOR Sodium Chloride (Saline Flush) 10 ml FLUSH ASDIRECTED PRN PRN Reason: Keep Vein Open Last Admin: 05/18/20 09:25 Dose: 10 ml Documented by: PREILOR Labs: Laboratory Tests 05/18/20 05/18/20 05/18/20 Range/Units 08:56 09:03 09:17 WBC 5.8 (4.5-11.0) K/uL RBC 3.85 (3.30-5.50) M/uL Hgb 12.0 (12.0-15.0) g/dL Hct 37.2 (36.0-48.0) % MCV 97 (80-98) fL MCH 31 (27-31) pg MCHC 32 (32-36) % Plt Count 298 (150-400) K/uL PT (9.5-12.0) sec INR (0.80-1.20) ABG Hemoglobin 12.4 (12.0-16.0) g/dL ABG Oxyhemoglobin 59.7 % ABG Carboxyhemoglobin 1.9 H (0.0-1.6) % ABG Methemoglobin 0.6 % VBG pH 7.411 (7.350-7.450) VBG pCO2 43.0 mm/Hg VBG pO2 33.1 mm/Hg VBG HCO3 26.8 mmol/L VBG Total CO2 24.3 mmol/L VBG O2 Saturation 61.2 VBG O2 Content 10.3 %vol VBG Base Excess 2.3 mm/L O2 Delivery Device Room air Sodium 145 (140-148) mmol/L Potassium 3.5 L (3.6-5.2) mmol/L Chloride 108 (100-108) mmol/L Carbon Dioxide 27 (21-32) mmol/L Anion Gap 13.5 (5.0-14.0) mmol/L BUN 16 (7-18) mg/dL Creatinine 1.0 (0.6-1.0) mg/dL Est Cr Clr Drug Dosing 38.35 mL/min Estimated GFR (MDRD) 54 L (>60) Glucose 95 (74-106) mg/dL Lactic Acid (0.4-2.0) mmol/L Calcium 8.5 (8.5-10.1) mg/dL Total Bilirubin 0.6 (0.2-1.0) mg/dL AST 24 (15-37) U/L ALT 22 (12-78) U/L Alkaline Phosphatase 119 H (46-116) U/L Troponin I (0.000-0.056) ng/mL Total Protein 6.3 L (6.4-8.2) g/dL Albumin 2.4 L (3.4-5.0) g/dL Globulin 3.9 H (2.3-3.5) g/dL Albumin/Globulin Ratio 0.6 L (1.2-2.2) Lipase 147 (73-393) U/L 05/18/20 05/18/20 05/18/20 Range/Units 09:17 09:17 09:17 WBC (4.5-11.0) K/uL RBC (3.30-5.50) M/uL Hgb (12.0-15.0) g/dL Hct (36.0-48.0) % MCV (80-98) fL MCH (27-31) pg MCHC (32-36) % Plt Count (150-400) K/uL PT 10.9 (9.5-12.0) sec INR 1.01 (0.80-1.20) ABG Hemoglobin (12.0-16.0) g/dL ABG Oxyhemoglobin % ABG Carboxyhemoglobin (0.0-1.6) % ABG Methemoglobin % VBG pH (7.350-7.450) VBG pCO2 mm/Hg VBG pO2 mm/Hg VBG HCO3 mmol/L VBG Total CO2 mmol/L VBG O2 Saturation VBG O2 Content %vol VBG Base Excess mm/L O2 Delivery Device Sodium (140-148) mmol/L Potassium (3.6-5.2) mmol/L Chloride (100-108) mmol/L Carbon Dioxide (21-32) mmol/L Anion Gap (5.0-14.0) mmol/L BUN (7-18) mg/dL Creatinine (0.6-1.0) mg/dL Est Cr Clr Drug Dosing mL/min Estimated GFR (MDRD) (>60) Glucose (74-106) mg/dL Lactic Acid 1.9 (0.4-2.0) mmol/L Calcium (8.5-10.1) mg/dL Total Bilirubin (0.2-1.0) mg/dL AST (15-37) U/L ALT (12-78) U/L Alkaline Phosphatase (46-116) U/L Troponin I < 0.017 (0.000-0.056) ng/mL Total Protein (6.4-8.2) g/dL Albumin (3.4-5.0) g/dL Globulin (2.3-3.5) g/dL Albumin/Globulin Ratio (1.2-2.2) Lipase (73-393) U/L Meds: Medications Generic Name Dose Route Start Last Admin Trade Name Freq PRN Reason Stop Dose Admin Norepinephrine Bitartrate 4 mg 250 mls @ 7.5 mls/hr 05/18/20 09:00 05/18/20 08:59 / Dextrose/Water IV 2 mcg/min TITRATE ALBERTO 7.5 mls/hr Administration Protocol 2 MCG/MIN Sodium Chloride 10 ml 05/18/20 09:01 05/18/20 09:25 Saline Flush FLUSH 10 ml ASDIRECTED PRN Administration Keep Vein Open Discontinued Medications Generic Name Dose Route Start Last Admin Trade Name Freq PRN Reason Stop Dose Admin Sodium Chloride 1,000 mls @ 999 mls/hr 05/18/20 09:01 05/18/20 09:12 Normal Saline IV 05/18/20 10:01 999 mls/hr BOLUS ONE Administration Piperacillin Sod/Tazobactam 100 mls @ 100 mls/hr 05/18/20 09:01 05/18/20 09:20 Sod 4.5 gm/ Sodium Chloride IV 05/18/20 10:00 100 mls/hr STAT ONE Administration Sodium Chloride 100 mls @ 3 mls/sec 05/18/20 10:00 05/18/20 10:20 Normal Saline IV 05/18/20 10:01 3 mls/sec ASDIRECTED ALBERTO Administration Iopamidol 100 ml 05/18/20 09:51 05/18/20 10:20 Isovue-300 (61%) IV 05/18/20 09:52 100 ml ONETIME ONE Administration Sodium Chloride 10 ml 05/18/20 09:51 05/18/20 10:20 Saline Flush FLUSH 05/18/20 09:52 10 ml ONETIME ONE Administration - Re-Assessments/Exams Free Text/Narrative Re-Assessment/Exam: 80 yo presents with undifferentiated shock with altered mentation and back/abdominal pain. On arrival noted to have SBP in the 70s with MAP in 40s. SBP in 50s in the surgical center. Exam notable AMS although able to provide some history (unclear baseline) and abdominal tenderness. POCUS immediately performed which did not reveal obvious AAA (although some bowel gas obscuring view). Cardiac systolic function grossly normal, no effusion. IV access obtained x2 and NS bolus being administering. We are also starting her on levophed simultaneously for dangerously low BP. Unclear etiology - possibly carvedilol OD vs septic shock. EKG non-ischemic and no AV block. Sepsis labs pending. Will obtained CT CAP now as she has stabilized enough for this. Zosyn ordered. 05/18/20 09:28 Free Text/Narrative Re-Assessment/Exam: BP normalized after IVF bolus. Weaned off NE. Remains bradycardic. Labs generally unremarkable. CT shows possible early appendicitis - unclear if was actually driving today's picture. Discussed with surgery, will likely go for appendectomy tomorrow Admitted to hospitalist for further work up and management. 05/18/20 14:04 Departure - Departure Time of Disposition: 12:30 Disposition: Admitted As Inpatient 68 Clinical Impression: Bradycardia, Beta josef toxicity Hypotension Qualifiers: Hypotension type: unspecified hypotension type Qualified Code(s): I95.9 - Hypotension, unspecified Appendicitis Qualifiers: Appendicitis type: unspecified Qualified Code(s): K37 - Unspecified appendicitis Referrals: PCP,None [Primary Care Provider] - Forms: ED Department Discharge Critical Care Note - Critical Care Note Total Time (mins): 40 Comments: Critical care time was spent evaluating and treating life threatening hypotension, bradycardia, and undifferentiated shock. Sepsis Event Note (ED) - Evaluation Sepsis Screening Result: No Definite Risk - Focused Exam Vital Signs: Vital Signs Temp Pulse Resp BP Pulse Ox 05/18/20 11:09 54 L 10 L 157/87 H 100 05/18/20 10:39 58 L 16 169/78 H 98 05/18/20 10:26 57 L 13 161/73 H 100 05/18/20 09:39 53 L 17 139/63 99 05/18/20 09:24 44 L 12 93/54 L 96 05/18/20 09:09 46 L 15 106/49 L 96 05/18/20 08:53 52 L 16 82/36 L 94 L 05/18/20 08:52 48 L 73/31 L 94 L 05/18/20 08:40 35.3 C L 56 L 18 76/25 L 95 - My Orders Last 24 Hours: My Active Orders 05/18/20 09:00 Norepinephrine [Levophed] 4 mg Dextrose 5% in Water 246 ml IV TITRATE 05/18/20 09:01 Sodium Chloride 0.9% [Saline Flush] 10 ml FLUSH ASDIRECTED PRN Saline Lock Insert [OM.PC] Stat Severe Sepsis Onset Time [OM.PC] Stat 05/18/20 09:04 EKG Documentation Completion [RC] ASDIRECTED EKG 12 Lead [EK] Routine - Assessment/Plan Last 24 Hours: My Active Orders 05/18/20 09:00 Norepinephrine [Levophed] 4 mg Dextrose 5% in Water 246 ml IV TITRATE 05/18/20 09:01 Sodium Chloride 0.9% [Saline Flush] 10 ml FLUSH ASDIRECTED PRN Saline Lock Insert [OM.PC] Stat Severe Sepsis Onset Time [OM.PC] Stat 05/18/20 09:04 EKG Documentation Completion [RC] ASDIRECTED EKG 12 Lead [EK] Routine
[2020-05-18] MEDS ORDERED: Iopamidol 612 MG/ML 500 ML Multipack Bottle IV ONE (09:51)
[2020-05-18] MEDS ORDERED: Sodium Chloride 0.9% 10 ML Syringe FLUSH ONE (09:51)
[2020-05-18] MEDS ORDERED: Sodium Chloride 0.9% 100 ML IV SCH (10:00)
--- NOTE | 2020-05-18 11:05 | CT ---
Head wo Cont CLINICAL HISTORY: Falls, AMS COMPARISON: 2018 TECHNIQUE: Transverse scans were obtained from the base of the skull through the vertex without IV contrast on a multislice, multidetector CT scanner. Auto dosage reduction and iterative reconstruction techniques employed. FINDINGS: There is a focus of encephalomalacia in the anterior left the parietal lobe which is unchanged since September 2018. There is no mass effect, hemorrhage, or extraaxial collection. There is some periventricular and subcortical lucency bilaterally. The basal cisterns and sulci over the convexities are prominent. The ventricles are normal for age. 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
--- NOTE | 2020-05-18 11:22 | CT ---
Chest w Cont CLINICAL HISTORY: Unifferentiated shock COMPARISON: January 2019 TECHNIQUE: Thin section axial contiguous tomographic sections were taken through the chest after bolus IV iodinated contrast administration. Coronal and sagittal images were reconstructed. Auto dosage reduction and iterative reconstruction techniques employed. FINDINGS: Lungs are free of pulmonary mass or infiltrate. Mediastinum is free of mass or suspicious lymphadenopathy. The aorta has a normal contour. No definite pulmonary artery filling defects are identified. There are less than optimally opacified. No pleural effusions are seen. Chest wall appears intact. Patient has had previous the left mastectomy. IMPRESSION: No acute intrathoracic process Abdomen Pelvis w Cont CLINICAL HISTORY: UNdifferentiated shock COMPARISON: None. TECHNIQUE: Axial tomographic images are obtained from the dome of the diaphragm to the pubic symphysis with IV contrast enhancement. No oral contrast was used. Auto dosage reduction and iterative reconstruction techniques employed. FINDINGS: The liver shows no mass or biliary dilatation. The gallbladder has a normal appearance. The spleen has a normal size and shape. The pancreas shows no mass or inflammatory change. The adrenal glands appear normal bilaterally. The kidneys show no mass or hydronephrosis. The aorta shows atheromatous plaque without aneurysm. There is no suspicious retroperitoneal adenopathy. The appendix is dilated along its length with a maximum measurement of 9 mm distally. There is a fecolith at the tip of the cecum near the appendix origin. There is no significant inflammatory change in the periappendiceal fat. Abdominal pelvic fat planes and low pelvic side peoples are well demarcated. Uterus has a normal appearance. Bladder has a normal contour. There is sigmoid diverticulosis without evidence of diverticulitis. Patient has a severe compression deformity of L1. This was seen on a prior CT lumbar spine from 2018. IMPRESSION: Dilated but well demarcated appendix. There is no surrounding inflammatory change. Early changes of appendicitis are not excluded. Old L1 compression fracture
--- NOTE | 2020-05-18 14:12 | PCM.HP.2 ---
H&P History of Present Illness - General Date of Service: 05/18/20 Admit Problem/Dx: Admission Diagnosis/Problem Admission Diagnosis/Problem Acute appendicitis Source of Information: Patient, Family History Limitations: Reports: Altered Mental Status (dementia ) - History of Present Illness Initial Comments - Free Text/Narative: CC: low BP HPI: Daljit initially presented to the outpatient unit for epidural steroid injections. While she was there she was noted to have blood pressures with systolic readings in the 50s. She was sent to the emergency room for further evaluation. She was noted to be bradycardic and hypotensive there and norepinephrine was initiated. She has improved as far as her blood pressure after some volume resuscitation. She has significant dementia and is unable to provide any usable history at this time. History is gathered from the emergency room folks and her . He reports that she has had recent difficulty with back pain. She has been more lethargic and weaker and has had several falls. They have been attributing this to the back pain which has been increasing because she is overdue for her epidural steroid injections. She does not complain of any abdominal pain and does not think she has had any nausea. She keeps asking for a warm blanket and when can she go to her room. Her states that the assisted living has not noticed anything out of the ordinary. Work-up in the emergency room revealed fairly normal laboratory studies. Her heart rate has been in the 40s and 50s. Her blood pressures are now normal. A CT scan of the chest, abdomen and pelvis was completed and showed a dilated appendix with a fecalith at the origin of the appendix. Early acute appendicitis was suspected. The patient will be admitted for surgical management as well as ongoing management of her bradycardia. Back Pain Score (Numeric/FACES): 10 - Related Data Allergies/Adverse Reactions: Allergies Allergy/AdvReac Type Severity Reaction Status Date / Time No Known Allergies Allergy Verified 01/25/20 20:26 Home Medications: Home Meds Levothyroxine [Synthroid] 75 mcg PO ACBRK 06/15/14 [History] Memantine HCl [Namenda] 28 mg PO DAILY 06/15/14 [History] Aspirin [Halfprin] 81 mg PO DAILY 07/23/14 [History] atorvaSTATin [Lipitor] 40 mg PO BEDTIME 02/11/15 [History] Citalopram [Citalopram HBr] 10 mg PO BEDTIME 08/19/15 [History] Exemestane [Aromasin] 25 mg PO DAILY 09/26/18 [History] Multivit,Tx with Iron,Minerals [Therems-M] 1 tab PO DAILY 09/26/18 [History] Acetaminophen [Tylenol] 650 mg PO TID 12/07/18 [History] Amitriptyline [Elavil] 25 mg PO BEDTIME 11/01/19 [History] Furosemide 20 mg PO DAILY 11/01/19 [History] Loratadine [Claritin] 10 mg PO DAILY 11/01/19 [History] Rivastigmine Tartrate [Rivastigmine] 4.5 mg PO BID 11/01/19 [History] Sennosides [Senna] 8.6 mg PO DAILY PRN 11/01/19 [History] carvediloL [Carvedilol] 6.25 mg PO BID 11/01/19 [History] Donepezil HCl [Aricept] 1 tab PO BEDTIME 02/18/20 [History] Triamcinolone Acetonide [Triamcinolone Acetonide 0.1% Crm] 1 dose TOP BID 02/18/20 [History] Lactobacillus Rhamnosus GG [Culturelle] 1 cap PO BID #60 cap 02/19/20 [Rx] Nystatin 1 dose TOP DAILY PRN 02/19/20 [History] Pantoprazole [ProTONIX] 40 mg PO DAILY 05/18/20 [History] lidocaine HCL [Aspercreme] 76.5 gm TP ASDIRECTED 05/18/20 [History] tiZANidine HCl [Tizanidine HCl] 4 mg PO BID 05/18/20 [History] Past Medical History HEENT History: Reports: Cataract, Impaired Vision Other HEENT History: macular edema Cardiovascular History: Reports: CAD, High Cholesterol, [place], Stents, Syncope Respiratory History: Reports: Bronchitis, Recurrent, COPD, SOB Other Respiratory History: lung nodules Gastrointestinal History: Reports: Bowel Obstruction, Diverticulosis, Gastritis, GI Bleed, PUD Genitourinary History: Reports: UTI, Recurrent 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: , Other (See Below) Other OB/BYN History: breast lumpectomy Musculoskeletal History: Reports: Back Pain, Chronic, Fracture, Fibromyalgia Neurological History: Reports: Alzheimers Disease, Seizure Other Neuro History: dementia Psychiatric History: Reports: Alzheimers Disease, Anxiety, Dementia, Depression, Suicide Attempt, Suicidal Ideation Other Psychiatric History: Dementia Endocrine/Metabolic History: Reports: Hypothyroidism, Other (See Below) Other Endocrine/Metabolic History: thyroid disease Hematologic History: Reports: Blood Transfusion(s), Other (See Below) Other Hematologic History: Serum antibody Anti-D Immunologic History: Reports: None Oncologic (Cancer) History: Reports: Breast Dermatologic History: Reports: Eczema - Infectious Disease History Infectious Disease History: Reports: Chicken Pox, Measles, Mumps Other Infectious Disease History: polio - Past Surgical History Head Surgeries/Procedures: Reports: None HEENT Surgical History: Reports: Cataract Surgery, Eye Surgery, Laser Surgery Cardiovascular Surgical History: Reports: Coronary Artery Stent, Vascular Surgery GI Surgical History: Reports: Colonoscopy, EGD, Hernia Repair/Other, Small Bowel, Other (See Below) Other GI Surgeries/Procedures: three bleeding ulcers 10/2017 Female Surgical History: Reports: Breast Biopsy, Mastectomy, Tubal Ligation, Other (See Below) Other Female Surgeries/Procedures: left side mastectomy Musculoskeletal Surgical History: Reports: Carpal Tunnel, Other (See Below) Other Musculoskeletal Surgeries/Procedures:: ring finger surgery Oncologic Surgical History: Reports: Lumpectomy, Mastectomy, Other (See Below) Other Oncologic Surgeries/Procedures: Left breast Social & Family History - Family History Family Medical History: Unobtainable - Tobacco Use Smoking Status *Q: Former Smoker Used Tobacco, but Quit: Yes Month/Year Tobacco Last Used: 10 years - Caffeine Use Caffeine Use: Reports: None - Recreational Drug Use Recreational Drug Use: No - Living Situation & Occupation Living situation: Reports: , Extended Care Facility Occupation: Disabled (lives at Memory Care Unit for 3 years, lives [place] of [place] at [facility], has 3 Daughters all live in [place].) H&P Review of Systems - Review of Systems: Review Of Systems: Unable To Obtain Reason Not Obtained: advanced dementia Exam - Exam Exam: See Below - Vital Signs Vital Signs: Last Vital Signs Temp 35.3 C L 05/18/20 08:40 Pulse 54 L 05/18/20 11:09 Resp 10 L 05/18/20 11:09 BP 157/87 H 05/18/20 11:09 Pulse Ox 100 05/18/20 11:09 Weight: 74.843 kg - Exam Quality Assessment: No: Supplemental Oxygen General: Alert, Cooperative. No: Oriented, Mild Distress HEENT: Conjunctiva Clear, Mucosa Moist & [place]. No: Scleral Icterus Neck: Supple, Trachea Midline. No: Lymphadenopathy Lungs: Clear to Auscultation, Normal Respiratory Effort Cardiovascular: Regular Rhythm, Bradycardia, Systolic Murmur GI/Abdominal Exam: Normal Bowel Sounds, Soft, No Distention, Tender (mild epi gastric, moderate RLQ). No: Guarding Extremities: No Pedal Edema. No: Increased Warmth Peripheral Pulses: 2+: Dorsalis Pedis (L), Dorsalis Pedis (R) Skin: Warm, Dry Neuro Extensive - Mental Status: Alert, Nl Response to Commands. No: Oriented x3 Neuro Extensive - Motor, Sensory, Reflexes: No: Dysarthria, Abnormal Motor, Tremor Psychiatric: Alert, Normal Affect. No: Agitated - Patient Data Lab Results Last 24 hrs: Laboratory Results - last 24 hr 05/18/20 05/18/20 05/18/20 Range/Units 08:56 09:03 09:17 WBC 5.8 (4.5-11.0) K/uL RBC 3.85 (3.30-5.50) M/uL Hgb 12.0 (12.0-15.0) g/dL Hct 37.2 (36.0-48.0) % MCV 97 (80-98) fL MCH 31 (27-31) pg MCHC 32 (32-36) % Plt Count 298 (150-400) K/uL PT (9.5-12.0) sec INR (0.80-1.20) ABG Hemoglobin 12.4 (12.0-16.0) g/dL ABG Oxyhemoglobin 59.7 % ABG Carboxyhemoglobin 1.9 H (0.0-1.6) % ABG Methemoglobin 0.6 % VBG pH 7.411 (7.350-7.450) VBG pCO2 43.0 mm/Hg VBG pO2 33.1 mm/Hg VBG HCO3 26.8 mmol/L VBG Total CO2 24.3 mmol/L VBG O2 Saturation 61.2 VBG O2 Content 10.3 %vol VBG Base Excess 2.3 mm/L O2 Delivery Device Room air Sodium 145 (140-148) mmol/L Potassium 3.5 L (3.6-5.2) mmol/L Chloride 108 (100-108) mmol/L Carbon Dioxide 27 (21-32) mmol/L Anion Gap 13.5 (5.0-14.0) mmol/L BUN 16 (7-18) mg/dL Creatinine 1.0 (0.6-1.0) mg/dL Est Cr Clr Drug Dosing 38.35 mL/min Estimated GFR (MDRD) 54 L (>60) Glucose 95 (74-106) mg/dL Lactic Acid (0.4-2.0) mmol/L Calcium 8.5 (8.5-10.1) mg/dL Total Bilirubin 0.6 (0.2-1.0) mg/dL AST 24 (15-37) U/L ALT 22 (12-78) U/L Alkaline Phosphatase 119 H (46-116) U/L Troponin I (0.000-0.056) ng/mL Total Protein 6.3 L (6.4-8.2) g/dL Albumin 2.4 L (3.4-5.0) g/dL Globulin 3.9 H (2.3-3.5) g/dL Albumin/Globulin Ratio 0.6 L (1.2-2.2) Lipase 147 (73-393) U/L 05/18/20 05/18/20 05/18/20 Range/Units 09:17 09:17 09:17 WBC (4.5-11.0) K/uL RBC (3.30-5.50) M/uL Hgb (12.0-15.0) g/dL Hct (36.0-48.0) % MCV (80-98) fL MCH (27-31) pg MCHC (32-36) % Plt Count (150-400) K/uL PT 10.9 (9.5-12.0) sec INR 1.01 (0.80-1.20) ABG Hemoglobin (12.0-16.0) g/dL ABG Oxyhemoglobin % ABG Carboxyhemoglobin (0.0-1.6) % ABG Methemoglobin % VBG pH (7.350-7.450) VBG pCO2 mm/Hg VBG pO2 mm/Hg VBG HCO3 mmol/L VBG Total CO2 mmol/L VBG O2 Saturation VBG O2 Content %vol VBG Base Excess mm/L O2 Delivery Device Sodium (140-148) mmol/L Potassium (3.6-5.2) mmol/L Chloride (100-108) mmol/L Carbon Dioxide (21-32) mmol/L Anion Gap (5.0-14.0) mmol/L BUN (7-18) mg/dL Creatinine (0.6-1.0) mg/dL Est Cr Clr Drug Dosing mL/min Estimated GFR (MDRD) (>60) Glucose (74-106) mg/dL Lactic Acid 1.9 (0.4-2.0) mmol/L Calcium (8.5-10.1) mg/dL Total Bilirubin (0.2-1.0) mg/dL AST (15-37) U/L ALT (12-78) U/L Alkaline Phosphatase (46-116) U/L Troponin I < 0.017 (0.000-0.056) ng/mL Total Protein (6.4-8.2) g/dL Albumin (3.4-5.0) g/dL Globulin (2.3-3.5) g/dL Albumin/Globulin Ratio (1.2-2.2) Lipase (73-393) U/L Result Diagrams: 05/18/20 08:56 05/18/20 09:17 Imaging Impressions Last 24 hrs: CT scan of the chest, abdomen and pelvis-I did personally review these images-no acute pathology in the chest was noted. In the abdomen she was noted to have a dilated appendix with a fecalith near the origin of the appendix. No surrounding stranding in the abdomen near the appendix. Early acute appendicitis was suspected. 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 No acute findings. EKG INTERPRETATION EKG Date: 05/18/20 Rhythm: Other (Sinus bradycardia) Rate (Beats/Min): 40 [place]: Normal P-Wave: Present QRS: Normal ST-T: Normal QT: Normal Comparison: Change From Previous EKG Sepsis Event Note - Evaluation Sepsis Screening Result: No Definite Risk - Focused Exam Vital Signs: Vital Signs Temp Pulse Resp BP Pulse Ox 05/18/20 11:09 54 L 10 L 157/87 H 100 05/18/20 10:39 58 L 16 169/78 H 98 05/18/20 10:26 57 L 13 161/73 H 100 05/18/20 09:39 53 L 17 139/63 99 05/18/20 09:24 44 L 12 93/54 L 96 05/18/20 09:09 46 L 15 106/49 L 96 05/18/20 08:53 52 L 16 82/36 L 94 L 05/18/20 08:52 48 L 73/31 L 94 L 05/18/20 08:40 35.3 C L 56 L 18 76/25 L 95 Date Exam was Performed: 05/18/20 Time Exam was Performed: 17:50 - Problem List (1) Acute appendicitis without peritonitis SNOMED Code(s): 79447059 ICD Code: K35.80 - UNSPECIFIED ACUTE APPENDICITIS Status: Acute Current Visit: Yes (2) Symptomatic sinus bradycardia SNOMED Code(s): 954966915 ICD Code: R00.1 - BRADYCARDIA, UNSPECIFIED Status: Acute Current Visit: Yes (3) Chronic lower back pain SNOMED Code(s): 730217056 ICD Code: M54.5 - LOW BACK PAIN; G89.29 - OTHER CHRONIC PAIN Status: Chronic Current Visit: Yes Qualifiers: Back pain laterality: bilateral Sciatica presence: without sciatica Qualified Code(s): M54.5 - Low back pain; G89.29 - Other chronic pain (4) Alzheimer's dementia SNOMED Code(s): 22694567 ICD Code: G30.9 - ALZHEIMER'S DISEASE, UNSPECIFIED; F02.80 - DEMENTIA IN OTH DISEASES CLASSD ELSWHR W/O BEHAVRL DISTURB Status: Chronic Priority: High Current Visit: No Qualifiers: Alzheimer's disease onset: late-onset Dementia behavioral disturbance: without behavioral disturbance Qualified Code(s): G30.1 - Alzheimer's disease with late onset; F02.80 - Dementia in other diseases classified elsewhere w ithout behavioral disturbance Problem List Initiated/Reviewed/Updated: Yes Orders Last 24hrs: Active Orders 24 hr Category Date Time Status Patient Status Manage Transfer [TRANSFER] Routine ADT 05/18/20 14:02 Ordered EKG Documentation Completion [RC] ASDIRECTED Care 05/18/20 09:04 Active Norepinephrine [Levophed] 4 mg Med 05/18/20 09:00 Active Dextrose 5% in Water 246 ml IV TITRATE Sodium Chloride 0.9% [Saline Flush] Med 05/18/20 09:01 Active 10 ml FLUSH ASDIRECTED PRN Saline Lock Insert [OM.PC] Stat Oth 05/18/20 09:01 Ordered Severe Sepsis Onset Time [OM.PC] Stat Oth 05/18/20 09:01 Ordered Resuscitation Status Routine Resus Stat 05/18/20 14:04 Ordered EKG 12 Lead [EK] Routine Ther 05/18/20 09:04 Ordered Medication Orders Norepinephrine Bitartrate 4 mg (/ Dextrose/Water) 250 mls @ 7.5 mls/hr IV TITRATE ALBERTO; Protocol Last Admin: 05/18/20 08:59 Dose: 2 mcg/min, 7.5 mls/hr Documented by: PREILOR Sodium Chloride (Saline Flush) 10 ml FLUSH ASDIRECTED PRN PRN Reason: Keep Vein Open Last Admin: 05/18/20 09:25 Dose: 10 ml Documented by: PREILOR Assessment/Plan Comment:: ASSESSMENT AND PLAN - Acute appendicitis-found incidentally with imaging. No perforation or peritonitis and early disease is suspected. White count is normal and she is not febrile. Surgery is planned for the morning and I believe she has an optimal achievable medical condition for the procedure. -Antibiotic coverage with Pip/Tazo -IV fluids overnight -Surgical consultation with Dr. George and procedure planned tomorrow morning Symptomatic bradycardia-she is on both a beta-josef and donepezil. Both of these can contribute to bradycardia. These will be held. This could be contributing to recent difficulty with lethargy and falls. -Cardiac monitoring -Hold beta-josef and donepezil Chronic lower back pain-normally receives epidural steroid injections on a regular basis with good relief but was unable to get these this morning because of her low blood pressure. -Complete epidural steroid injections while in the hospital Late onset Alzheimer's disease without behavioral disturbance-no major issues at this time. -Melatonin at bedtime -Hold donepezil -Continue memantine Maintenance issues - - DVT prophylaxis -mechanical with upcoming surgery - GI prophylaxis -PPI - Nutrition -regular diet this evening and nothing by mouth after midnight - Bustillo catheter -not indicated CODE STATUS -full code Admission justification -this patient will be admitted for inpatient services and is medically appropriate meeting medical necessity for inpatient admission as outlined in my documentation. I reasonably expect the patient will require inpatient services that span a period time over 2 midnights. I reasonably expect this patient to be discharged or transferred within 96 hours [facility]. Disposition -I would anticipate discharge back to the [facility] after the hospital stay Primary care physician -Dr Grant Arellano M.D. - Mortality Measure Prognosis:: Good
[2020-05-18] MEDS ORDERED: Bupivacaine 0.25% 10 ML SDV ONE (14:24)
[2020-05-18] MEDS ORDERED: methylPREDNISolone Acetate 80 MG/ML SDV ONE (14:24)
[2020-05-18] MEDS ORDERED: Sodium Chloride 0.9% 1,000 ML IV SCH (15:56)
[2020-05-18] MEDS ORDERED: Ondansetron 4 MG/2 ML SDV IV PRN (15:56)
[2020-05-18] MEDS ORDERED: Magnesium Hydroxide 400 MG/5 ML Susp 30 ML Cup PO PRN (15:56)
[2020-05-18] MEDS ORDERED: Ondansetron 4 MG Tab.DIS PO PRN (15:56)
[2020-05-18] MEDS: Piperacillin/Tazobactam/Dext 3.375 GM in Premix Bag 1 BAG IV SCH ×2 (16:40→21:31)
[2020-05-18] MEDS: Acetaminophen 500 MG Tab PO SCH ×2 (16:41→21:22)
[2020-05-18] MEDS: Lactobacillus Rhamnosus GG (Probiotic) Cap PO SCH (21:20)
[2020-05-18] MEDS: Citalopram 10 MG Tab PO SCH (21:20)
[2020-05-18] MEDS: atorvaSTATin 20 MG Tab PO SCH (21:21)
[2020-05-18] MEDS: Melatonin 3 MG Tab PO SCH (21:21)
[2020-05-18] MEDS: Memantine 10 MG Tab PO SCH (21:22)
[2020-05-19] MEDS: oxyCODONE 5 MG Tab PO PRN ×2 (01:22→20:36)
[2020-05-19] MEDS: LORazepam 2 MG/ML SDV IVPUSH PRN ×3 (02:01→22:36)
[2020-05-19] MEDS: Piperacillin/Tazobactam/Dext 3.375 GM in Premix Bag 1 BAG IV SCH ×4 (03:32→22:07)
[2020-05-19] MEDS ORDERED: Bupivacaine 0.5%/EPINEPHrine 1:200,000 50 ML MDV ONE (06:45)
[2020-05-19] MEDS ORDERED: Meropenem 500 MG SDV ONE (07:14)
[2020-05-19] MEDS ORDERED: Carvedilol 6.25 MG Tab PO ONE (08:30)
[2020-05-19] MEDS ORDERED: fentaNYL 250 MCG/5 ML SDV ONE ×2 (08:54→11:56)
[2020-05-19] MEDS ORDERED: Neostigmine Methylsulfate 1 MG/ML 5 ML Syringe ONE (08:55)
[2020-05-19] MEDS ORDERED: Glycopyrrolate 0.2 MG/ML 5 ML MDV ONE (08:55)
[2020-05-19] MEDS ORDERED: Rocuronium 50 MG/5 ML Vial ONE (08:55)
[2020-05-19] MEDS ORDERED: Dexamethasone 4 MG/ML SDV ONE (08:55)
[2020-05-19] MEDS ORDERED: Ondansetron 4 MG/2 ML SDV ONE (08:55)
[2020-05-19] MEDS ORDERED: Propofol 200 MG/20 ML SDV ONE (08:55)
[2020-05-19] MEDS ORDERED: Succinylcholine 200 MG/10 ML MDV ONE (08:55)
[2020-05-19] MEDS ORDERED: Potassium Chloride 20 MEQ, Lidocaine 1% 2 ML in Sodium Chloride 0.9% 100 ML IV SCH (09:00)
--- NOTE | 2020-05-19 09:22 | CONS ---
DATE OF SERVICE: 05/19/2020 REFERRING PHYSICIAN: CONSULTING PHYSICIAN: Amy Bates PA-C HISTORY OF PRESENT ILLNESS: Daljit was a consultation to the Surgery Department for acute appendicitis. Daljit is a pleasant 80-year-old female with severe dementia. She was at outpatient unit for an epidural steroid injection for her back, but her blood pressure systolic readings were in the 50 and she was bradycardic. She was referred to the emergency room. Her reports that she has been more lethargic and weaker and has had several falls. She had no complaints of abdominal pain. Heart rate was in the 40s and 50s in ER. Blood pressure did resume to normal. A CT showed a dilated appendix with a fecalith in the origin of the appendix. She was admitted for early appendicitis. HOME MEDICATIONS: See EMR. PAST MEDICAL HISTORY: Cataract; impaired vision; macular edema; coronary artery disease; hypercholesterolemia; history of heart attack, has cardiac stents, and syncope. Respiratory: Recurrent bronchitis, COPD, has lung nodules. GI: History of diverticulosis, gastritis, GI bleed, pyloric ulcer disease, and history of bowel obstruction. : Recurrent UTI signs and symptoms. Breasts: History of left breast cancer. Musculoskeletal: Chronic back pain, history of a fracture, fibromyalgia. Neurological: Alzheimer disease and seizure disorder, dementia. Psychiatric history: Anxiety, depression, suicide attempt. Endocrine: Hypothyroidism. Has had blood transfusion. Serum antibody anti-D. Skin: Eczema. PAST SURGICAL HISTORY: Cataract surgery, bilateral, and laser surgery; coronary artery stent; has had a colonoscopy; EGD; hernia repair; and small bowel obstruction repair. GI: Has had 3 bleeding ulcers in 10/2007. Mastectomy, left tubal ligation, carpal tunnel, ring finger surgery. SOCIAL HISTORY: . Lives in a Memory Unit for 3 years. Three daughters. Retired. Tobacco: Former smoker. Caffeine: None. FAMILY MEDICAL HISTORY: Unobtainable due to dementia. PHYSICAL EXAMINATION: GENERAL: Daljit Mclean is a 80-year-old female. VITAL SIGNS: Height is 5 feet 3 inches, weight is 165 pounds. TPR is 97.5, 55, 18, blood pressure 124/60. HEENT: Negative. NECK: Supple. HEART: Regular rate and rhythm. LUNGS: Clear. ABDOMEN: Soft. She does not exhibit any tenderness. EXTREMITIES: Without peripheral edema. NEUROLOGIC: Intact. PSYCHIATRIC: History of dementia, but appears quite pleasant. ASSESSMENT: 1. Acute appendicitis. 2. Sinus bradycardia. 3. Chronic low back pain. 4. Alzheimer's dementia. PLAN: Schedule and have consent signed for laparoscopic possible open appendectomy. General anesthesia with TAP block, case to follow on 05/19/2020. Surgeon: Hector George MD. Bladder scan, call Dr. George with results. Give carvedilol this morning with a sip of water. Remain n.p.o. We will evaluate p.r.n. or in a.m. Amy Bates PA-C /[id number]
[2020-05-19] MEDS ORDERED: Lidocaine 1% with EPINEPHrine 1:100,000 50 ML MDV ONE (10:09)
[2020-05-19] MEDS ORDERED: Bupivacaine 0.5% 50 ML MDV ONE (10:09)
[2020-05-19] MEDS ORDERED: Ropivacaine 35 ML, dexAMETHasone 8 MG, EPINEPHrine 0.4 MG, Sodium Chloride 0.9% 42.6 ML NERVRT SCH ×4 (10:30)
--- NOTE | 2020-05-19 10:59 | PCM.PN ---
- General Info Date of Service: 05/19/20 Subjective Update: No acute events overnight. Patient remains pleasantly confused this morning. She wants something to drink. She is scheduled to go down for appendectomy in the near future. She does not complain of significant abdominal pain but is tender on examination. Heart rate has been in the 50s for the most part with occasional very short-lived dips down into the 40s. No fevers overnight. Functional Status: Reports: Pain Controlled - Review of Systems General: Denies: Fever Gastrointestinal: Reports: Abdominal Pain - Patient Data Vitals - Most Recent: Last Vital Signs Temp 36.4 C 05/19/20 07:00 Pulse 57 L 05/19/20 08:17 Resp 18 05/19/20 07:00 BP 124/60 05/19/20 08:17 Pulse Ox 93 L 05/19/20 07:00 Weight - Most Recent: 74.843 kg I&O - Last 24 Hours: Intake & Output 05/18/20 05/19/20 05/19/20 22:59 06:59 14:59 Intake Total 550 561 112 Output Total 50 Balance 550 561 62 Lab Results Last 24 Hours: Laboratory Results - last 24 hr 05/18/20 05/19/20 05/19/20 Range/Units 22:33 06:00 06:00 WBC 5.0 (4.5-11.0) K/uL RBC 3.98 (3.30-5.50) M/uL Hgb 12.0 (12.0-15.0) g/dL Hct 38.2 (36.0-48.0) % MCV 96 (80-98) fL MCH 30 (27-31) pg MCHC 31 L (32-36) % Plt Count 284 (150-400) K/uL Sodium 146 (140-148) mmol/L Potassium 3.5 L (3.6-5.2) mmol/L Chloride 111 H (100-108) mmol/L Carbon Dioxide 27 (21-32) mmol/L Anion Gap 11.5 (5.0-14.0) mmol/L BUN 14 (7-18) mg/dL Creatinine 0.8 (0.6-1.0) mg/dL Est Cr Clr Drug Dosing 47.94 mL/min Estimated GFR (MDRD) > 60 (>60) Glucose 117 H (74-106) mg/dL Calcium 8.5 (8.5-10.1) mg/dL SARS Virus RNA (PCR) Negative (NEGATIVE) Med Orders - Current: Current Medications Acetaminophen (Tylenol Extra Strength) 1,000 mg PO TID [facility] Last Admin: 05/18/20 21:22 Dose: 1,000 mg Documented by: Aspirin (Halfprin) 81 mg PO DAILY [facility] Atorvastatin Calcium (Lipitor) 40 mg PO BEDTIME [facility] Last Admin: 05/18/20 21:21 Dose: 40 mg Documented by: Citalopram Hydrobromide (Celexa) 10 mg PO BEDTIME [facility] Last Admin: 05/18/20 21:20 Dose: 10 mg Documented by: Ropivacaine 35 ml/Dexamethasone 8 mg/Epinephrine HCl 0.4 mg/ Sodium Chloride 42.6 ml 0 ml NERVRT ASDIRECTED [facility] Sodium Chloride (Normal Saline) 1,000 mls @ 50 mls/hr IV ASDIRECTED [facility] Last Admin: 05/18/20 16:23 Dose: 50 mls/hr Documented by: Piperacillin/Tazobactam/ (Dextrose 3.375 gm/ Premix) 50 mls @ 100 mls/hr IV Q6H [facility] Last Admin: 05/19/20 10:57 Dose: 100 mls/hr Documented by: Potassium Chloride 20 meq/Lidocaine HCl 2 ml/ Sodium Chloride 112 mls @ 50 mls/hr IV Q2H [facility] Stop: 05/19/20 10:59 Last Admin: 05/19/20 08:56 Dose: 50 mls/hr Documented by: Lactobacillus Rhamnosus (Culturelle) 1 cap PO BID [facility] Last Admin: 05/18/20 21:20 Dose: 1 cap Documented by: Levothyroxine Sodium (Levothyroxine) 75 mcg PO DAILY@0730 [facility] Loratadine (Claritin) 10 mg PO DAILY [facility] Lorazepam (Ativan) 0.5 mg IVPUSH Q4H PRN PRN Reason: Nausea/Vomiting Last Admin: 05/19/20 02:01 Dose: 0.5 mg Documented by: Magnesium Hydroxide (Milk Of Magnesia) 30 ml PO Q12H PRN PRN Reason: Constipation Melatonin (Melatonin) 9 mg PO BEDTIME [facility] Last Admin: 05/18/20 21:21 Dose: 9 mg Documented by: Memantine (Namenda) 10 mg PO BID [facility] Last Admin: 05/18/20 21:22 Dose: 10 mg Documented by: Non-Formulary Medication (Tap Block, Pharmacy To Dose) 0 ml NERVRT ASDIRECTED [facility] Stop: 05/19/20 16:00 Ondansetron HCl (Zofran) 4 mg IV Q6H PRN PRN Reason: Nausea/Vomiting Ondansetron HCl (Zofran Odt) 4 mg PO Q6H PRN PRN Reason: Nausea able to take PO Oxycodone HCl (Oxycodone) 5 mg PO Q4H PRN PRN Reason: Pain (moderate 4-6) Last Admin: 05/19/20 01:22 Dose: 5 mg Documented by: Pantoprazole Sodium (Protonix) 40 mg PO DAILY@729 [facility] Rivastigmine (Exelon) 4.5 mg PO BID [facility] Last Admin: 05/18/20 21:20 Dose: 4.5 mg Documented by: Senna/Docusate Sodium (Senna Plus) 1 tab PO BID PRN PRN Reason: Constipation Sodium Chloride (Saline Flush) 10 ml FLUSH ASDIRECTED PRN PRN Reason: Keep Vein Open Last Admin: 05/18/20 09:25 Dose: 10 ml Documented by: Discontinued Medications Bupivacaine HCl (Sensorcaine-Mpf 0.25%) Confirm Administered Dose 10 ml .ROUTE .STK-MED ONE Stop: 05/18/20 14:25 Bupivacaine HCl (Marcaine 0.5%) Confirm Administered Dose 50 ml .ROUTE .STK-MED ONE Stop: 05/19/20 10:10 Bupivacaine HCl/Epinephrine Bitart (Marcaine 0.5%/Epinephrine 1:200,000) Confirm Administered Dose 50 ml .ROUTE .STK-MED ONE Stop: 05/19/20 06:46 Carvedilol (Coreg) 6.25 mg PO ONETIME ONE Stop: 05/19/20 08:31 Last Admin: 05/19/20 08:17 Dose: 6.25 mg Documented by: Dexamethasone (Dexamethasone) Confirm Administered Dose 4 mg .ROUTE .STK-MED ONE Stop: 05/19/20 08:56 Fentanyl (Sublimaze) Confirm Administered Dose 250 mcg .ROUTE .STK-MED ONE Stop: 05/19/20 08:55 Glycopyrrolate (Robinul) Confirm Administered Dose 1 mg .ROUTE .STK-MED ONE Stop: 05/19/20 08:56 Norepinephrine Bitartrate 4 mg (/ Dextrose/Water) 250 mls @ 7.5 mls/hr IV TITRATE [facility]; Protocol Last Admin: 05/18/20 08:59 Dose: 2 mcg/min, 7.5 mls/hr Documented by: Sodium Chloride (Normal Saline) 1,000 mls @ 999 mls/hr IV BOLUS ONE Stop: 05/18/20 10:01 Last Admin: 05/18/20 09:12 Dose: 999 mls/hr Documented by: Piperacillin Sod/Tazobactam (Sod 4.5 gm/ Sodium Chloride) 100 mls @ 100 mls/hr IV STAT ONE Stop: 05/18/20 10:00 Last Admin: 05/18/20 09:20 Dose: 100 mls/hr Documented by: Sodium Chloride (Normal Saline) 100 mls @ 3 mls/sec IV ASDIRECTED [facility] Stop: 05/18/20 10:01 Last Admin: 05/18/20 10:20 Dose: 3 mls/sec Documented by: Iopamidol (Isovue-300 (61%)) 100 ml IV ONETIME ONE Stop: 05/18/20 09:52 Last Admin: 05/18/20 10:20 Dose: 100 ml Documented by: Lidocaine/Epinephrine (Xylocaine 1% With Epinephrine 1:100,000) Confirm Administered Dose 50 ml .ROUTE .STK-MED ONE Stop: 05/19/20 10:10 Meropenem (Merrem) Confirm Administered Dose 500 mg .ROUTE .STK-MED ONE Stop: 05/19/20 07:15 Methylprednisolone Acetate (Depo-Medrol) Confirm Administered Dose 80 mg .ROUTE .STK-MED ONE Stop: 05/18/20 14:25 Neostigmine Methylsulfate (Neostigmine) Confirm Administered Dose 5 mg .ROUTE .STK-MED ONE Stop: 05/19/20 08:56 Ondansetron HCl (Zofran) Confirm Administered Dose 4 mg .ROUTE .STK-MED ONE Stop: 05/19/20 08:56 Propofol (Diprivan 20 Ml) Confirm Administered Dose 200 mg .ROUTE .STK-MED ONE Stop: 05/19/20 08:56 Rocuronium [place] (Zemuron) Confirm Administered Dose 50 mg .ROUTE .STK-MED ONE Stop: 05/19/20 08:56 Sodium Chloride (Saline Flush) 10 ml FLUSH ONETIME ONE Stop: 05/18/20 09:52 Last Admin: 05/18/20 10:20 Dose: 10 ml Documented by: Succinylcholine Chloride (Quelicin) Confirm Administered Dose 200 mg .ROUTE .STK-MED ONE Stop: 05/19/20 08:56 - Exam Quality Assessment: No: Supplemental Oxygen General: Alert, Cooperative, No Acute Distress. No: Oriented Lungs: Clear to Auscultation, Normal Respiratory Effort Cardiovascular: Regular Rhythm, Bradycardia GI/Abdominal Exam: Normal Bowel Sounds, Soft, No Distention, Tender Extremities: No Pedal Edema. No: Increased Warmth Skin: Warm, Dry Psy/Mental Status: Alert, Normal Affect Sepsis Event Note - Evaluation Sepsis Screening Result: No Definite Risk - Focused Exam Vital Signs: Vital Signs Temp Pulse Pulse Resp BP BP Pulse Ox 05/19/20 08:17 57 L 124/60 05/19/20 07:00 36.4 C 55 L 18 124/60 93 L 05/19/20 01:00 37.1 C 53 L 16 139/59 L 97 Date Exam was Performed: 05/19/20 Time Exam was Performed: 16:30 - Problem List & Annotations (1) Acute appendicitis without peritonitis SNOMED Code(s): 67052769 Code(s): K35.80 - UNSPECIFIED ACUTE APPENDICITIS Status: Acute Current Visit: Yes (2) Symptomatic sinus bradycardia SNOMED Code(s): 841852442 Code(s): R00.1 - BRADYCARDIA, UNSPECIFIED Status: Acute Current Visit: Yes (3) Chronic lower back pain SNOMED Code(s): 166286061 Code(s): M54.5 - LOW BACK PAIN; G89.29 - OTHER CHRONIC PAIN Status: Chronic Current Visit: Yes Qualifiers: Back pain laterality: bilateral Sciatica presence: without sciatica Qualified Code(s): M54.5 - Low back pain; G89.29 - Other chronic pain (4) Alzheimer's dementia SNOMED Code(s): 04550634 Code(s): G30.9 - ALZHEIMER'S DISEASE, UNSPECIFIED; F02.80 - DEMENTIA IN OTH DISEASES CLASSD ELSWHR W/O BEHAVRL DISTURB Status: Chronic Priority: High Current Visit: No Qualifiers: Alzheimer's disease onset: late-onset Dementia behavioral disturbance: without behavioral disturbance Qualified Code(s): G30.1 - Alzheimer's disease with late onset; F02.80 - Dementia in other diseases classified elsewhere without behavioral disturbance - Problem List Review Problem List Initiated/Reviewed/Updated: Yes - My Orders Last 24 Hours: My Active Orders 05/18/20 14:04 Resuscitation Status Routine 05/18/20 15:56 Acetaminophen [Tylenol Extra Strength] 1,000 mg PO TID Docusate Sodium/Sennosides [Senna Plus] 1 tab PO BID PRN LORazepam [Ativan] 0.5 mg IVPUSH Q4H PRN Magnesium Hydroxide [Milk of Magnesia] 30 ml PO Q12H PRN Ondansetron [Zofran ODT] 4 mg PO Q6H PRN Ondansetron [Zofran] 4 mg IV Q6H PRN Sodium Chloride 0.9% [Normal Saline] 1,000 ml IV ASDIRECTED oxyCODONE 5 mg PO Q4H PRN 05/18/20 15:56 Patient Status [ADT] Routine Antiembolic Devices [RC] .Routine Intake and Output [RC] QSHIFT Notify Provider Consults [RC] ASDIRECTED Notify Provider Vital Signs [RC] ASDIRECTED Oxygen Therapy [RC] PRN Up With Assistance [RC] ASDIRECTED VTE/DVT Education [RC] Per Unit Routine Vital Signs [RC] Q4H Consult to Physician [CONS] Routine Sequential Compression Device [OM.PC] Routine VTE Pharmacological Contraindications [AST] Routine 05/18/20 16:00 Piperacillin/Tazobactam/Dext [Zosyn in Dextrose Iso-Osmotic 3.375 GM] 3.375 gm Premix Bag 1 bag IV Q6H 05/18/20 Dinner Nothing per Oral After Midnight Diet [DIET] 05/18/20 17:31 Cardiac Monitoring [RC] .As Directed 05/18/20 21:00 Citalopram [Celexa] 10 mg PO BEDTIME Lactobacillus Rhamnosus GG [Culturelle] 1 cap PO BID Melatonin 9 mg PO BEDTIME Memantine [Namenda] 10 mg PO BID Rivastigmine [Exelon] 4.5 mg PO BID atorvaSTATin [Lipitor] 40 mg PO BEDTIME 07/02/20 07:30 Levothyroxine 75 mcg PO DAILY@07 Pantoprazole [ProTONIX] 40 mg PO DAILY@72905/19/20 09:00 Aspirin [Halfprin] 81 mg PO DAILY Loratadine [Claritin] 10 mg PO DAILY Potassium Chloride 20 meq Lidocaine 1% [Xylocaine 1%] 2 ml Sodium Chloride 0.9% [Normal Saline] 100 ml IV Q2H - Plan Plan:: ASSESSMENT AND PLAN - Acute appendicitis-found incidentally with imaging. No perforation or peritonitis and early disease is suspected. Surgical intervention planned for later this morning. -Antibiotic coverage with Pip/Tazo -IV fluids -Surgical consultation with Dr. George and appendectomy planned for this morning Symptomatic bradycardia-she is on both a beta-josef and donepezil. Both of these can contribute to bradycardia. Heart rate is little better but still on the bradycardic side. Hemodynamically she is stable. -Cardiac monitoring -Hold beta-josef and donepezil Chronic lower back pain-she did get her injections yesterday. Moderate pain reported today. Overall she looks comfortable. -Pain control -Outpatient follow-up Late onset Alzheimer's disease without behavioral disturbance-no major issues at this time. -Melatonin at bedtime -Hold donepezil -Continue memantine Maintenance issues - - DVT prophylaxis -mechanical with upcoming surgery - GI prophylaxis -PPI - Nutrition -regular diet this evening and nothing by mouth after midnight Disposition -I would anticipate discharge back to the [facility] after the hospital stay Primary care physician -Dr Grant Arellano M.D.
[2020-05-19] MEDS ORDERED: Lactated Ringers 1,000 ML ONE (11:23)
[2020-05-19] MEDS ORDERED: Naloxone 0.4 MG/ML SDV ONE (12:52)
[2020-05-19] MEDS: Loratadine 10 MG Tab PO SCH (15:23)
[2020-05-19] MEDS: Levothyroxine 25 MCG Tab PO SCH (15:23)
[2020-05-19] MEDS: Lactobacillus Rhamnosus GG (Probiotic) Cap PO SCH ×2 (15:23→20:22)
[2020-05-19] MEDS: Pantoprazole 40 MG Tab.CR PO SCH (15:23)
[2020-05-19] MEDS: Aspirin 81 MG Tab.EC PO SCH (15:24)
[2020-05-19] MEDS: Acetaminophen 500 MG Tab PO SCH ×3 (15:24→20:24)
[2020-05-19] MEDS: Memantine 10 MG Tab PO SCH ×2 (15:24→20:24)
[2020-05-19] MEDS: Dextrose 5%-Lactated Ringers 1,000 ML IV SCH (17:31)
[2020-05-19] MEDS: Citalopram 10 MG Tab PO SCH (20:22)
[2020-05-19] MEDS: Docusate Sodium 100 MG Cap PO SCH (20:22)
[2020-05-19] MEDS: Bisacodyl 5 MG Tab PO SCH (20:22)
[2020-05-19] MEDS: atorvaSTATin 20 MG Tab PO SCH (20:23)
[2020-05-19] MEDS: Melatonin 3 MG Tab PO SCH (20:23)
[2020-05-20] MEDS: oxyCODONE 5 MG Tab PO PRN ×2 (00:03→10:51)
[2020-05-20] MEDS: Dextrose 5%-Lactated Ringers 1,000 ML IV SCH (02:30)
[2020-05-20] MEDS: LORazepam 2 MG/ML SDV IVPUSH PRN (02:30)
[2020-05-20] MEDS: Piperacillin/Tazobactam/Dext 3.375 GM in Premix Bag 1 BAG IV SCH ×4 (03:23→22:40)
[2020-05-20] MEDS: Levothyroxine 25 MCG Tab PO SCH (07:50)
[2020-05-20] MEDS: Pantoprazole 40 MG Tab.CR PO SCH (07:50)
[2020-05-20] MEDS: Aspirin 81 MG Tab.EC PO SCH (08:05)
[2020-05-20] MEDS: Lactobacillus Rhamnosus GG (Probiotic) Cap PO SCH ×2 (08:05→20:32)
[2020-05-20] MEDS: Docusate Sodium 100 MG Cap PO SCH ×2 (08:05→20:32)
[2020-05-20] MEDS: Memantine 10 MG Tab PO SCH ×2 (08:05→20:34)
[2020-05-20] MEDS: Loratadine 10 MG Tab PO SCH (08:06)
[2020-05-20] MEDS: Bisacodyl 5 MG Tab PO SCH ×2 (08:06→20:31)
[2020-05-20] MEDS ORDERED: Dextrose 5%-Lactated Ringers 1,000 ML IV SCH (08:15)
[2020-05-20] MEDS ORDERED: Carvedilol 6.25 MG Tab PO SCH (09:00)
[2020-05-20] MEDS: EXEMESTANE 25 MG PO SCH (10:27)
[2020-05-20] MEDS: Furosemide 20 MG Tab PO SCH (10:27)
[2020-05-20] MEDS: Acetaminophen 500 MG Tab PO SCH ×3 (10:28→20:33)
[2020-05-20] MEDS: tiZANidine 4 MG Tab PO SCH ×2 (10:28→20:34)
[2020-05-20] MEDS: Potassium Phos in 0.9 % NaCl 250 ML IV SCH ×2 (10:29→16:08)
--- NOTE | 2020-05-20 14:05 | PCM.PN ---
- General Info Date of Service: 05/20/20 Subjective Update: No acute events overnight. Patient had an uneventful appendectomy and partial cecectomy yesterday. Pain is well controlled. No major behavior issues but she has been pleasantly confused. She has not had any fevers. Tolerating diet though she does not have much of an appetite. Still bradycardic with heart rate mostly is in the 50s but sometimes in the 40s and occasionally down to the 30s. Functional Status: Reports: Pain Controlled, Tolerating Diet - Review of Systems General: Denies: Fever - Patient Data Vitals - Most Recent: Last Vital Signs Temp 36.0 C L 05/20/20 10:43 Pulse 56 L 05/20/20 10:43 Resp 18 05/20/20 10:43 BP 113/47 L 05/20/20 10:43 Pulse Ox 93 L 05/20/20 10:43 Weight - Most Recent: 74.843 kg I&O - Last 24 Hours: Intake & Output 05/19/20 05/20/20 05/20/20 22:59 06:59 14:59 Intake Total 1700 1753 660 Output Total 129 265 105 Balance 1571 1488 555 Lab Results Last 24 Hours: Laboratory Results - last 24 hr 05/20/20 05/20/20 Range/Units 05:17 05:17 WBC 12.0 H (4.5-11.0) K/uL RBC 3.59 (3.30-5.50) M/uL Hgb 11.2 L (12.0-15.0) g/dL Hct 35.0 L (36.0-48.0) % MCV 98 (80-98) fL MCH 31 (27-31) pg MCHC 32 (32-36) % Plt Count 262 (150-400) K/uL Sodium 143 (140-148) mmol/L Potassium 3.4 L (3.6-5.2) mmol/L Chloride 109 H (100-108) mmol/L Carbon Dioxide 28 (21-32) mmol/L Anion Gap 9.4 (5.0-14.0) mmol/L BUN 11 (7-18) mg/dL Creatinine 0.8 (0.6-1.0) mg/dL Est Cr Clr Drug Dosing 47.92 mL/min Estimated GFR (MDRD) > 60 (>60) Glucose 190 H (74-106) mg/dL Calcium 8.4 L (8.5-10.1) mg/dL Phosphorus 2.9 (2.5-4.9) mg/dL Magnesium 2.1 (1.8-2.4) mg/dL Total Bilirubin 0.4 (0.2-1.0) mg/dL AST 22 (15-37) U/L ALT 20 (12-78) U/L Alkaline Phosphatase 100 (46-116) U/L NT-Pro-B Natriuret Pep 1607 H (5-450) pg/mL Total Protein 6.4 (6.4-8.2) g/dL Albumin 2.2 L (3.4-5.0) g/dL Globulin 4.2 H (2.3-3.5) g/dL Albumin/Globulin Ratio 0.5 L (1.2-2.2) Med Orders - Current: Current Medications Acetaminophen (Tylenol Extra Strength) 1,000 mg PO TID [facility] Last Admin: 05/20/20 10:28 Dose: 1,000 mg Documented by: Amitriptyline HCl (Elavil) 25 mg PO BEDTIME [facility] Aspirin (Halfprin) 81 mg PO DAILY [facility] Last Admin: 05/20/20 08:05 Dose: 81 mg Documented by: Atorvastatin Calcium (Lipitor) 40 mg PO BEDTIME [facility] Last Admin: 05/19/20 20:23 Dose: 40 mg Documented by: Bisacodyl (Dulcolax) 10 mg PO BID [facility] Last Admin: 05/20/20 08:06 Dose: 10 mg Documented by: Citalopram Hydrobromide (Celexa) 10 mg PO BEDTIME [facility] Last Admin: 05/19/20 20:22 Dose: 10 mg Documented by: Docusate Sodium (Colace) 100 mg PO BID [facility] Last Admin: 05/20/20 08:05 Dose: 100 mg Documented by: Furosemide (Lasix) 20 mg PO DAILY [facility] Last Admin: 05/20/20 10:27 Dose: 20 mg Documented by: Piperacillin/Tazobactam/ (Dextrose 3.375 gm/ Premix) 50 mls @ 100 mls/hr IV Q6H [facility] Last Admin: 05/20/20 10:25 Dose: 100 mls/hr Documented by: Potassium Phosphate (Potassium Phos 15 Mmol/250 Ml-Ns) 250 mls @ 85 mls/hr IV Q3H [facility] Stop: 05/20/20 17:27 Last Admin: 05/20/20 10:29 Dose: 85 mls/hr Documented by: Lactobacillus Rhamnosus (Culturelle) 1 cap PO BID [facility] Last Admin: 05/20/20 08:05 Dose: 1 cap Documented by: Levothyroxine Sodium (Levothyroxine) 75 mcg PO DAILY@729 [facility] Last Admin: 05/20/20 07:50 Dose: 75 mcg Documented by: Loratadine (Claritin) 10 mg PO DAILY [facility] Last Admin: 05/20/20 08:06 Dose: 10 mg Documented by: Lorazepam (Ativan) 0.5 mg IVPUSH Q4H PRN PRN Reason: Nausea/Vomiting Last Admin: 05/20/20 02:30 Dose: 0.5 mg Documented by: Magnesium Hydroxide (Milk Of Magnesia) 30 ml PO Q12H PRN PRN Reason: Constipation Melatonin (Melatonin) 9 mg PO BEDTIME [facility] Last Admin: 05/19/20 20:23 Dose: 9 mg Documented by: Memantine (Namenda) 10 mg PO BID [facility] Last Admin: 05/20/20 08:05 Dose: 10 mg Documented by: Ondansetron HCl (Zofran) 4 mg IV Q6H PRN PRN Reason: Nausea/Vomiting Ondansetron HCl (Zofran Odt) 4 mg PO Q6H PRN PRN Reason: Nausea able to take PO Oxycodone HCl (Oxycodone) 5 mg PO Q4H PRN PRN Reason: Pain (moderate 4-6) Last Admin: 05/20/20 10:51 Dose: 5 mg Documented by: Pantoprazole Sodium (Protonix) 40 mg PO DAILY@729 [facility] Last Admin: 05/20/20 07:50 Dose: 40 mg Documented by: Exemestane (Aromasin () 25mg TabsPom) 0 each PO DAILY [facility] Last Admin: 05/20/20 10:27 Dose: Not Given Documented by: Senna/Docusate Sodium (Senna Plus) 1 tab PO BID PRN PRN Reason: Constipation Sodium Chloride (Saline Flush) 10 ml FLUSH ASDIRECTED PRN PRN Reason: Keep Vein Open Last Admin: 05/18/20 09:25 Dose: 10 ml Documented by: Tizanidine HCl (Zanaflex) 4 mg PO BID [facility] Last Admin: 05/20/20 10:28 Dose: 4 mg Documented by: Discontinued Medications Bupivacaine HCl (Sensorcaine-Mpf 0.25%) Confirm Administered Dose 10 ml .ROUTE .STK-MED ONE Stop: 05/18/20 14:25 Bupivacaine HCl (Marcaine 0.5%) Confirm Administered Dose 50 ml .ROUTE .STK-MED ONE Stop: 05/19/20 10:10 Last Admin: 05/19/20 11:39 Dose: 20 ml Documented by: Bupivacaine HCl/Epinephrine Bitart (Marcaine 0.5%/Epinephrine 1:200,000) Confirm Administered Dose 50 ml .ROUTE .STK-MED ONE Stop: 05/19/20 06:46 Carvedilol (Coreg) 6.25 mg PO ONETIME ONE Stop: 05/19/20 08:31 Last Admin: 05/19/20 08:17 Dose: 6.25 mg Documented by: Carvedilol (Coreg) 6.25 mg PO BIDMEALS [facility] Ropivacaine 35 ml/Dexamethasone 8 mg/Epinephrine HCl 0.4 mg/ Sodium Chloride 42.6 ml 0 ml NERVRT ASDIRECTED [facility] Last Admin: 05/19/20 12:20 Dose: 80 syringe Documented by: Dexamethasone (Dexamethasone) Confirm Administered Dose 4 mg .ROUTE .STK-MED ONE Stop: 05/19/20 08:56 Donepezil HCl (Aricept) 10 mg PO BEDTIME [facility] Fentanyl (Sublimaze) Confirm Administered Dose 250 mcg .ROUTE .STK-MED ONE Stop: 05/19/20 08:55 Fentanyl (Sublimaze) Confirm Administered Dose 250 mcg .ROUTE .STK-MED ONE Stop: 05/19/20 11:57 Glycopyrrolate (Robinul) Confirm Administered Dose 1 mg .ROUTE .STK-MED ONE Stop: 05/19/20 08:56 Norepinephrine Bitartrate 4 mg (/ Dextrose/Water) 250 mls @ 7.5 mls/hr IV TITRATE [facility]; Protocol Last Admin: 05/18/20 08:59 Dose: 2 mcg/min, 7.5 mls/hr Documented by: Sodium Chloride (Normal Saline) 1,000 mls @ 999 mls/hr IV BOLUS ONE Stop: 05/18/20 10:01 Last Admin: 05/18/20 09:12 Dose: 999 mls/hr Documented by: Piperacillin Sod/Tazobactam (Sod 4.5 gm/ Sodium Chloride) 100 mls @ 100 mls/hr IV STAT ONE Stop: 05/18/20 10:00 Last Admin: 05/18/20 09:20 Dose: 100 mls/hr Documented by: Sodium Chloride (Normal Saline) 100 mls @ 3 mls/sec IV ASDIRECTED [facility] Stop: 05/18/20 10:01 Last Admin: 05/18/20 10:20 Dose: 3 mls/sec Documented by: Sodium Chloride (Normal Saline) 1,000 mls @ 50 mls/hr IV ASDIRECTED [facility] Last Admin: 05/18/20 16:23 Dose: 50 mls/hr Documented by: Potassium Chloride 20 meq/Lidocaine HCl 2 ml/ Sodium Chloride 112 mls @ 50 mls/hr IV Q2H [facility] Stop: 05/19/20 10:59 Last Admin: 05/19/20 08:56 Dose: 50 mls/hr Documented by: Lactated Ringer's (Ringers, Lactated) Confirm Administered Dose 1,000 mls @ as directed .ROUTE .STK-MED ONE Stop: 05/19/20 11:24 Dextrose/Lactated Ringer's (Dextrose 5%-Lactated Ringers) 1,000 mls @ 100 mls/h r IV ASDIRECTED [facility] Last Admin: 05/20/20 02:30 Dose: 100 mls/hr Documented by: Dextrose/Lactated Ringer's (Dextrose 5%-Lactated Ringers) 1,000 mls @ 75 mls/hr IV ASDIRECTED [facility] Iopamidol (Isovue-300 (61%)) 100 ml IV ONETIME ONE Stop: 05/18/20 09:52 Last Admin: 05/18/20 10:20 Dose: 100 ml Documented by: Lidocaine/Epinephrine (Xylocaine 1% With Epinephrine 1:100,000) Confirm Administered Dose 50 ml .ROUTE .STK-MED ONE Stop: 05/19/20 10:10 Last Admin: 05/19/20 11:40 Dose: 20 ml Documented by: Meropenem (Merrem) Confirm Administered Dose 500 mg .ROUTE .STK-MED ONE Stop: 05/19/20 07:15 Last Admin: 05/19/20 11:40 Dose: 500 mg Documented by: Methylprednisolone Acetate (Depo-Medrol) Confirm Administered Dose 80 mg .ROUTE .STK-MED ONE Stop: 05/18/20 14:25 Naloxone HCl (Narcan) Confirm Administered Dose 0.4 mg .ROUTE .STK-MED ONE Stop: 05/19/20 12:53 Neostigmine Methylsulfate (Neostigmine) Confirm Administered Dose 5 mg .ROUTE .STK-MED ONE Stop: 05/19/20 08:56 Non-Formulary Medication (Tap Block, Pharmacy To Dose) 0 ml NERVRT ASDIRECTED [facility] Stop: 05/19/20 16:00 Ondansetron HCl (Zofran) Confirm Administered Dose 4 mg .ROUTE .STK-MED ONE Stop: 05/19/20 08:56 Propofol (Diprivan 20 Ml) Confirm Administered Dose 200 mg .ROUTE .STK-MED ONE Stop: 05/19/20 08:56 Rivastigmine (Exelon) 4.5 mg PO BID [facility] Last Admin: 05/20/20 08:06 Dose: 4.5 mg Documented by: Rocuronium [place] (Zemuron) Confirm Administered Dose 50 mg .ROUTE .STK-MED ONE Stop: 05/19/20 08:56 Sodium Chloride (Saline Flush) 10 ml FLUSH ONETIME ONE Stop: 05/18/20 09:52 Last Admin: 05/18/20 10:20 Dose: 10 ml Documented by: Succinylcholine Chloride (Quelicin) Confirm Administered Dose 200 mg .ROUTE .STK-MED ONE Stop: 05/19/20 08:56 - Exam Quality Assessment: No: Supplemental Oxygen General: Alert, Cooperative, No Acute Distress. No: Oriented Lungs: Normal Respiratory Effort Cardiovascular: Regular Rhythm, Bradycardia GI/Abdominal Exam: Soft, No Distention Extremities: No Pedal Edema Skin: Warm, Dry Psy/Mental Status: Alert, Normal Affect Sepsis Event Note - Evaluation Sepsis Screening Result: No Definite Risk - Focused Exam Vital Signs: Vital Signs Temp Pulse Resp BP Pulse Ox 05/20/20 10:43 36.0 C L 56 L 18 113/47 L 93 L 05/20/20 07:00 36.7 C 48 L 18 113/51 L 92 L Date Exam was Performed: 05/20/20 Time Exam was Performed: 16:30 - Problem List & Annotations (1) Acute appendicitis without peritonitis SNOMED Code(s): 81121166 Code(s): K35.80 - UNSPECIFIED ACUTE APPENDICITIS Status: Acute Current Visit: Yes (2) Symptomatic sinus bradycardia SNOMED Code(s): 992000208 Code(s): R00.1 - BRADYCARDIA, UNSPECIFIED Status: Acute Current Visit: Yes (3) Chronic lower back pain SNOMED Code(s): 173473114 Code(s): M54.5 - LOW BACK PAIN; G89.29 - OTHER CHRONIC PAIN Status: Chronic Current Visit: Yes Qualifiers: Back pain laterality: bilateral Sciatica presence: without sciatica Qualified Code(s): M54.5 - Low back pain; G89.29 - Other chronic pain (4) Alzheimer's dementia SNOMED Code(s): 45877684 Code(s): G30.9 - ALZHEIMER'S DISEASE, UNSPECIFIED; F02.80 - DEMENTIA IN OTH DISEASES CLASSD ELSWHR W/O BEHAVRL DISTURB Status: Chronic Priority: High Current Visit: No Qualifiers: Alzheimer's disease onset: late-onset Dementia behavioral disturbance: without behavioral disturbance Qualified Code(s): G30.1 - Alzheimer's disease with late onset; F02.80 - Dementia in other diseases classified elsewhere without behavioral disturbance - Problem List Review Problem List Initiated/Reviewed/Updated: Yes - My Orders Last 24 Hours: My Active Orders 05/20/20 14:03 TSH ULTRASENSITIVE [CHEM] Routine 05/21/20 05:00 BASIC METABOLIC PANEL,BMP [CHEM] Timed CBC W/O DIFF,HEMOGRAM [HEME] Timed (1) - Plan Plan:: ASSESSMENT AND PLAN - Acute appendicitis-found incidentally with imaging. No perforation or peritonitis and early disease is suspected. Surgical intervention completed 7 2. -Antibiotic coverage with Pip/Tazo -Saline lock IV -Postop care as per surgical team Symptomatic bradycardia-she is on both a beta-josef and donepezil as well as rivastigmine. All 3 of these medications have the potential to lead to bradycardia. The first 2 were discontinued at admission but she had been on the third agent until today. Hopefully stopping this third medication will get her heart rate back to normal. She does not seem to be significantly symptomatic. -Cardiac monitoring -Discontinue beta-josef, donepezil and rivastigmine Chronic lower back pain-she did get her injections 05/18. Pain tolerable. -Pain control -Outpatient follow-up Late onset Alzheimer's disease without behavioral disturbance-no major issues at this time. -Melatonin at bedtime -Discontinue donepezil -Continue memantine Maintenance issues - - DVT prophylaxis -mechanical - GI prophylaxis -PPI - Nutrition -regular diet Disposition -I would anticipate discharge back to the [facility] after the hospital stay Primary care physician -Dr Grant Arellano M.D.
[2020-05-20] MEDS: atorvaSTATin 20 MG Tab PO SCH (20:34)
[2020-05-20] MEDS: Melatonin 3 MG Tab PO SCH (20:34)
[2020-05-20] MEDS: Citalopram 10 MG Tab PO SCH (20:35)
[2020-05-20] MEDS ORDERED: Amitriptyline 25 MG Tab PO SCH (21:00)
[2020-05-20] MEDS ORDERED: Donepezil 10 MG Tab PO SCH (21:00)
[2020-05-21] MEDS: Piperacillin/Tazobactam/Dext 3.375 GM in Premix Bag 1 BAG IV SCH ×2 (04:08→09:23)
[2020-05-21] MEDS: tiZANidine 4 MG Tab PO SCH (08:15)
[2020-05-21] MEDS: Acetaminophen 500 MG Tab PO SCH ×3 (08:15→20:39)
[2020-05-21] MEDS: Furosemide 20 MG Tab PO SCH (08:15)
[2020-05-21] MEDS: Lactobacillus Rhamnosus GG (Probiotic) Cap PO SCH ×2 (08:15→20:39)
[2020-05-21] MEDS: Pantoprazole 40 MG Tab.CR PO SCH (08:15)
[2020-05-21] MEDS: Aspirin 81 MG Tab.EC PO SCH (08:15)
[2020-05-21] MEDS: EXEMESTANE 25 MG PO SCH (08:16)
[2020-05-21] MEDS: Levothyroxine 25 MCG Tab PO SCH (08:16)
[2020-05-21] MEDS: Memantine 10 MG Tab PO SCH ×2 (08:16→20:39)
[2020-05-21] MEDS: Loratadine 10 MG Tab PO SCH (08:17)
--- NOTE | 2020-05-21 11:40 | PCM.PN ---
- General Info Date of Service: 05/21/20 Subjective Update: No acute events overnight. Patient is a little sleepy today. She is complaining of some mild right-sided abdominal pain. No nausea. Not much of an appetite because she has been sleepy. No fevers. Heart rate has remained slow with rates in the 40s and 50s. Functional Status: Reports: Pain Controlled, Tolerating Diet - Review of Systems General: Reports: Weakness Psychiatric: Reports: Other (sleepy ) - Patient Data Vitals - Most Recent: Last Vital Signs Temp 37.1 C 05/21/20 08:18 Pulse 46 L 05/21/20 09:26 Resp 12 05/21/20 09:26 BP 131/58 L 05/21/20 09:26 Pulse Ox 97 05/21/20 09:26 Weight - Most Recent: 74.843 kg I&O - Last 24 Hours: Intake & Output 05/20/20 05/21/20 05/21/20 22:59 06:59 14:59 Intake Total 2336 644 250 Output Total 150 Balance 2186 644 250 Lab Results Last 24 Hours: Laboratory Results - last 24 hr 05/20/20 05/20/20 05/21/20 Range/Units 14:03 16:29 04:05 WBC 8.0 (4.5-11.0) K/uL RBC 3.34 (3.30-5.50) M/uL Hgb 10.3 L (12.0-15.0) g/dL Hct 32.9 L (36.0-48.0) % MCV 99 H (80-98) fL MCH 31 (27-31) pg MCHC 31 L (32-36) % Plt Count 257 (150-400) K/uL Sodium (140-148) mmol/L Potassium (3.6-5.2) mmol/L Chloride (100-108) mmol/L Carbon Dioxide (21-32) mmol/L Anion Gap (5.0-14.0) mmol/L BUN (7-18) mg/dL Creatinine (0.6-1.0) mg/dL Est Cr Clr Drug Dosing mL/min Estimated GFR (MDRD) (>60) Glucose (74-106) mg/dL Calcium (8.5-10.1) mg/dL Free T4 1.35 (0.76-1.46) ng/dL TSH, Ultra Sensitive 0.167 L (0.358-3.740) uIU/mL 05/21/20 Range/Units 04:05 WBC (4.5-11.0) K/uL RBC (3.30-5.50) M/uL Hgb (12.0-15.0) g/dL Hct (36.0-48.0) % MCV (80-98) fL MCH (27-31) pg MCHC (32-36) % Plt Count (150-400) K/uL Sodium 139 L (140-148) mmol/L Potassium 3.5 L (3.6-5.2) mmol/L Chloride 109 H (100-108) mmol/L Carbon Dioxide 27 (21-32) mmol/L Anion Gap 6.5 (5.0-14.0) mmol/L BUN 12 (7-18) mg/dL Creatinine 0.8 (0.6-1.0) mg/dL Est Cr Clr Drug Dosing 47.92 mL/min Estimated GFR (MDRD) > 60 (>60) Glucose 165 H (74-106) mg/dL Calcium 8.1 L (8.5-10.1) mg/dL Free T4 (0.76-1.46) ng/dL TSH, Ultra Sensitive (0.358-3.740) uIU/mL Med Orders - Current: Current Medications Acetaminophen (Tylenol Extra Strength) 1,000 mg PO TID [facility] Last Admin: 05/21/20 08:15 Dose: 1,000 mg Documented by: Aspirin (Halfprin) 81 mg PO DAILY [facility] Last Admin: 05/21/20 08:15 Dose: 81 mg Documented by: Atorvastatin Calcium (Lipitor) 40 mg PO BEDTIME [facility] Last Admin: 05/20/20 20:34 Dose: 40 mg Documented by: Citalopram Hydrobromide (Celexa) 10 mg PO BEDTIME [facility] Last Admin: 05/20/20 20:35 Dose: 10 mg Documented by: Furosemide (Lasix) 20 mg PO DAILY [facility] Last Admin: 05/21/20 08:15 Dose: 20 mg Documented by: Lactobacillus Rhamnosus (Culturelle) 1 cap PO BID [facility] Last Admin: 05/21/20 08:15 Dose: 1 cap Documented by: Levothyroxine Sodium (Levothyroxine) 75 mcg PO DAILY@729 [facility] Last Admin: 05/21/20 08:16 Dose: 75 mcg Documented by: Loratadine (Claritin) 10 mg PO DAILY [facility] Last Admin: 05/21/20 08:17 Dose: 10 mg Documented by: Magnesium Hydroxide (Milk Of Magnesia) 30 ml PO Q12H PRN PRN Reason: Constipation Melatonin (Melatonin) 9 mg PO BEDTIME [facility] Last Admin: 05/20/20 20:34 Dose: 9 mg Documented by: Memantine (Namenda) 10 mg PO BID [facility] Last Admin: 05/21/20 08:16 Dose: 10 mg Documented by: Ondansetron HCl (Zofran Odt) 4 mg PO Q6H PRN PRN Reason: Nausea able to take PO Oxycodone HCl (Oxycodone) 5 mg PO Q4H PRN PRN Reason: Pain (moderate 4-6) Last Admin: 05/20/20 10:51 Dose: 5 mg Documented by: Pantoprazole Sodium (Protonix) 40 mg PO DAILY@729 [facility] Last Admin: 05/21/20 08:15 Dose: 40 mg Documented by: Exemestane (Aromasin () 25mg TabsPom) 0 each PO DAILY [facility] Last Admin: 05/21/20 08:16 Dose: Not Given Documented by: Senna/Docusate Sodium (Senna Plus) 1 tab PO BID PRN PRN Reason: Constipation Tizanidine HCl (Zanaflex) 4 mg PO BID PRN PRN Reason: Muscle Spasm Discontinued Medications Amitriptyline HCl (Elavil) 25 mg PO BEDTIME [facility] Last Admin: 05/20/20 20:40 Dose: 25 mg Documented by: Bisacodyl (Dulcolax) 10 mg PO BID [facility] Last Admin: 05/20/20 20:31 Dose: Not Given Documented by: Bupivacaine HCl (Sensorcaine-Mpf 0.25%) Confirm Administered Dose 10 ml .ROUTE .STK-MED ONE Stop: 05/18/20 14:25 Bupivacaine HCl (Marcaine 0.5%) Confirm Administered Dose 50 ml .ROUTE .STK-MED ONE Stop: 05/19/20 10:10 Last Admin: 05/19/20 11:39 Dose: 20 ml Documented by: Bupivacaine HCl/Epinephrine Bitart (Marcaine 0.5%/Epinephrine 1:200,000) Confirm Administered Dose 50 ml .ROUTE .STK-MED ONE Stop: 05/19/20 06:46 Carvedilol (Coreg) 6.25 mg PO ONETIME ONE Stop: 05/19/20 08:31 Last Admin: 05/19/20 08:17 Dose: 6.25 mg Documented by: Carvedilol (Coreg) 6.25 mg PO BIDMEALS [facility] Ropivacaine 35 ml/Dexamethasone 8 mg/Epinephrine HCl 0.4 mg/ Sodium Chloride 42.6 ml 0 ml NERVRT ASDIRECTED [facility] Last Admin: 05/19/20 12:20 Dose: 80 syringe Documented by: Dexamethasone (Dexamethasone) Confirm Administered Dose 4 mg .ROUTE .STK-MED ONE Stop: 05/19/20 08:56 Docusate Sodium (Colace) 100 mg PO BID [facility] Last Admin: 05/20/20 20:32 Dose: 100 mg Documented by: Donepezil HCl (Aricept) 10 mg PO BEDTIME [facility] Fentanyl (Sublimaze) Confirm Administered Dose 250 mcg .ROUTE .STK-MED ONE Stop: 05/19/20 08:55 Fentanyl (Sublimaze) Confirm Administered Dose 250 mcg .ROUTE .STK-MED ONE Stop: 05/19/20 11:57 Glycopyrrolate (Robinul) Confirm Administered Dose 1 mg .ROUTE .STK-MED ONE Stop: 05/19/20 08:56 Norepinephrine Bitartrate 4 mg (/ Dextrose/Water) 250 mls @ 7.5 mls/hr IV TITRATE [facility]; Protocol Last Admin: 05/18/20 08:59 Dose: 2 mcg/min, 7.5 mls/hr Documented by: Sodium Chloride (Normal Saline) 1,000 mls @ 999 mls/hr IV BOLUS ONE Stop: 05/18/20 10:01 Last Admin: 05/18/20 09:12 Dose: 999 mls/hr Documented by: Piperacillin Sod/Tazobactam (Sod 4.5 gm/ Sodium Chloride) 100 mls @ 100 mls/hr IV STAT ONE Stop: 05/18/20 10:00 Last Admin: 05/18/20 09:20 Dose: 100 mls/hr Documented by: Sodium Chloride (Normal Saline) 100 mls @ 3 mls/sec IV ASDIRECTED [facility] Stop: 05/18/20 10:01 Last Admin: 05/18/20 10:20 Dose: 3 mls/sec Documented by: Sodium Chloride (Normal Saline) 1,000 mls @ 50 mls/hr IV ASDIRECTED [facility] Last Admin: 05/18/20 16:23 Dose: 50 mls/hr Documented by: Piperacillin/Tazobactam/ (Dextrose 3.375 gm/ Premix) 50 mls @ 100 mls/hr IV Q6H [facility] Last Admin: 05/21/20 09:23 Dose: 100 mls/hr Documented by: Potassium Chloride 20 meq/Lidocaine HCl 2 ml/ Sodium Chloride 112 mls @ 50 mls/hr IV Q2H [facility] Stop: 05/19/20 10:59 Last Admin: 05/19/20 08:56 Dose: 50 mls/hr Documented by: Lactated Ringer's (Ringers, Lactated) Confirm Administered Dose 1,000 mls @ as directed .ROUTE .STK-MED ONE Stop: 05/19/20 11:24 Dextrose/Lactated Ringer's (Dextrose 5%-Lactated Ringers) 1,000 mls @ 100 mls/hr IV ASDIRECTED [facility] Last Admin: 05/20/20 02:30 Dose: 100 mls/hr Documented by: Dextrose/Lactated Ringer's (Dextrose 5%-Lactated Ringers) 1,000 mls @ 75 mls/hr IV ASDIRECTED [facility] Potassium Phosphate (Potassium Phos 15 Mmol/250 Ml-Ns) 250 mls @ 85 mls/hr IV Q3H [facility] Stop: 05/20/20 17:27 Last Admin: 05/20/20 16:08 Dose: 85 mls/hr Documented by: Iopamidol (Isovue-300 (61%)) 100 ml IV ONETIME ONE Stop: 05/18/20 09:52 Last Admin: 05/18/20 10:20 Dose: 100 ml Documented by: Lidocaine/Epinephrine (Xylocaine 1% With Epinephrine 1:100,000) Confirm Administered Dose 50 ml .ROUTE .STK-MED ONE Stop: 05/19/20 10:10 Last Admin: 05/19/20 11:40 Dose: 20 ml Documented by: Lorazepam (Ativan) 0.5 mg IVPUSH Q4H PRN PRN Reason: Nausea/Vomiting Last Admin: 05/20/20 02:30 Dose: 0.5 mg Documented by: Meropenem (Merrem) Confirm Administered Dose 500 mg .ROUTE .[facility]-MED ONE Stop: 05/19/20 07:15 Last Admin: 05/19/20 11:40 Dose: 500 mg Documented by: Methylprednisolone Acetate (Depo-Medrol) Confirm Administered Dose 80 mg .ROUTE .STK-MED ONE Stop: 05/18/20 14:25 Naloxone HCl (Narcan) Confirm Administered Dose 0.4 mg .ROUTE .ST-MED ONE Stop: 05/19/20 12:53 Neostigmine Methylsulfate (Neostigmine) Confirm Administered Dose 5 mg .ROUTE .[facility]-MED ONE Stop: 05/19/20 08:56 Non-Formulary Medication (Tap Block, Pharmacy To Dose) 0 ml NERVRT ASDIRECTED [facility] Stop: 05/19/20 16:00 Ondansetron HCl (Zofran) 4 mg IV Q6H PRN PRN Reason: Nausea/Vomiting Ondansetron HCl (Zofran) Confirm Administered Dose 4 mg .ROUTE .ST-MED ONE Stop: 05/19/20 08:56 Propofol (Diprivan 20 Ml) Confirm Administered Dose 200 mg .ROUTE .STK-MED ONE Stop: 05/19/20 08:56 Rivastigmine (Exelon) 4.5 mg PO BID [facility] Last Admin: 05/20/20 08:06 Dose: 4.5 mg Documented by: Rocuronium [place] (Zemuron) Confirm Administered Dose 50 mg .ROUTE .STK-MED ONE Stop: 05/19/20 08:56 Sodium Chloride (Saline Flush) 10 ml FLUSH ASDIRECTED PRN PRN Reason: Keep Vein Open Last Admin: 05/18/20 09:25 Dose: 10 ml Documented by: Sodium Chloride (Saline Flush) 10 ml FLUSH ONETIME ONE Stop: 05/18/20 09:52 Last Admin: 05/18/20 10:20 Dose: 10 ml Documented by: Succinylcholine Chloride (Quelicin) Confirm Administered Dose 200 mg .ROUTE .STK-MED ONE Stop: 05/19/20 08:56 Tizanidine HCl (Zanaflex) 4 mg PO BID [facility] Last Admin: 05/21/20 08:15 Dose: 4 mg Documented by: - Exam Quality Assessment: No: Supplemental Oxygen General: Alert, Cooperative, No Acute Distress, Sedated. No: Oriented Lungs: Normal Respiratory Effort Cardiovascular: Regular Rhythm, Bradycardia GI/Abdominal Exam: Soft, No Distention, Tender (right side) Extremities: No Pedal Edema Psy/Mental Status: Alert, Normal Affect. No: Agitated Sepsis Event Note - Evaluation Sepsis Screening Result: No Definite Risk - Focused Exam Vital Signs: Vital Signs Temp Pulse Resp BP Pulse Ox 05/21/20 09:26 46 L 12 131/58 L 97 05/21/20 08:18 37.1 C 53 L 12 114/54 L 96 05/21/20 03:00 36.8 C 55 L 17 98/49 L 93 L Date Exam was Performed: 05/21/20 Time Exam was Performed: 13:04 - Problem List & Annotations (1) Acute appendicitis without peritonitis SNOMED Code(s): 20004349 Code(s): K35.80 - UNSPECIFIED ACUTE APPENDICITIS Status: Acute Current Visit: Yes (2) Symptomatic sinus bradycardia SNOMED Code(s): 973606766 Code(s): R00.1 - BRADYCARDIA, UNSPECIFIED Status: Acute Current Visit: Yes (3) Chronic lower back pain SNOMED Code(s): 867459377 Code(s): M54.5 - LOW BACK PAIN; G89.29 - OTHER CHRONIC PAIN Status: Chronic Current Visit: Yes Qualifiers: Back pain laterality: bilateral Sciatica presence: without sciatica Qualified Code(s): M54.5 - Low back pain; G89.29 - Other chronic pain (4) Alzheimer's dementia SNOMED Code(s): 81913320 Code(s): G30.9 - ALZHEIMER'S DISEASE, UNSPECIFIED; F02.80 - DEMENTIA IN OTH DISEASES CLASSD ELSWHR W/O BEHAVRL DISTURB Status: Chronic Priority: High Current Visit: No Qualifiers: Alzheimer's disease onset: late-onset Dementia behavioral disturbance: without behavioral disturbance Qualified Code(s): G30.1 - Alzheimer's disease with late onset; F02.80 - Dementia in other diseases classified elsewhere without behavioral disturbance - Problem List Review Problem List Initiated/Reviewed/Updated: Yes - My Orders Last 24 Hours: My Active Orders 05/21/20 11:38 tiZANidine [Zanaflex] 4 mg PO BID PRN - Plan Plan:: ASSESSMENT AND PLAN - Acute appendicitis-found incidentally with imaging. No perforation or peritonitis and early disease is suspected. Surgical intervention completed 05/19. -Antibiotic coverage with Pip/Tazo -Saline lock IV -Postop care as per surgical team Symptomatic bradycardia-she is on both a beta-josef and donepezil as well as rivastigmine. All 3 of these medications have the potential to lead to bradycardia. All 3 medications have been discontinued. She does continue to be bradycardic. -Cardiac monitoring -Discontinue beta-josef, donepezil and rivastigmine -Consider pacemaker if symptomatic and still bradycardic in a day or 2 Somnolence-increased somnolence over the past 2 days. I suspect this is medication related. -Discontinue amitriptyline Chronic lower back pain-she did get her injections 05/18. Pain tolerable. -Pain control -Outpatient follow-up Late onset Alzheimer's disease without behavioral disturbance-no major issues at this time. -Melatonin at bedtime -Discontinue donepezil -Continue memantine Maintenance issues - - DVT prophylaxis -mechanical - GI prophylaxis -PPI - Nutrition -regular diet Disposition -I would anticipate discharge back to the [facility] after the hospital stay Primary care physician -Dr Grant Arellano M.D.
[2020-05-21] MEDS: oxyCODONE 5 MG Tab PO PRN ×2 (11:46→20:39)
[2020-05-21] MEDS: atorvaSTATin 20 MG Tab PO SCH (20:39)
[2020-05-21] MEDS: Melatonin 3 MG Tab PO SCH (20:39)
[2020-05-21] MEDS: Citalopram 10 MG Tab PO SCH (20:39)
[2020-05-22] MEDS: tiZANidine 4 MG Tab PO PRN ×2 (00:37→19:23)
[2020-05-22] MEDS: Memantine 10 MG Tab PO SCH ×2 (08:02→21:22)
[2020-05-22] MEDS: Furosemide 20 MG Tab PO SCH (08:02)
[2020-05-22] MEDS: Levothyroxine 25 MCG Tab PO SCH (08:02)
[2020-05-22] MEDS: Lactobacillus Rhamnosus GG (Probiotic) Cap PO SCH ×2 (08:03→21:22)
[2020-05-22] MEDS: Aspirin 81 MG Tab.EC PO SCH (08:03)
[2020-05-22] MEDS: Loratadine 10 MG Tab PO SCH (08:03)
[2020-05-22] MEDS: Pantoprazole 40 MG Tab.CR PO SCH (08:03)
[2020-05-22] MEDS: Acetaminophen 500 MG Tab PO SCH ×3 (08:03→21:22)
[2020-05-22] MEDS: EXEMESTANE 25 MG PO SCH (11:02)
--- NOTE | 2020-05-22 11:16 | PCM.PN ---
- General Info Date of Service: 05/22/20 Subjective Update: No acute events overnight. Patient is much more alert and interactive today. She is not complaining of any abdominal pain or nausea. She has been tolerating her diet. She does complain of some moderate lower back pain but says this is stable and tolerable. She continues to be pleasantly confused. No fevers. Heart rate has been around 60 with occasional dips. She has been up and walking around in her room without significant orthostatic symptoms. Functional Status: Reports: Pain Controlled, Tolerating Diet - Review of Systems General: Denies: Fever Gastrointestinal: Denies: Abdominal Pain - Patient Data Vitals - Most Recent: Last Vital Signs Temp 36.6 C 05/22/20 07:37 Pulse 43 L 05/22/20 07:37 Resp 12 05/22/20 07:37 BP 138/64 05/22/20 07:37 Pulse Ox 96 05/22/20 07:37 Weight - Most Recent: 74.843 kg I&O - Last 24 Hours: Intake & Output 05/21/20 05/22/20 05/22/20 22:59 06:59 14:59 Intake Total 360 Output Total 400 125 Balance -40 -125 Med Orders - Current: Current Medications Acetaminophen (Tylenol Extra Strength) 1,000 mg PO TID [facility] Last Admin: 05/22/20 08:03 Dose: 1,000 mg Documented by: Aspirin (Halfprin) 81 mg PO DAILY [facility] Last Admin: 05/22/20 08:03 Dose: 81 mg Documented by: Atorvastatin Calcium (Lipitor) 40 mg PO BEDTIME [facility] Last Admin: 05/21/20 20:39 Dose: 40 mg Documented by: Citalopram Hydrobromide (Celexa) 10 mg PO BEDTIME [facility] Last Admin: 05/21/20 20:39 Dose: 10 mg Documented by: Furosemide (Lasix) 20 mg PO DAILY [facility] Last Admin: 05/22/20 08:02 Dose: 20 mg Documented by: Lactobacillus Rhamnosus (Culturelle) 1 cap PO BID [facility] Last Admin: 05/22/20 08:03 Dose: 1 cap Documented by: Levothyroxine Sodium (Levothyroxine) 75 mcg PO DAILY@0730 [facility] Last Admin: 05/22/20 08:02 Dose: 75 mcg Documented by: Loratadine (Claritin) 10 mg PO DAILY [facility] Last Admin: 05/22/20 08:03 Dose: 10 mg Documented by: Magnesium Hydroxide (Milk Of Magnesia) 30 ml PO Q12H PRN PRN Reason: Constipation Melatonin (Melatonin) 9 mg PO BEDTIME [facility] Last Admin: 05/21/20 20:39 Dose: 9 mg Documented by: Memantine (Namenda) 10 mg PO BID [facility] Last Admin: 05/22/20 08:02 Dose: 10 mg Documented by: Ondansetron HCl (Zofran Odt) 4 mg PO Q6H PRN PRN Reason: Nausea able to take PO Oxycodone HCl (Oxycodone) 5 mg PO Q4H PRN PRN Reason: Pain (moderate 4-6) Last Admin: 05/21/20 20:39 Dose: 5 mg Documented by: Pantoprazole Sodium (Protonix) 40 mg PO DAILY@0730 [facility] Last Admin: 05/22/20 08:03 Dose: 40 mg Documented by: Exemestane (Aromasin () 25mg TabsPom) 0 each PO DAILY [facility] Last Admin: 05/22/20 11:02 Dose: Not Given Documented by: Senna/Docusate Sodium (Senna Plus) 1 tab PO BID PRN PRN Reason: Constipation Tizanidine HCl (Zanaflex) 4 mg PO BID PRN PRN Reason: Muscle Spasm Last Admin: 05/22/20 00:37 Dose: 4 mg Documented by: Discontinued Medications Amitriptyline HCl (Elavil) 25 mg PO BEDTIME [facility] Last Admin: 05/20/20 20:40 Dose: 25 mg Documented by: Bisacodyl (Dulcolax) 10 mg PO BID [facility] Last Admin: 05/20/20 20:31 Dose: Not Given Documented by: Bupivacaine HCl (Sensorcaine-Mpf 0.25%) Confirm Administered Dose 10 ml .ROUTE .STK-MED ONE Stop: 05/18/20 14:25 Bupivacaine HCl (Marcaine 0.5%) Confirm Administered Dose 50 ml .ROUTE .STK-MED ONE Stop: 05/19/20 10:10 Last Admin: 05/19/20 11:39 Dose: 20 ml Documented by: Bupivacaine HCl/Epinephrine Bitart (Marcaine 0.5%/Epinephrine 1:200,000) Confirm Administered Dose 50 ml .ROUTE .STK-MED ONE Stop: 05/19/20 06:46 Carvedilol (Coreg) 6.25 mg PO ONETIME ONE Stop: 05/19/20 08:31 Last Admin: 05/19/20 08:17 Dose: 6.25 mg Documented by: Carvedilol (Coreg) 6.25 mg PO BIDMEALS ALBERTO Ropivacaine 35 ml/Dexamethasone 8 mg/Epinephrine HCl 0.4 mg/ Sodium Chloride 42.6 ml 0 ml NERVRT ASDIRECTED [facility] Last Admin: 05/19/20 12:20 Dose: 80 syringe Documented by: Dexamethasone (Dexamethasone) Confirm Administered Dose 4 mg .ROUTE .STK-MED ONE Stop: 05/19/20 08:56 Docusate Sodium (Colace) 100 mg PO BID [facility] Last Admin: 05/20/20 20:32 Dose: 100 mg Documented by: Donepezil HCl (Aricept) 10 mg PO BEDTIME ALBERTO Fentanyl (Sublimaze) Confirm Administered Dose 250 mcg .ROUTE .STK-MED ONE Stop: 05/19/20 08:55 Fentanyl (Sublimaze) Confirm Administered Dose 250 mcg .ROUTE .STK-MED ONE Stop: 05/19/20 11:57 Glycopyrrolate (Robinul) Confirm Administered Dose 1 mg .ROUTE .STK-MED ONE Stop: 05/19/20 08:56 Norepinephrine Bitartrate 4 mg (/ Dextrose/Water) 250 mls @ 7.5 mls/hr IV TITRATE [facility]; Protocol Last Admin: 05/18/20 08:59 Dose: 2 mcg/min, 7.5 mls/hr Documented by: Sodium Chloride (Normal Saline) 1,000 mls @ 999 mls/hr IV BOLUS ONE Stop: 05/18/20 10:01 Last Admin: 05/18/20 09:12 Dose: 999 mls/hr Documented by: Piperacillin Sod/Tazobactam (Sod 4.5 gm/ Sodium Chloride) 100 mls @ 100 mls/hr IV STAT ONE Stop: 05/18/20 10:00 Last Admin: 05/18/20 09:20 Dose: 100 mls/hr Documented by: Sodium Chloride (Normal Saline) 100 mls @ 3 mls/sec IV ASDIRECTED [facility] Stop: 05/18/20 10:01 Last Admin: 05/18/20 10:20 Dose: 3 mls/sec Documented by: Sodium Chloride (Normal Saline) 1,000 mls @ 50 mls/hr IV ASDIRECTED [facility] Last Admin: 05/18/20 16:23 Dose: 50 mls/hr Documented by: Piperacillin/Tazobactam/ (Dextrose 3.375 gm/ Premix) 50 mls @ 100 mls/hr IV Q6H [facility] Last Admin: 05/21/20 09:23 Dose: 100 mls/hr Documented by: Potassium Chloride 20 meq/Lidocaine HCl 2 ml/ Sodium Chloride 112 mls @ 50 mls/hr IV Q2H [facility] Stop: 05/19/20 10:59 Last Admin: 05/19/20 08:56 Dose: 50 mls/hr Documented by: Lactated Ringer's (Ringers, Lactated) Confirm Administered Dose 1,000 mls @ as directed .ROUTE .STK-MED ONE Stop: 05/19/20 11:24 Dextrose/Lactated Ringer's (Dextrose 5%-Lactated Ringers) 1,000 mls @ 100 mls/hr IV ASDIRECTED [facility] Last Admin: 05/20/20 02:30 Dose: 100 mls/hr Documented by: Dextrose/Lactated Ringer's (Dextrose 5%-Lactated Ringers) 1,000 mls @ 75 mls/hr IV ASDIRECTED [facility] Potassium Phosphate (Potassium Phos 15 Mmol/250 Ml-Ns) 250 mls @ 85 mls/hr IV Q3H [facility] Stop: 05/20/20 17:27 Last Admin: 05/20/20 16:08 Dose: 85 mls/hr Documented by: Iopamidol (Isovue-300 (61%)) 100 ml IV ONETIME ONE Stop: 05/18/20 09:52 Last Admin: 05/18/20 10:20 Dose: 100 ml Documented by: Lidocaine/Epinephrine (Xylocaine 1% With Epinephrine 1:100,000) Confirm Administered Dose 50 ml .ROUTE .STK-MED ONE Stop: 05/19/20 10:10 Last Admin: 05/19/20 11:40 Dose: 20 ml Documented by: Lorazepam (Ativan) 0.5 mg IVPUSH Q4H PRN PRN Reason: Nausea/Vomiting Last Admin: 05/20/20 02:30 Dose: 0.5 mg Documented by: Meropenem (Merrem) Confirm Administered Dose 500 mg .ROUTE .STK-MED ONE Stop: 05/19/20 07:15 Last Admin: 05/19/20 11:40 Dose: 500 mg Documented by: Methylprednisolone Acetate (Depo-Medrol) Confirm Administered Dose 80 mg .ROUTE .STK-MED ONE Stop: 05/18/20 14:25 Naloxone HCl (Narcan) Confirm Administered Dose 0.4 mg .ROUTE .STK-MED ONE Stop: 05/19/20 12:53 Neostigmine Methylsulfate (Neostigmine) Confirm Administered Dose 5 mg .ROUTE .STK-MED ONE Stop: 05/19/20 08:56 Non-Formulary Medication (Tap Block, Pharmacy To Dose) 0 ml NERVRT ASDIRECTED [facility] Stop: 05/19/20 16:00 Ondansetron HCl (Zofran) 4 mg IV Q6H PRN PRN Reason: Nausea/Vomiting Ondansetron HCl (Zofran) Confirm Administered Dose 4 mg .ROUTE .STK-MED ONE Stop: 05/19/20 08:56 Propofol (Diprivan 20 Ml) Confirm Administered Dose 200 mg .ROUTE .STK-MED ONE Stop: 05/19/20 08:56 Rivastigmine (Exelon) 4.5 mg PO BID [facility] Last Admin: 05/20/20 08:06 Dose: 4.5 mg Documented by: Rocuronium [place] (Zemuron) Confirm Administered Dose 50 mg .ROUTE .STK-MED ONE Stop: 05/19/20 08:56 Sodium Chloride (Saline Flush) 10 ml FLUSH ASDIRECTED PRN PRN Reason: Keep Vein Open Last Admin: 05/18/20 09:25 Dose: 10 ml Documented by: Sodium Chloride (Saline Flush) 10 ml FLUSH ONETIME ONE Stop: 05/18/20 09:52 Last Admin: 05/18/20 10:20 Dose: 10 ml Documented by: Succinylcholine Chloride (Quelicin) Confirm Administered Dose 200 mg .ROUTE .STK-MED ONE Stop: 05/19/20 08:56 Tizanidine HCl (Zanaflex) 4 mg PO BID [facility] Last Admin: 05/21/20 08:15 Dose: 4 mg Documented by: - Exam Quality Assessment: No: Supplemental Oxygen General: Alert, Cooperative, No Acute Distress. No: Oriented Lungs: Normal Respiratory Effort Cardiovascular: Regular Rate, Regular Rhythm GI/Abdominal Exam: Soft, No Distention Extremities: No Pedal Edema Psy/Mental Status: Alert, Normal Affect Sepsis Event Note - Evaluation Sepsis Screening Result: No Definite Risk - Focused Exam Vital Signs: Vital Signs Temp Pulse Resp BP Pulse Ox 05/22/20 07:37 36.6 C 43 L 12 138/64 96 05/22/20 03:00 60 17 Date Exam was Performed: 05/22/20 Time Exam was Performed: 14:06 - Problem List & Annotations (1) Acute appendicitis without peritonitis SNOMED Code(s): 52764938 Code(s): K35.80 - UNSPECIFIED ACUTE APPENDICITIS Status: Acute Current Visit: Yes (2) Symptomatic sinus bradycardia SNOMED Code(s): 544794719 Code(s): R00.1 - BRADYCARDIA, UNSPECIFIED Status: Acute Current Visit: Yes (3) Chronic lower back pain SNOMED Code(s): 589379738 Code(s): M54.5 - LOW BACK PAIN; G89.29 - OTHER CHRONIC PAIN Status: Chronic Current Visit: Yes Qualifiers: Back pain laterality: bilateral Sciatica presence: without sciatica Quali fied Code(s): M54.5 - Low back pain; G89.29 - Other chronic pain (4) Alzheimer's dementia SNOMED Code(s): 08645178 Code(s): G30.9 - ALZHEIMER'S DISEASE, UNSPECIFIED; F02.80 - DEMENTIA IN OTH DISEASES CLASSD ELSWHR W/O BEHAVRL DISTURB Status: Chronic Priority: High Current Visit: No Qualifiers: Alzheimer's disease onset: late-onset Dementia behavioral disturbance: without behavioral disturbance Qualified Code(s): G30.1 - Alzheimer's disease with late onset; F02.80 - Dementia in other diseases classified elsewhere without behavioral disturbance - Problem List Review Problem List Initiated/Reviewed/Updated: Yes - My Orders Last 24 Hours: My Active Orders 05/21/20 11:38 tiZANidine [Zanaflex] 4 mg PO BID PRN 05/22/20 11:15 Discontinue Telemetry Monitoring [Cardiac Monitoring Discontinue] [RC] Click to Edit Potassium Chloride [Klor-Con M20] 40 meq PO ONETIME ONE - Plan Plan:: ASSESSMENT AND PLAN - Acute appendicitis-found incidentally with imaging. No perforation or peritonitis and early disease is suspected. Surgical intervention completed 05/19. -Antibiotics discontinued -Saline lock IV -Postop care as per surgical team Symptomatic bradycardia-she is on both a beta-josef and donepezil as well as rivastigmine. All 3 of these medications have the potential to lead to bradycardia. All 3 medications have been discontinued. She does continue to be bradycardic though her heart rate does seem to be slowly improving. -Discontinue cardiac monitoring -Discontinue beta-josef, donepezil and rivastigmine -Consider pacemaker if symptomatic and still bradycardic (no indication at this time) Somnolence-increased somnolence over the past 2 days. I suspect this is medication related and is much better today. -Discontinue amitriptyline Chronic lower back pain-she did get her injections 05/18. Pain tolerable. -Pain control -Outpatient follow-up Late onset Alzheimer's disease without behavioral disturbance-no major issues at this time. -Melatonin at bedtime -Discontinue donepezil -Continue memantine Maintenance issues - - DVT prophylaxis -mechanical - GI prophylaxis -PPI - Nutrition -regular diet Disposition -I would anticipate discharge back to the [facility] after the hospital stay, likely tomorrow if stable overnight Primary care physician -Dr Grant Arellano M.D.
[2020-05-22] MEDS ORDERED: Potassium Chloride 20 MEQ Tab.ER PO ONE (11:45)
[2020-05-22] MEDS: oxyCODONE 5 MG Tab PO PRN ×3 (12:10→21:23)
[2020-05-22] MEDS: atorvaSTATin 20 MG Tab PO SCH (21:22)
[2020-05-22] MEDS: Melatonin 3 MG Tab PO SCH (21:22)
[2020-05-22] MEDS: Citalopram 10 MG Tab PO SCH (21:22)
[2020-05-23] MEDS: oxyCODONE 5 MG Tab PO PRN (05:19)
[2020-05-23 05:22] VITALS: BP 146/59; PULSE 61
[2020-05-23] MEDS: Levothyroxine 25 MCG Tab PO SCH (07:21)
[2020-05-23] MEDS: Pantoprazole 40 MG Tab.CR PO SCH (07:21)
--- NOTE | 2020-05-23 08:34 | DISCH ---
DATE OF DISCHARGE: 05/23/2020 ADMISSION DIAGNOSES: Acute appendicitis; bradycardia; hypotension; beta-josef toxicity; symptomatic sinus bradycardia; chronic low back pain; status post breast cancer, left; gait disorder; seizure disorder; Alzheimer's dementia; coronary artery disease; and gastroesophageal reflux disease. DISCHARGE DIAGNOSES: Exploratory laparotomy with partial cecectomy, including overlying appendix for distended, inflamed appendix with no visible tumor. Date of surgery: 05/19/2020. Surgeon: Hector George MD. HISTORY: Daljit Mclean is a 80-year-old female with dementia, who presented to the emergency room at [facility] after she was going to have epidural steroid injections in her back. Her blood pressure readings were systolic in the 50s, and she also was bradycardic and hypotensive. She was given norepinephrine in the hospital, and this did bring up her blood pressure. Prior to coming into the emergency department, she had been more lethargic, weaker, and had several falls. She did not complain of abdominal pain. In complete workup, a CT scan was obtained and showed an acute appendicitis. On 05/19/2020, Daljit had her operation. She had no operative complications. Vital signs remained stable, oral intake adequate, and she was able to be discharged to home on 05/23/2020 without any complications. PHYSICAL EXAMINATION: GENERAL: Daljit Mclean is a 80-year-old female, who is very pleasantly confused. VITAL SIGNS: Height is 5 feet 2.99 inches, weight is 165 pounds, BMI 29. TPR at 0521, 98.8; 61; 16; blood pressure 146/59. HEENT: Negative. NECK: Supple. HEART: Regular rate and rhythm. LUNGS: Clear. ABDOMEN: Aquacel dressings on. Abdominal binder is on. EXTREMITIES: Without peripheral edema. DISPOSITION: Discharged to home. CONDITION: Stable and improving. FOLLOWUP APPOINTMENT: Amy Bates PA-C, on 05/27/2020 at 8:30 a.m. HOME MEDICATIONS: 1. Oxycodone 5 mg every 6 hours p.r.n. pain, #20. 2. Tylenol 1000 mg 3 times a day p.r.n. pain. 3. She is to resume her home medication: a. Elavil 25 mg at bedtime. b. Aspirin 81 mg oral daily. c. Citalopram 10 mg at bedtime. d. Exemestane 25 mg oral daily. e. Furosemide 20 mg oral daily. f. Culturelle 1 capsule oral twice daily. g. Synthroid 75 mcg oral daily. h. Claritin 10 mg oral daily. i. Namenda 28 mg oral daily. j. Multivitamin 1 tablet oral daily. k. Nystatin 1 dose topical daily p.r.n. rash. l. Protonix 40 mg oral daily. m. Rivastigmine 4.5 mg twice daily. n. Senna 8.6 mg oral daily. o. Triamcinolone cream 1 dose topical twice daily. p. Lipitor 40 mg oral at bedtime. q. Aspercreme lidocaine 76.5 g topical 6 times a day. r. Tizanidine 4 mg twice daily. DIET: Usual diet as tolerated. Drink 8 to 10 glasses of water a day. ACTIVITY: No lifting greater than 10 pounds for 6 weeks. Other activity: Walk at least 6 times daily inside your facility. May shower. DISCHARGE INSTRUCTIONS: Notify provider if any fever, increased pain, nausea, or vomiting. Keep site clean and dry. Other incision care is wear abdominal binder for 6 weeks if tolerated. Take off Aquacel dressing in 3 days. SPECIAL INSTRUCTIONS: Use incentive spirometer 10 times every hour while awake. MTDD
[2020-05-23] MEDS: Lactobacillus Rhamnosus GG (Probiotic) Cap PO SCH (08:36)
[2020-05-23] MEDS: Aspirin 81 MG Tab.EC PO SCH (08:36)
[2020-05-23] MEDS: Acetaminophen 500 MG Tab PO SCH (08:36)
[2020-05-23] MEDS: Memantine 10 MG Tab PO SCH (08:37)
[2020-05-23] MEDS: Furosemide 20 MG Tab PO SCH (08:37)
[2020-05-23] MEDS: EXEMESTANE 25 MG PO SCH (08:37)
[2020-05-23] MEDS: Loratadine 10 MG Tab PO SCH (08:37)
--- NOTE | 2020-05-23 14:07 | PN ---
DATE OF SERVICE: 05/21/2020 The patient has been afebrile with stable vital signs. She is moving her bowels fairly often and will discontinue the bowel stimulation at this point. Otherwise, I think we can safely saline lock her. Her oral intake has improved fairly satisfactorily. Continue the present IV antibiotics. The patient lives in a intermediate and will not be able to be discharged until Saturday. Hector George MD /[id number] MTDD
--- NOTE | 2020-05-23 14:23 | PN ---
DATE OF SERVICE: 05/20/2020 The patient has been afebrile with stable vital signs. The plan will be to get switched over to exclusively oral pain medication today, get some bowel stimulation, and restart her pertinent oral medications. We will hopefully be able to get her home tomorrow. We will continue with some bowel stimulation for today. Hector George MD /[id number]
--- NOTE | 2020-05-23 14:26 | PN ---
DATE OF SERVICE: 05/22/2020 The patient has been afebrile with stable vital signs. She remains confused related to her dementia. Otherwise is doing well. We are awaiting her discharge to her residence tomorrow. They do not take patients back on weekends, so we will plan to get her to her [facility] on Saturday. Hector George MD /[id number]
--- NOTE | 2020-05-24 13:55 | OR ---
DATE OF PROCEDURE: 05/19/2020 SURGEON: Hector George MD PREOPERATIVE DIAGNOSIS: Distended appendix with minimal evident periappendiceal inflammation suggestive of possible tumor involvement at or near base of the appendix. POSTOPERATIVE DIAGNOSIS: Distended, slightly inflamed appendix with no visible tumor. OPERATIVE PROCEDURE: Exploratory laparotomy with partial cecectomy, including removal of the overlying appendix ([id number]). ANESTHESIA: General. VOLUNTEER SERVICES SUPERVISOR: Amy Bates PA-C INDICATIONS FOR PROCEDURE: This is a 80-year-old female presenting with some mild sepsis, and after resuscitation, on CT scan, was noted to have a distended appendix. This had little in the way of periappendiceal inflammation. She was tender also in the right lower quadrant, consistent with that area being abnormal. The findings were somewhat concerning for possible appendiceal tumor causing some obstruction of the appendiceal orifice, and in the event of this rupturing laparoscopically, the appendiceal contents might contain tumor cells, which would result in perineal contamination by tumor. Given this, plan is to proceed with a laparotomy, initially going limited, and then, a partial cecectomy in order to remove the cecum and adjacent appendix. If there is gross evidence of tumor, we would then proceed concurrently with a right colectomy. Potential risks of the procedure including bleeding, infection, leaks from various GI tract closures, possibility of tumor that is not curable, as well as the possibility of cardiopulmonary, septic, or hemorrhagic complications leading to were reviewed with the patient's . The patient herself has advanced dementia, so has given informed consent. DETAILS OF PROCEDURE: The patient was taken to the operating room, and after general endotracheal anesthesia was induced, a Bustillo catheter was inserted and the abdomen prepped and draped. A low right subcostal incision, staying fairly lateral, was made and carried down through the full-thickness of the abdominal wall and into the peritoneal cavity. The cecum was then identified, and the appendix was noted to be somewhat adherent down into the area of the upper pelvis. The mesoappendix along this was initially divided with a combination of cautery and CRUZ mesenteric loads. This allowed mobilization of the appendix upward. The distal two thirds of the appendix was quite distended and had some firmness with some localized inflammation. There was no perforation or any signs of periappendiceal abscess. At this point, the mesoappendix was fully divided. The cecum underlying the appendix was then divided with the CRUZ stapler, removing the cecum around the appendiceal base, along with the appendix. Off the field, the area was opened, and there did not appear to be any evidence of tumor in the lumen of the cecum or appendix, and at that point, a decision was made to proceed with no further resection. At this point, the cecal staple line was reinforced with 3-0 Vicryl seromuscular stitch, along with fibrin sealant, and omentum placed over that. The abdomen was irrigated with meropenem-containing saline solution. The incision was closed with 2 fascial layers with #2 Vicryl stitch, subcutaneous tissue with layers of 3-0 and 4-0 Vicryl stitch deep and more superficially, and then missy for the skin. A dressing was applied. The patient was taken to the recovery room in satisfactory condition. Prior to closure, the patient had transversus abdominis plane blocks; both of these placed on the right side lateral to the incision, and the incision itself was anesthetized with 0.5% Marcaine mixed with lidocaine. Physician print shop assistant, Amy Bates, played an essential role in assisting in this case, helping to position the patient, retract structures as needed, as well as suturing and cutting sutures when indicating. Her presence improved patient's safety and decreased operative time. Hector George MD /[id number] MTDD
== END 2020-05-23 09:52 | DRG 331 ==
LOC: JP.ED 08:38 → JP.MS 14:02
PROVIDERS: ADMIT Internal Medicine; ATTEND Internal Medicine
PROC: 0DTJ0ZZ Resection of Appendix, Open Approach (ICD-10-PCS; principal; 2020-05-19)
PROC: 0DBH0ZZ Excision of Cecum, Open Approach (ICD-10-PCS; 2020-05-19)
DX: T44.7X1A Poisoning by beta-adrenoreceptor antagonists, accidental (unintentional), initial encounter (principal); K35.80 Unspecified acute appendicitis; G89.29 Other chronic pain; K37 Unspecified appendicitis; M54.5 Low back pain; G30.1 Alzheimer's disease with late onset; F02.80 Dementia in other diseases classified elsewhere, unspecified severity, without behavioral disturbance, psychotic disturbance, mood disturbance, and anxiety; R00.1 Bradycardia, unspecified; I95.9 Hypotension, unspecified; K21.9 Gastro-esophageal reflux disease without esophagitis; R91.1 Solitary pulmonary nodule; K57.90 Diverticulosis of intestine, part unspecified, without perforation or abscess without bleeding; T46.1X5A Adverse effect of calcium-channel blockers, initial encounter; Z87.19 Personal history of other diseases of the digestive system; H54.7 Unspecified visual loss; I25.10 Atherosclerotic heart disease of native coronary artery without angina pectoris; E78.00 Pure hypercholesterolemia, unspecified; G30.9 Alzheimer's disease, unspecified; J44.9 Chronic obstructive pulmonary disease, unspecified; M54.9 Dorsalgia, unspecified; M79.7 Fibromyalgia; F41.9 Anxiety disorder, unspecified; Z11.59 Encounter for screening for other viral diseases; F32.9 Major depressive disorder, single episode, unspecified; E03.9 Hypothyroidism, unspecified; Z98.51 Tubal ligation status; R29.6 Repeated falls; Z79.899 Other long term (current) drug therapy; Z85.3 Personal history of malignant neoplasm of breast; Z79.890 Hormone replacement therapy; Z79.82 Long term (current) use of aspirin; Z98.49 Cataract extraction status, unspecified eye; I25.2 Old myocardial infarction; Z87.11 Personal history of peptic ulcer disease; Z95.5 Presence of coronary angioplasty implant and graft; Z87.440 Personal history of urinary (tract) infections; Z90.12 Acquired absence of left breast and nipple; Z87.891 Personal history of nicotine dependence; Z86.74 Personal history of sudden cardiac arrest
CPT/HCPCS: 36415; 70450 ×2; 71260 ×2; 74177 ×2; 80053; 82803; 83605; 83690; 84484; 85027; 85610; 93005; 96365; 96366; 96368; 99285; J2543; J7030; J7050 ×2; J7060; Q9967; 51798; 80048; 83735; 83880; 84100; 84439; 84443; 93010; A9270-GY; J0171; J0330; J1040; J1100; J2001; J2060; J2185; J2310; J2405; J2704; J2710; J2795; J3010; J3480; J3490; J7120; J7121; U0002

== ENCOUNTER 2020-10-24 11:19 | Inpatient (IN) | payer MEDICARE, MEDICAID ==
[2020-10-24] MEDS ORDERED: Sodium Chloride 0.9% 10 ML Syringe FLUSH PRN ×2 (11:25→14:32)
--- NOTE | 2020-10-24 11:29 | EDM.PDOC ---
ED HPI GENERAL MEDICAL PROBLEM - General Stated Complaint: [facility] Time Seen by Provider: 10/24/20 11:19 Source of Information: Reports: EMS, Prison Records History Limitations: Reports: Altered Mental Status (alzheimer's dementia) - History of Present Illness INITIAL COMMENTS - FREE TEXT/NARRATIVE: She presents to the emergency room from local assisted living via EMS report from EMS is that patient was on the phone with her with a sudden loss in contact with her he then contacted assisted living facility and upon their arrival to her room she was found on the floor unconscious onto ported that she was unresponsive for approximately 20 minutes EMS was called and upon EMS arrival she was noted to be responsive and alert. Level to the emergency room patient is alert attempting to cover herself up she is noted to have evidence of abrasion from her recent fall on her facial area is unable to recall exact event secondary to her known dementia history is limited as well as there is no review of systems available PMH-- Alzheimer's coronary artery disease anxiety disorder dyslipidemia COPD GERD hypothyroidism fibromyalgia seizure disorder low back pain gait abnormality diastolic congestive heart failure and allergic rhinitis Meds--Aminofen aspirin multivitamin Coreg Lasix and thyroid loratadine triamcinolone cream acidophilus baclofen Lipitor Aricept Aspercreme weekly nystatin powder senna POLST paperwork provided from [facility]--full code Onset: Today, Sudden Onset Date: 10/24/20 - Related Data Allergies Allergy/AdvReac Type Severity Reaction Status Date / Time No Known Allergies Allergy Verified 01/25/20 20:26 Home Meds: Home Meds Levothyroxine [Synthroid] 75 mcg PO ACBRK 06/15/14 [History] Memantine HCl [Namenda] 28 mg PO DAILY 06/15/14 [History] Aspirin [Halfprin] 81 mg PO DAILY 07/23/14 [History] atorvaSTATin [Lipitor] 40 mg PO BEDTIME 02/11/15 [History] Citalopram [Citalopram HBr] 10 mg PO DAILY 08/19/15 [History] Exemestane [Aromasin] 25 mg PO DAILY 09/26/18 [History] Multivit,Tx with Iron,Minerals [Therems-M] 1 tab PO DAILY 09/26/18 [History] Acetaminophen [Tylenol] 650 mg PO TID 12/07/18 [History] Furosemide 20 mg PO DAILY 11/01/19 [History] Loratadine [Claritin] 10 mg PO DAILY 11/01/19 [History] Sennosides [Senna] 8.6 mg PO DAILY PRN 11/01/19 [History] Triamcinolone Acetonide [Triamcinolone Acetonide 0.1% Crm] 1 dose TOP BID 02/18/20 [History] Lactobacillus Rhamnosus GG [Culturelle] 1 cap PO BID #60 cap 02/19/20 [Rx] Nystatin 1 dose TOP DAILY PRN 02/19/20 [History] lidocaine HCL [Aspercreme Lidocaine] 76.5 gm TP ASDIRECTED 05/18/20 [History] Baclofen 5 mg PO BID 10/24/20 [History] Donepezil HCl [Aricept] 23 mg PO BEDTIME 10/24/20 [History] Exemestane [Aromasin] 25 mg PO DAILY 10/24/20 [History] Multivitamins/Min/Ca/FA/Iron [Thera-M] 1 tab PO DAILY 10/24/20 [History] Pantoprazole Sodium [Protonix] 40 mg PO DAILY 10/24/20 [History] carvediloL [Carvedilol] 3.125 mg PO BID 10/24/20 [History] oxyCODONE 5 mg PO TID PRN 10/24/20 [History] Past Medical History HEENT History: Reports: Cataract, Impaired Vision Other HEENT History: macular edema Cardiovascular History: Reports: CAD, High Cholesterol, [place], Stents, Syncope Respiratory History: Reports: Bronchitis, Recurrent, COPD, SOB Other Respiratory History: lung nodules Gastrointestinal History: Reports: Bowel Obstruction, Diverticulosis, Gastritis, GI Bleed, PUD Genitourinary History: Reports: UTI, Recurrent INDUSTRIAL ENGINEERING MANAGER History: Reports: , Other (See Below) Other INDUSTRIAL ENGINEERING MANAGER History: breast lumpectomy Musculoskeletal History: Reports: Back Pain, Chronic, Fracture, Fibromyalgia Neurological History: Reports: Alzheimers Disease, Seizure Other Neuro History: dementia Psychiatric History: Reports: Alzheimers Disease, Anxiety, Dementia, Depression, Suicide Attempt, Suicidal Ideation Other Psychiatric History: Dementia Endocrine/Metabolic History: Reports: Hypothyroidism, Other (See Below) Other Endocrine/Metabolic History: thyroid disease Hematologic History: Reports: Blood Transfusion(s), Other (See Below) Other Hematologic History: Serum antibody Anti-D Immunologic History: Reports: None Oncologic (Cancer) History: Reports: Breast Dermatologic History: Reports: Eczema - Infectious Disease History Infectious Disease History: Reports: Chicken Pox, Measles, Mumps Other Infectious Disease History: polio - Past Surgical History Head Surgeries/Procedures: Reports: None HEENT Surgical History: Reports: Cataract Surgery, Eye Surgery, Laser Surgery Cardiovascular Surgical History: Reports: Coronary Artery Stent, Vascular Surgery GI Surgical History: Reports: Colonoscopy, EGD, Hernia Repair/Other, Small Bowel, Other (See Below) Other GI Surgeries/Procedures: three bleeding ulcers 10/2017 Female Surgical History: Reports: Breast Biopsy, Mastectomy, Tubal Ligation, Other (See Below) Other Female Surgeries/Procedures: left side mastectomy Musculoskeletal Surgical History: Reports: Carpal Tunnel, Other (See Below) Other Musculoskeletal Surgeries/Procedures:: ring finger surgery Oncologic Surgical History: Reports: Lumpectomy, Mastectomy, Other (See Below) Other Oncologic Surgeries/Procedures: Left breast Social & Family History - Family History Family Medical History: Unobtainable - Caffeine Use Caffeine Use: Reports: None - Living Situation & Occupation Living situation: Reports: , Extended Care Facility Occupation: Disabled (lives at [facility] Care Unit for 3 years, lives [place] of [place] at [facility], has 3 Daughters all live in [place].) ED ROS GENERAL - Review of Systems Review Of Systems: Unable To Obtain Reason Not Obtained: known dementia--alzheimer's ED EXAM, GENERAL - Physical Exam Exam: See Below General Appearance: Alert, No Apparent Distress Eye Exam: Bilateral Eye: EOMI, Normal Inspection, PERRL (pupils 2-3mm) Ears: Normal External Exam, Hearing Grossly Normal Ear Exam: Right Ear: TM normal (left noted to have dry cerumen in canal/occludes TM visualization) Nose: Normal Inspection. No: No Blood, Nasal Deformity Throat/Mouth: Normal Inspection, Normal Lips, Normal Oropharynx, Normal Voice, No Airway Compromise Head: Normocephalic Neck: Normal Inspection, Supple, Non-Tender, Full Range of Motion Respiratory/Chest: No Respiratory Distress, Lungs Clear, Normal Breath Sounds, No Accessory Muscle Use, Chest Non-Tender Cardiovascular: Normal Peripheral Pulses, Regular Rate, Rhythm, No Edema, No Murmur Peripheral Pulses: 2+: Radial (L), Dorsalis Pedis (L), Dorsalis Pedis (R) GI/Abdominal: Normal Bowel Sounds, Soft, Non-Tender, No Distention (Female) Exam: Deferred Rectal (Female) Exam: Deferred Back Exam: Other (noted thoracic kyphosis; no posterior abrasions/eccymosis or evidence of injury). No: Vertebral Tenderness Extremities: Normal Inspection, Normal Range of Motion, Non-Tender, No Pedal Edema, Normal Capillary Refill Neurological: Alert, CN II-XII Intact (as able to test to patient understanding). No: Oriented (patient has known Alzheimer's Dementia--when ask her age states she's 23, she states she does not know where she is or what city this is) Psychiatric: Other (patient cooperative & normal behavior for alzheimer dementia) Skin Exam: Warm, Dry, Normal Color, Other (has noted facial abrasion 3 x 2.5 cm left lateral cheek) #1 Interpretation EKG Date: 10/24/20 Time: 11:42 (read by physician at 1143) Rhythm: NSR Rate (Beats/Min): 57 (sinus eric) Delta: Normal P-Wave: Present (AK-150) QRS: Normal (low voltage precordial; QRS-99) ST-T: Normal QT: Normal (QT/QT-474/462) EKG Interpretation Comments: normal EKG Course - Vital Signs Text/Narrative:: 1214--labs, rad, ekg have been reviewed. noted for mild elevation of lactic acid otherwise no acute findings of concern. UA is pending/requested CALL CENTER MANAGER to obtain via I/O cath. will continue to monitor at this time for any changes 1307--UA returned, noted for UTI. will begin IV ABX and call Hospitalist for admission. significant other at bedside, d/w him today's ER findings and plan of care a this time. CALL CENTER MANAGER called [facility] for COVID test date--Sep tested/re turned 27th as positive (she is now 14 days out from initial test date) 1312--call placed/recieved call back from Dr Mendoza, Hospitalist. case was discussed and he accepts for admission at this time Last Recorded V/S: Last Vital Signs Temp 97.8 F 10/24/20 11:24 Pulse 57 L 10/24/20 12:57 Resp 14 10/24/20 12:34 BP 113/47 L 10/24/20 12:57 Pulse Ox 98 10/24/20 12:00 - Orders/Labs/Meds Orders: Active Orders 24 hr Category Date Time Status EKG Documentation Completion [RC] ASDIRECTED Care 10/24/20 11:26 Active CULTURE BLOOD [BC] Urgent Lab 10/24/20 12:58 Ordered CULTURE BLOOD [BC] Urgent Lab 10/24/20 12:58 Ordered CULTURE URINE [RM] Stat Lab 10/24/20 12:57 Ordered Sodium Chloride 0.9% [Normal Saline] 1,000 ml Med 10/24/20 13:00 Ordered IV ASDIRECTED Sodium Chloride 0.9% [Saline Flush] Med 10/24/20 11:25 Active 10 ml FLUSH ASDIRECTED PRN cefTRIAXone [Rocephin] 1 gm Med 10/24/20 12:56 Ordered Sodium Chloride 0.9% [Normal Saline] 50 ml IV ONETIME Blood Culture x2 Reflex Set [OM.PC] Urgent Oth 10/24/20 12:57 Ordered Saline Lock Insert [OM.PC] Routine Oth 10/24/20 11:25 Ordered EKG 12 Lead [EK] Routine Ther 10/24/20 11:25 Ordered Medication Orders Ceftriaxone Sodium 1 gm/ (Sodium Chloride) 50 mls @ 100 mls/hr IV ONETIME ONE Stop: 10/24/20 13:25 Sodium Chloride (Normal Saline) 1,000 mls @ 125 mls/hr IV ASDIRECTED ALBERTO Sodium Chloride (Saline Flush) 10 ml FLUSH ASDIRECTED PRN PRN Reason: Keep Vein Open Last Admin: 10/24/20 11:54 Dose: 10 ml Documented by: NICKY Labs: Laboratory Tests 10/24/20 10/24/20 10/24/20 Range/Units 11:25 11:25 11:25 WBC (4.5-11.0) K/uL RBC (3.30-5.50) M/uL Hgb (12.0-15.0) g/dL Hct (36.0-48.0) % MCV (80-98) fL MCH (27-31) pg MCHC (32-36) % Plt Count (150-400) K/uL Neut % (Auto) (36-66) % Lymph % (Auto) (24-44) % Cook % (Auto) (2-6) % Eos % (Auto) (2-4) % Baso % (Auto) (0-1) % Sodium 145 (140-148) mmol/L Potassium 3.9 (3.6-5.2) mmol/L Chloride 107 (100-108) mmol/L Carbon Dioxide 30 (21-32) mmol/L Anion Gap 7.8 (5.0-14.0) mmol/L BUN 19 H D (7-18) mg/dL Creatinine 1.1 H (0.6-1.0) mg/dL Est Cr Clr Drug Dosing 34.87 mL/min Estimated GFR (MDRD) 48 L (>60) Glucose 70 L (74-106) mg/dL Lactic Acid 2.7 H (0.4-2.0) mmol/L Calcium 8.4 L (8.5-10.1) mg/dL Total Bilirubin 0.7 D (0.2-1.0) mg/dL AST 34 (15-37) U/L ALT 30 (12-78) U/L Alkaline Phosphatase 166 H (46-116) U/L Ammonia 23 (11-32) mmol/L Troponin I (0.000-0.056) ng/mL Total Protein 6.3 L (6.4-8.2) g/dL Albumin 2.0 L (3.4-5.0) g/dL Globulin 4.3 H (2.3-3.5) g/dL Albumin/Globulin Ratio 0.5 L (1.2-2.2) Urine Color (YELLOW) Urine Appearance (CLEAR) Urine pH (5.0-8.0) Ur Specific [place] (1.008-1.030) Urine Protein (NEGATIVE) mg/dL Urine Glucose (UA) (NEGATIVE) mg/dL Urine Ketones (NEGATIVE) mg/dL Urine Occult Blood (NEGATIVE) Urine Nitrite (NEGATIVE) Urine Bilirubin (NEGATIVE) Urine Urobilinogen (0.2-1.0) EU/dL Ur Leukocyte Esterase (NEGATIVE) Urine RBC (0-5) Urine WBC (0-5) Ur Epithelial Cells Amorphous Sediment Urine Bacteria Urine Mucus 10/24/20 10/24/20 10/24/20 Range/Units 11:27 11:29 12:23 WBC 7.9 (4.5-11.0) K/uL RBC 4.16 (3.30-5.50) M/uL Hgb 12.5 D (12.0-15.0) g/dL Hct 40.2 (36.0-48.0) % MCV 97 (80-98) fL MCH 30 (27-31) pg MCHC 31 L (32-36) % Plt Count 428 H (150-400) K/uL Neut % (Auto) 66 (36-66) % Lymph % (Auto) 24 (24-44) % Cook % (Auto) 8 H (2-6) % Eos % (Auto) 3 (2-4) % Baso % (Auto) 0 (0-1) % Sodium (140-148) mmol/L Potassium (3.6-5.2) mmol/L Chloride (100-108) mmol/L Carbon Dioxide (21-32) mmol/L Anion Gap (5.0-14.0) mmol/L BUN (7-18) mg/dL Creatinine (0.6-1.0) mg/dL Est Cr Clr Drug Dosing mL/min Estimated GFR (MDRD) (>60) Glucose (74-106) mg/dL Lactic Acid (0.4-2.0) mmol/L Calcium (8.5-10.1) mg/dL Total Bilirubin (0.2-1.0) mg/dL AST (15-37) U/L ALT (12-78) U/L Alkaline Phosphatase (46-116) U/L Ammonia (11-32) mmol/L Troponin I 0.032 (0.000-0.056) ng/mL Total Protein (6.4-8.2) g/dL Albumin (3.4-5.0) g/dL Globulin (2.3-3.5) g/dL Albumin/Globulin Ratio (1.2-2.2) Urine Color Yellow (YELLOW) Urine Appearance Cloudy A (CLEAR) Urine pH 8.5 H (5.0-8.0) Ur Specific [place] 1.020 (1.008-1.030) Urine Protein 30 H (NEGATIVE) mg/dL Urine Glucose (UA) Negative (NEGATIVE) mg/dL Urine Ketones Negative (NEGATIVE) mg/dL Urine Occult Blood Trace-intact H (NEGATIVE) Urine Nitrite Positive H (NEGATIVE) Urine Bilirubin Negative (NEGATIVE) Urine Urobilinogen 1.0 (0.2-1.0) EU/dL Ur Leukocyte Esterase Moderate H (NEGATIVE) Urine RBC 0-5 (0-5) Urine WBC 20-30 H (0-5) Ur Epithelial Cells Not seen Amorphous Sediment Not seen Urine Bacteria Many Urine Mucus Moderate Meds: Medications Generic Name Dose Route Start Last Admin Trade Name Freq PRN Reason Stop Dose Admin Ceftriaxone Sodium 1 gm/ 50 mls @ 100 mls/hr 10/24/20 12:56 Sodium Chloride IV 10/24/20 13:25 ONETIME ONE Sodium Chloride 1,000 mls @ 125 mls/hr 10/24/20 13:00 Normal Saline IV ASDIRECTED ALBERTO Sodium Chloride 10 ml 10/24/20 11:25 10/24/20 11:54 Saline Flush FLUSH 10 ml ASDIRECTED PRN Administration Keep Vein Open - Radiology Interpretation Free Text/Narrative:: 1154--CT head noncontrast preliminary reading no acute findings, final radiology reading pending. 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 Chest final radiology reading--no acute process Departure - Departure Time of Disposition: 13:13 Disposition: Admitted As Inpatient 68 Clinical Impression: Change in mental status, Fall at care home, History of 2019 novel coronavirus disease (COVID-19) UTI (urinary tract infection) Qualifiers: Urinary tract infection type: acute cystitis Hematuria presence: without hematuria Qualified Code(s): N30.00 - Acute cystitis without hematuria Alzheimer's dementia Qualifiers: Alzheimer's disease onset: late-onset Dementia behavioral disturbance: without behavioral disturbance Qualified Code(s): G30.1 - Alzheimer's disease with late onset - Discharge Information Referrals: PCP,None [Ordering Only Provider] - Sepsis Event Note (ED) - Focused Exam Vital Signs: Vital Signs Temp Pulse Resp BP Pulse Ox 10/24/20 12:57 57 L 113/47 L 10/24/20 12:34 55 L 14 98/57 L 10/24/20 12:00 54 L 16 106/49 L 98 10/24/20 11:24 97.8 F 60 15 123/69 94 L - My Orders Last 24 Hours: My Active Orders 10/24/20 11:25 Sodium Chloride 0.9% [Saline Flush] 10 ml FLUSH ASDIRECTED PRN Saline Lock Insert [OM.PC] Routine EKG 12 Lead [EK] Routine 10/24/20 11:26 EKG Documentation Completion [RC] ASDIRECTED 10/24/20 12:56 cefTRIAXone [Rocephin] 1 gm Sodium Chloride 0.9% [Normal Saline] 50 ml IV ONETIME 10/24/20 12:57 CULTURE URINE [RM] Stat Blood Culture x2 Reflex Set [OM.PC] Urgent 10/24/20 12:58 CULTURE BLOOD [BC] Urgent CULTURE BLOOD [BC] Urgent 10/24/20 13:00 Sodium Chloride 0.9% [Normal Saline] 1,000 ml IV ASDIRECTED - Assessment/Plan Last 24 Hours: My Active Orders 10/24/20 11:25 Sodium Chloride 0.9% [Saline Flush] 10 ml FLUSH ASDIRECTED PRN Saline Lock Insert [OM.PC] Routine EKG 12 Lead [EK] Routine 10/24/20 11:26 EKG Documentation Completion [RC] ASDIRECTED 10/24/20 12:56 cefTRIAXone [Rocephin] 1 gm Sodium Chloride 0.9% [Normal Saline] 50 ml IV ONETIME 10/24/20 12:57 CULTURE URINE [RM] Stat Blood Culture x2 Reflex Set [OM.PC] Urgent 10/24/20 12:58 CULTURE BLOOD [BC] Urgent CULTURE BLOOD [BC] Urgent 10/24/20 13:00 Sodium Chloride 0.9% [Normal Saline] 1,000 ml IV ASDIRECTED
--- NOTE | 2020-10-24 11:55 | CT ---
Head wo Cont CLINICAL HISTORY: Possible seizure, dementia COMPARISON: May 2020 TECHNIQUE: Transverse scans were obtained from the base of the skull through the vertex without IV contrast on a multislice, multidetector CT scanner. Auto dosage reduction and iterative reconstruction techniques employed. FINDINGS: There is a small hypoechoic focus in the right the basal ganglia anteriorly involving the anterior limb of the internal capsule. This is very similar to the July study. There is a wedge-shaped focus of previous ischemic infarct in the left the posterior parietal lobe. This is unchanged from prior study There is some vague lucency in the periventricular and subcortical white matter. There is no mass effect, hemorrhage, or extraaxial collection. The basal cisterns and sulci over the convexities are prominent. The ventricles are normal for age. There is some hard plaque in the carotid siphons IMPRESSION: Previous ischemic infarcts in the right basal ganglia and left posterior parietal lobes unchanged from May 2020 Age-related atrophic change Chronic ischemic microvascular change
--- NOTE | 2020-10-24 11:58 | CR ---
CHEST: Portable 10/24/2020 11:45 AM CLINICAL HISTORY:Possible seizure, dementia COMPARISON:CT chest May 2020 FINDINGS: The heart and pulmonary vascularity appear normal. No infiltrate effusion or pneumothorax is seen. There is moderate atheromatous change in the aorta with calcification and tortuosity. Some dilatation of the descending thoracic aorta is not excluded. IMPRESSION: No acute cardiac pulmonary process Moderate atheromatous changes in the aorta
[2020-10-24] MEDS ORDERED: cefTRIAXone 1 GM in Sodium Chloride 0.9% 50 ML IV ONE (12:56)
[2020-10-24] MEDS ORDERED: Sodium Chloride 0.9% 1,000 ML IV SCH ×2 (13:00→14:32)
--- NOTE | 2020-10-24 13:21 | PCM.HP.2 ---
H&P History of Present Illness - General Date of Service: 10/24/20 Admit Problem/Dx: Admission Diagnosis/Problem Admission Diagnosis/Problem Syncope Source of Information: Family, Old Records, Provider, RN Notes Reviewed. No: Patient History Limitations: Reports: Altered Mental Status (Severe dementia) - History of Present Illness Initial Comments - Free Text/Narative: Ms. Mclean is a 80-year-old woman who was admitted through the emergency department with weakness and a syncopal episode secondary to urinary tract infection and dehydration. She is unable to provide a meaningful history concerning recent symptoms or review of systems because of her severe dementia. Her significant other is present today he reports that he was talking to her on the phone when he heard her fall. Staff at the assisted living report. Of unresponsiveness lasting several minutes. She was brought to the emergency department for evaluation. Urinalysis shows evidence of underlying infection. There is a mild elevation in lactic acid level, likely secondary to dehydration. No other evidence of significant sepsis or other infection. - Related Data Allergies/Adverse Reactions: Allergies Allergy/AdvReac Type Severity Reaction Status Date / Time No Known Allergies Allergy Verified 01/25/20 20:26 Home Medications: Home Meds Levothyroxine [Synthroid] 75 mcg PO ACBRK 06/15/14 [History] Memantine HCl [Namenda] 28 mg PO DAILY 06/15/14 [History] Aspirin [Halfprin] 81 mg PO DAILY 07/23/14 [History] atorvaSTATin [Lipitor] 40 mg PO BEDTIME 02/11/15 [History] Citalopram [Citalopram HBr] 10 mg PO DAILY 08/19/15 [History] Exemestane [Aromasin] 25 mg PO DAILY 09/26/18 [History] Multivit,Tx with Iron,Minerals [Therems-M] 1 tab PO DAILY 09/26/18 [History] Acetaminophen [Tylenol] 650 mg PO TID 12/07/18 [History] Furosemide 20 mg PO DAILY 11/01/19 [History] Loratadine [Claritin] 10 mg PO DAILY 11/01/19 [History] Sennosides [Senna] 8.6 mg PO DAILY PRN 11/01/19 [History] Triamcinolone Acetonide [Triamcinolone Acetonide 0.1% Crm] 1 dose TOP BID 02/18/20 [History] Lactobacillus Rhamnosus GG [Culturelle] 1 cap PO BID #60 cap 02/19/20 [Rx] Nystatin 1 dose TOP DAILY PRN 02/19/20 [History] lidocaine HCL [Aspercreme Lidocaine] 76.5 gm TP ASDIRECTED 05/18/20 [History] Baclofen 5 mg PO BID 10/24/20 [History] Donepezil HCl [Aricept] 23 mg PO BEDTIME 10/24/20 [History] Exemestane [Aromasin] 25 mg PO DAILY 10/24/20 [History] Multivitamins/Min/Ca/FA/Iron [Thera-M] 1 tab PO DAILY 10/24/20 [History] Pantoprazole Sodium [Protonix] 40 mg PO DAILY 10/24/20 [History] carvediloL [Carvedilol] 3.125 mg PO BID 10/24/20 [History] oxyCODONE 5 mg PO TID PRN 10/24/20 [History] Past Medical History HEENT History: Reports: Cataract, Impaired Vision Other HEENT History: macular edema Cardiovascular History: Reports: CAD, High Cholesterol, [place], Stents, Syncope Respiratory History: Reports: Bronchitis, Recurrent, COPD, SOB Other Respiratory History: lung nodules Gastrointestinal History: Reports: Bowel Obstruction, Diverticulosis, Gastritis, GI Bleed, PUD Genitourinary History: Reports: UTI, Recurrent CYLINDER CHECKER History: Reports: , Other (See Below) Other OB/BYN History: breast lumpectomy Musculoskeletal History: Reports: Back Pain, Chronic, Fracture, Fibromyalgia Neurological History: Reports: Alzheimers Disease, Seizure Other Neuro History: dementia Psychiatric History: Reports: Alzheimers Disease, Anxiety, Dementia, Depression, Suicide Attempt, Suicidal Ideation Other Psychiatric History: Dementia Endocrine/Metabolic History: Reports: Hypothyroidism, Other (See Below) Other Endocrine/Metabolic History: thyroid disease Hematologic History: Reports: Blood Transfusion(s), Other (See Below) Other Hematologic History: Serum antibody Anti-D Immunologic History: Reports: None Oncologic (Cancer) History: Reports: Breast Dermatologic History: Reports: Eczema - Infectious Disease History Infectious Disease History: Reports: Chicken Pox, Measles, Mumps Other Infectious Disease History: polio - Past Surgical History Head Surgeries/Procedures: Reports: None HEENT Surgical History: Reports: Cataract Surgery, Eye Surgery, Laser Surgery Cardiovascular Surgical History: Reports: Coronary Artery Stent, Vascular Surgery GI Surgical History: Reports: Colonoscopy, EGD, Hernia Repair/Other, Small Bowel, Other (See Below) Other GI Surgeries/Procedures: three bleeding ulcers 10/2017 Female Surgical History: Reports: Breast Biopsy, Mastectomy, Tubal Ligation, Other (See Below) Other Female Surgeries/Procedures: left side mastectomy Musculoskeletal Surgical History: Reports: Carpal Tunnel, Other (See Below) Other Musculoskeletal Surgeries/Procedures:: ring finger surgery Oncologic Surgical History: Reports: Lumpectomy, Mastectomy, Other (See Below) Other Oncologic Surgeries/Procedures: Left breast Social & Family History - Family History Family Medical History: Unobtainable - Tobacco Use Tobacco Use Status *Q: Never Tobacco User - Caffeine Use Caffeine Use: Reports: None - Living Situation & Occupation Living situation: Reports: , Extended Care Facility Occupation: Disabled (lives at Memory Care Unit for 3 years, lives [place] of [place] at [facility], has 3 Daughters all live in [place].) H&P Review of Systems - Review of Systems: Review Of Systems: See Below General: Reports: ROS unobtainable (Severe dementia) Exam - Exam Exam: See Below - Vital Signs Vital Signs: Last Vital Signs Temp 97.8 F 10/24/20 11:24 Pulse 57 L 10/24/20 12:57 Resp 14 10/24/20 12:34 BP 113/47 L 10/24/20 12:57 Pulse Ox 98 10/24/20 12:00 Weight: 150 lb - Exam Quality Assessment: DVT Prophylaxis General: Alert, Cooperative, Mild Distress. No: Oriented HEENT: Conjunctiva Clear, Hearing Intact, Normal Nasal Septum, Posterior Pharynx Clear, Pupils Equal. No: Mucosa Moist & [place] Neck: Supple, Trachea Midline, +2 Carotid Pulse wo Bruit Lungs: Clear to Auscultation, Normal Respiratory Effort, Decreased Breath Sounds Cardiovascular: Regular Rate, Regular Rhythm, Normal S1, Normal S2. No: Systolic Murmur, Diastolic Murmur GI/Abdominal Exam: Soft, Non-Tender, No Organomegaly, No Distention Extremities: Non-Tender, No Pedal Edema Skin: Warm, Dry, Intact Neuro Extensive - Mental Status: Alert, Normal Mood/Affect, Disorientation to Place, Disorientation to Time, Memory Loss-Remote Events, Memory Loss-Recent Events. No: Oriented x3, Normal Cognition, Memory Intact - Patient Data Lab Results Last 24 hrs: Laboratory Results - last 24 hr 10/24/20 10/24/20 10/24/20 Range/Units 11:25 11:25 11:25 WBC (4.5-11.0) K/uL RBC (3.30-5.50) M/uL Hgb (12.0-15.0) g/dL Hct (36.0-48.0) % MCV (80-98) fL MCH (27-31) pg MCHC (32-36) % Plt Count (150-400) K/uL Neut % (Auto) (36-66) % Lymph % (Auto) (24-44) % [place] % (Auto) (2-6) % Eos % (Auto) (2-4) % Baso % (Auto) (0-1) % Sodium 145 (140-148) mmol/L Potassium 3.9 (3.6-5.2) mmol/L Chloride 107 (100-108) mmol/L Carbon Dioxide 30 (21-32) mmol/L Anion Gap 7.8 (5.0-14.0) mmol/L BUN 19 H D (7-18) mg/dL Creatinine 1.1 H (0.6-1.0) mg/dL Est Cr Clr Drug Dosing 34.87 mL/min Estimated GFR (MDRD) 48 L (>60) Glucose 70 L (74-106) mg/dL Lactic Acid 2.7 H (0.4-2.0) mmol/L Calcium 8.4 L (8.5-10.1) mg/dL Total Bilirubin 0.7 D (0.2-1.0) mg/dL AST 34 (15-37) U/L ALT 30 (12-78) U/L Alkaline Phosphatase 166 H (46-116) U/L Ammonia 23 (11-32) mmol/L Troponin I (0.000-0.056) ng/mL Total Protein 6.3 L (6.4-8.2) g/dL Albumin 2.0 L (3.4-5.0) g/dL Globulin 4.3 H (2.3-3.5) g/dL Albumin/Globulin Ratio 0.5 L (1.2-2.2) Urine Color (YELLOW) Urine Appearance (CLEAR) Urine pH (5.0-8.0) Ur Specific [place] (1.008-1.030) Urine Protein (NEGATIVE) mg/dL Urine Glucose (UA) (NEGATIVE) mg/dL Urine Ketones (NEGATIVE) mg/dL Urine Occult Blood (NEGATIVE) Urine Nitrite (NEGATIVE) Urine Bilirubin (NEGATIVE) Urine Urobilinogen (0.2-1.0) EU/dL Ur Leukocyte Esterase (NEGATIVE) Urine RBC (0-5) Urine WBC (0-5) Ur Epithelial Cells Amorphous Sediment Urine Bacteria Urine Mucus 10/24/20 10/24/20 10/24/20 Range/Units 11:27 11:29 12:23 WBC 7.9 (4.5-11.0) K/uL RBC 4.16 (3.30-5.50) M/uL Hgb 12.5 D (12.0-15.0) g/dL Hct 40.2 (36.0-48.0) % MCV 97 (80-98) fL MCH 30 (27-31) pg MCHC 31 L (32-36) % Plt Count 428 H (150-400) K/uL Neut % (Auto) 66 (36-66) % Lymph % (Auto) 24 (24-44) % [place] % (Auto) 8 H (2-6) % Eos % (Auto) 3 (2-4) % Baso % (Auto) 0 (0-1) % Sodium (140-148) mmol/L Potassium (3.6-5.2) mmol/L Chloride (100-108) mmol/L Carbon Dioxide (21-32) mmol/L Anion Gap (5.0-14.0) mmol/L BUN (7-18) mg/dL Creatinine (0.6-1.0) mg/dL Est Cr Clr Drug Dosing mL/min Estimated GFR (MDRD) (>60) Glucose (74-106) mg/dL Lactic Acid (0.4-2.0) mmol/L Calcium (8.5-10.1) mg/dL Total Bilirubin (0.2-1.0) mg/dL AST (15-37) U/L ALT (12-78) U/L Alkaline Phosphatase (46-116) U/L Ammonia (11-32) mmol/L Troponin I 0.032 (0.000-0.056) ng/mL Total Protein (6.4-8.2) g/dL Albumin (3.4-5.0) g/dL Globulin (2.3-3.5) g/dL Albumin/Globulin Ratio (1.2-2.2) Urine Color Yellow (YELLOW) Urine Appearance Cloudy A (CLEAR) Urine pH 8.5 H (5.0-8.0) Ur Specific [place] 1.020 (1.008-1.030) Urine Protein 30 H (NEGATIVE) mg/dL Urine Glucose (UA) Negative (NEGATIVE) mg/dL Urine Ketones Negative (NEGATIVE) mg/dL Urine Occult Blood Trace-intact H (NEGATIVE) Urine Nitrite Positive H (NEGATIVE) Urine Bilirubin Negative (NEGATIVE) Urine Urobilinogen 1.0 (0.2-1.0) EU/dL Ur Leukocyte Esterase Moderate H (NEGATIVE) Urine RBC 0-5 (0-5) Urine WBC 20-30 H (0-5) Ur Epithelial Cells Not seen Amorphous Sediment Not seen Urine Bacteria Many Urine Mucus Moderate Result Diagrams: 10/24/20 11:29 10/24/20 11:25 Sepsis Event Note - Evaluation Sepsis Screening Result: No Definite Risk - Focused Exam Vital Signs: Vital Signs Temp Pulse Resp BP Pulse Ox 10/24/20 12:57 57 L 113/47 L 10/24/20 12:34 55 L 14 98/57 L 10/24/20 12:00 54 L 16 106/49 L 98 10/24/20 11:24 97.8 F 60 15 123/69 94 L *Q Meaningful Use (ADM) - VTE Risk Assess *Q Each Risk Factor Represents 1 Point: Obesity ( BMI > 25 kg/m2) Total Score 1 Point Risk Factors: 1 Each Risk Factor Represents 2 Points: None Total Score 2 Point Risk Factors: 0 Each Risk Factor Represents 3 Points: Age 75 Years or Greater Total Score 3 Point Risk Factors: 3 Each Risk Factor Represents 5 Points: None Total Score 5 Point Risk Factors: 0 Venous Thromboembolism Risk Factor Score *Q: 4 Problem List Initiated/Reviewed/Updated: Yes Orders Last 24hrs: Active Orders 24 hr Category Date Time Status Patient Status Manage Transfer [TRANSFER] Routine ADT 10/24/20 13:12 Active EKG Documentation Completion [RC] ASDIRECTED Care 10/24/20 11:26 Active CULTURE BLOOD [BC] Urgent Lab 10/24/20 12:58 Ordered CULTURE BLOOD [BC] Urgent Lab 10/24/20 12:58 Ordered CULTURE URINE [RM] Stat Lab 10/24/20 13:02 Received Sodium Chloride 0.9% [Normal Saline] 1,000 ml Med 10/24/20 13:00 Active IV ASDIRECTED Sodium Chloride 0.9% [Saline Flush] Med 10/24/20 11:25 Active 10 ml FLUSH ASDIRECTED PRN cefTRIAXone [Rocephin] 1 gm Med 10/24/20 12:56 Active Sodium Chloride 0.9% [Normal Saline] 50 ml IV ONETIME Blood Culture x2 Reflex Set [OM.PC] Urgent Oth 10/24/20 12:57 Ordered Saline Lock Insert [OM.PC] Routine Oth 10/24/20 11:25 Ordered Resuscitation Status Routine Resus Stat 10/24/20 13:15 Ordered EKG 12 Lead [EK] Routine Ther 10/24/20 11:25 Ordered Medication Orders Ceftriaxone Sodium 1 gm/ (Sodium Chloride) 50 mls @ 100 mls/hr IV ONETIME ONE Stop: 10/24/20 13:25 Sodium Chloride (Normal Saline) 1,000 mls @ 125 mls/hr IV ASDIRECTED ALBERTO Sodium Chloride (Saline Flush) 10 ml FLUSH ASDIRECTED PRN PRN Reason: Keep Vein Open Last Admin: 10/24/20 11:54 Dose: 10 ml Documented by: NICKY Assessment/Plan Comment:: ASSESSMENT AND PLAN URINARY TRACT INFECTION-history of recurrent infections over the past year. Urinalysis obtained in the emergency department shows evidence of infection. -Urine and blood cultures pending -IV fluids for hydration -Ceftriaxone 1 g IV every 24 hours, pending culture results DEHYDRATION-likely secondary to UTI and recent Covid infection. Elevated lactic acid level is likely secondary to this -IV fluids as above COVID-19 INFECTION-not hypoxic, with no other active symptoms -No treatment indicated CHRONIC KIDNEY DISEASE STAGE IIIa -Closely monitor renal function and urine output DEMENTIA -Melatonin at bedtime -Continue outpatient medical therapy MAINTENANCE ISSUES -DVT prophylaxis; Lovenox 40 mg subcu daily -GI prophylaxis; continue outpatient PPI therapy -Bustillo catheter; not indicated -Nutrition; regular diet -Nicotine dependence; not required CODE STATUS-FULL CODE ADMISSION STATUS-patient will be admitted to inpatient status, expect at least a 2 night hospital stay for evaluation and management of problems as outlined above. At the time of this admission I do not reasonably expected evaluation and management of this problem will require more than a 96 hour hospital stay. DISPOSITION-anticipate discharge to home after the hospital stay. PRIMARY CARE PROVIDER-Ekta Lama - Mortality Measure Prognosis:: Poor
[2020-10-24] MEDS ORDERED: Ondansetron 4 MG/2 ML SDV IV PRN (14:32)
[2020-10-24] MEDS ORDERED: Polyethylene Glycol 3350 Powder 17 GM Packet PO PRN (14:32)
[2020-10-24] MEDS: Acetaminophen 325 MG Tab PO PRN (15:35)
[2020-10-24] MEDS: Enoxaparin 40 MG/0.4 ML Syringe SUBCUT SCH (15:35)
[2020-10-24] MEDS: Carvedilol 3.125 MG Tab PO SCH (16:22)
[2020-10-24] MEDS ORDERED: Phenazopyridine 95 MG Tab PO PRN ×2 (19:15→19:36)
[2020-10-24] MEDS ORDERED: Phenazopyridine 95 MG Tab PO ONE (19:45)
[2020-10-24] MEDS: Donepezil 10 MG Tab PO SCH (21:35)
[2020-10-24] MEDS: Melatonin 3 MG Tab PO SCH (21:35)
[2020-10-24] MEDS: Baclofen 10 MG Tab PO SCH (21:36)
[2020-10-24] MEDS: Lactobacillus Rhamnosus GG (Probiotic) Cap PO SCH (21:36)
[2020-10-24] MEDS: traMADol 50 MG Tab PO PRN (21:36)
[2020-10-24] MEDS: atorvaSTATin 20 MG Tab PO SCH (21:36)
[2020-10-25] MEDS: traMADol 50 MG Tab PO PRN ×3 (04:48→17:28)
[2020-10-25] MEDS: Acetaminophen 325 MG Tab PO PRN ×3 (04:48→17:28)
[2020-10-25] MEDS ORDERED: Levothyroxine 50 MCG Tab PO SCH (07:30)
[2020-10-25] MEDS: Carvedilol 3.125 MG Tab PO SCH ×2 (07:51→17:26)
[2020-10-25] MEDS: Citalopram 10 MG Tab PO SCH (08:19)
[2020-10-25] MEDS: Loratadine 10 MG Tab PO SCH (08:19)
[2020-10-25] MEDS: Baclofen 10 MG Tab PO SCH ×2 (08:19→22:04)
[2020-10-25] MEDS: Pantoprazole 40 MG Tab.CR PO SCH (08:19)
[2020-10-25] MEDS: Lactobacillus Rhamnosus GG (Probiotic) Cap PO SCH ×2 (08:19→22:04)
[2020-10-25] MEDS: Aspirin 81 MG Tab.EC PO SCH (08:19)
[2020-10-25] MEDS: Furosemide 20 MG Tab PO SCH (08:20)
[2020-10-25] MEDS ORDERED: Potassium Chloride 20 MEQ Tab.ER PO ONE (09:00)
--- NOTE | 2020-10-25 12:53 | PCM.PN ---
- General Info Date of Service: 10/25/20 Subjective Update: Ms. Mclean has been stable since admission yesterday. She is more alert and interactive, vital signs have been good and she has remained afebrile. Meaningful history concerning recent symptoms or review of systems because of her severe dementia. - Patient Data Vitals - Most Recent: Last Vital Signs Temp 97.0 F 10/25/20 11:00 Pulse 65 10/25/20 11:00 Resp 12 10/25/20 11:00 BP 127/59 L 10/25/20 11:00 Pulse Ox 96 10/25/20 11:00 Weight - Most Recent: 150 lb 0.005 oz I&O - Last 24 Hours: Intake & Output 10/24/20 10/25/20 10/25/20 22:59 06:59 14:59 Intake Total 304 1230 120 Output Total 150 100 Balance 154 1230 20 Lab Results Last 24 Hours: Laboratory Results - last 24 hr 10/25/20 10/25/20 10/25/20 Range/Units 05:49 05:49 05:49 WBC 6.4 (4.5-11.0) K/uL RBC 3.75 (3.30-5.50) M/uL Hgb 11.3 L (12.0-15.0) g/dL Hct 36.5 (36.0-48.0) % MCV 97 (80-98) fL MCH 30 (27-31) pg MCHC 31 L (32-36) % Plt Count 400 (150-400) K/uL Neut % (Auto) 62 (36-66) % Lymph % (Auto) 26 (24-44) % [place] % (Auto) 11 H (2-6) % Eos % (Auto) 1 L (2-4) % Baso % (Auto) 0 (0-1) % Sodium 146 (140-148) mmol/L Potassium 3.5 L (3.6-5.2) mmol/L Chloride 110 H (100-108) mmol/L Carbon Dioxide 26 (21-32) mmol/L Anion Gap 13.5 (5.0-14.0) mmol/L BUN 14 (7-18) mg/dL Creatinine 0.7 (0.6-1.0) mg/dL Est Cr Clr Drug Dosing 54.79 mL/min Estimated GFR (MDRD) > 60 (>60) Glucose 87 (74-106) mg/dL Lactic Acid 1.7 (0.4-2.0) mmol/L Calcium 7.9 L (8.5-10.1) mg/dL [place] Results Last 24 Hours: Microbiology 10/24/20 13:02 Urine Culture - Preliminary Urine, Catheterized Med Orders - Current: Current Medications Acetaminophen (Tylenol) 650 mg PO Q4H PRN PRN Reason: Pain (Mild 1-3)/fever Last Admin: 10/25/20 10:41 Dose: 650 mg Documented by: Aspirin (Halfprin) 81 mg PO DAILY [facility] Last Admin: 10/25/20 08:19 Dose: 81 mg Documented by: Atorvastatin Calcium (Lipitor) 40 mg PO BEDTIME [facility] Last Admin: 10/24/20 21:36 Dose: 40 mg Documented by: Baclofen (Lioresal) 5 mg PO BID [facility] Last Admin: 10/25/20 08:19 Dose: 5 mg Documented by: Carvedilol (Coreg) 3.125 mg PO BIDMEALS [facility] Last Admin: 10/25/20 07:51 Dose: Not Given Documented by: Citalopram Hydrobromide (Celexa) 10 mg PO DAILY [facility] Last Admin: 10/25/20 08:19 Dose: 10 mg Documented by: Donepezil HCl (Aricept) 20 mg PO BEDTIME [facility] Last Admin: 10/24/20 21:35 Dose: 20 mg Documented by: Enoxaparin Sodium (Lovenox) 40 mg SUBCUT Q24H [facility] Last Admin: 10/24/20 15:35 Dose: 40 mg Documented by: Exemestane (Aromasin) 25 mg PO PCBREAKFAST [facility] Last Admin: 10/25/20 09:18 Dose: 25 mg Documented by: Furosemide (Lasix) 20 mg PO DAILY [facility] Last Admin: 10/25/20 08:20 Dose: 20 mg Documented by: Ceftriaxone Sodium 1 gm/ (Sodium Chloride) 50 mls @ 100 mls/hr IV Q24H [facility] Last Admin: 10/25/20 12:40 Dose: 100 mls/hr Documented by: Lactobacillus Rhamnosus (Culturelle) 1 cap PO BID [facility] Last Admin: 10/25/20 08:19 Dose: 1 cap Documented by: Levothyroxine Sodium 50 mcg/ (Levothyroxine Sodium 25 mcg) 75 mcg PO ACBREAKFAST [facility] Last Admin: 10/25/20 08:18 Dose: 75 mcg Documented by: Loratadine (Claritin) 10 mg PO DAILY [facility] Last Admin: 10/25/20 08:19 Dose: 10 mg Documented by: Melatonin (Melatonin) 9 mg PO BEDTIME [facility] Last Admin: 10/24/20 21:35 Dose: 9 mg Documented by: Ondansetron HCl (Zofran) 4 mg IV Q4H PRN PRN Reason: Nausea/Vomiting Pantoprazole Sodium (Protonix) 40 mg PO ACBREAKFAST [facility] Last Admin: 10/25/20 08:19 Dose: 40 mg Documented by: Polyethylene Glycol (Miralax) 17 gm PO DAILY PRN PRN Reason: Constipation Sodium Chloride (Saline Flush) 10 ml FLUSH ASDIRECTED PRN PRN Reason: Keep Vein Open Tramadol HCl (Ultram) 50 mg PO Q6H PRN PRN Reason: Pain (moderate 4-6) Last Admin: 10/25/20 10:40 Dose: 50 mg Documented by: Discontinued Medications Ceftriaxone Sodium 1 gm/ (Sodium Chloride) 50 mls @ 100 mls/hr IV ONETIME ONE Stop: 10/24/20 13:25 Last Admin: 10/24/20 13:10 Dose: 100 mls/hr Documented by: Sodium Chloride (Normal Saline) 1,000 mls @ 125 mls/hr IV ASDIRECTED [facility] Last Admin: 10/24/20 13:10 Dose: 125 mls/hr Documented by: Sodium Chloride (Normal Saline) 1,000 mls @ 75 mls/hr IV ASDIRECTED [facility] Last Admin: 10/25/20 03:15 Dose: 75 mls/hr Documented by: Levothyroxine Sodium (Synthroid) 75 mcg PO ACBRK [facility] Phenazopyridine HCl (Urinary Pain Relief) 190 mg PO TID PRN PRN Reason: pain Stop: 10/26/20 21:00 Phenazopyridine HCl (Urinary Pain Relief) 190 mg PO TID PRN PRN Reason: pain Phenazopyridine HCl (Urinary Pain Relief) 190 mg PO ONETIME ONE Stop: 10/24/20 19:46 Last Admin: 10/24/20 21:36 Dose: 190 mg Documented by: Potassium Chloride (Klor-Con M20) 40 meq PO ONETIME ONE Stop: 10/25/20 09:01 Last Admin: 10/25/20 09:00 Dose: 40 meq Documented by: Sodium Chloride (Saline Flush) 10 ml FLUSH ASDIRECTED PRN PRN Reason: Keep Vein Open Last Admin: 10/24/20 11:54 Dose: 10 ml Documented by: - Exam Quality Assessment: DVT Prophylaxis General: Alert, Cooperative, No Acute Distress. No: Oriented Lungs: Clear to Auscultation, Normal Respiratory Effort Cardiovascular: Regular Rate, Regular Rhythm, No Murmurs GI/Abdominal Exam: Soft, Non-Tender, No Organomegaly, No Distention Extremities: Non-Tender, No Pedal Edema Sepsis Event Note - Evaluation Sepsis Screening Result: No Definite Risk - Focused Exam Vital Signs: Vital Signs Temp Pulse Pulse Resp BP BP Pulse Ox 10/25/20 11:00 97.0 F 65 12 127/59 L 96 10/25/20 07:51 56 L 121/56 L 10/25/20 07:16 96.9 F 50 L 10 L 121/56 L 93 L 10/25/20 02:42 97.6 F 14 120/59 L 92 L - Problem List Review Problem List Initiated/Reviewed/Updated: Yes - My Orders Last 24 Hours: My Active Orders 10/24/20 Lunch Regular Diet [DIET] 10/24/20 13:15 Resuscitation Status Routine 10/24/20 14:32 Acetaminophen [TylenoL] 650 mg PO Q4H PRN Ondansetron [Zofran] 4 mg IV Q4H PRN Sodium Chloride 0.9% [Saline Flush] 10 ml FLUSH ASDIRECTED PRN polyethylene glycoL 3350 [MiraLAX] 17 gm PO DAILY PRN 10/24/20 14:32 Patient Status [ADT] Routine Ambulate [RC] QID Cardiac Monitoring [RC] Q8H Height and Weight [RC] DAILY Intake and Output [RC] QSHIFT Notify Provider Vital Signs [RC] ASDIRECTED Oxygen Therapy [RC] PRN Peripheral IV Care [RC] Q12H Up With Assistance [RC] ASDIRECTED Up to Chair [RC] QID VTE/DVT Education [RC] Per Unit Routine Vital Signs [RC] Q4H Peripheral IV Insertion Adult [OM.PC] Routine 10/24/20 16:00 Enoxaparin [Lovenox] 40 mg SUBCUT Q24H 10/24/20 17:00 carvediloL [Coreg] 3.125 mg PO BIDMEALS 10/24/20 19:19 traMADol [Ultram] 50 mg PO Q6H PRN 10/24/20 21:00 Baclofen [Lioresal] 5 mg PO BID Donepezil [Aricept] 20 mg PO BEDTIME Lactobacillus Rhamnosus GG [Culturelle] 1 cap PO BID Melatonin 9 mg PO BEDTIME atorvaSTATin [Lipitor] 40 mg PO BEDTIME 10/25/20 07:30 Levothyroxine [Synthroid] 75 mcg PO ACBREAKFAST Pantoprazole [ProTONIX] 40 mg PO ACBREAKFAST 10/25/20 09:00 Aspirin [Halfprin] 81 mg PO DAILY Citalopram [Celexa] 10 mg PO DAILY Exemestane [Aromasin] 25 mg PO PCBREAKFAST Furosemide [Lasix] 20 mg PO DAILY Loratadine [Claritin] 10 mg PO DAILY 10/25/20 12:50 Convert IV to Saline Lock [OM.PC] Routine 10/25/20 13:00 cefTRIAXone [Rocephin] 1 gm Sodium Chloride 0.9% [Normal Saline] 50 ml IV Q24H 10/26/20 05:11 POTASSIUM,K [CHEM] AM - Plan Plan:: ASSESSMENT AND PLAN URINARY TRACT INFECTION-history of recurrent infections over the past year. Urinalysis obtained in the emergency department shows evidence of infection. -Urine and blood cultures pending -Saline lock IV -Ceftriaxone 1 g IV every 24 hours, pending culture results DEHYDRATION-resolved COVID-19 INFECTION-not hypoxic, with no other active symptoms -No treatment indicated CHRONIC KIDNEY DISEASE STAGE IIIa -Closely monitor renal function and urine output DEMENTIA -Melatonin at bedtime -Continue outpatient medical therapy MAINTENANCE ISSUES -DVT prophylaxis; Lovenox 40 mg subcu daily -GI prophylaxis; continue outpatient PPI therapy -Bustillo catheter; not indicated -Nutrition; regular diet -Nicotine dependence; not required CODE STATUS-FULL CODE ADMISSION STATUS-patient will be admitted to inpatient status, expect at least a 2 night hospital stay for evaluation and management of problems as outlined above. At the time of this admission I do not reasonably expected evaluation and management of this problem will require more than a 96 hour hospital stay. DISPOSITION-anticipate discharge to home after the hospital stay. PRIMARY CARE PROVIDER-Ekta Lama
[2020-10-25] MEDS ORDERED: cefTRIAXone 1 GM in Sodium Chloride 0.9% 50 ML IV SCH (13:00)
[2020-10-25] MEDS: Enoxaparin 40 MG/0.4 ML Syringe SUBCUT SCH (15:20)
[2020-10-25] MEDS: atorvaSTATin 20 MG Tab PO SCH (22:03)
[2020-10-25] MEDS: Melatonin 3 MG Tab PO SCH (22:04)
[2020-10-25] MEDS: Donepezil 10 MG Tab PO SCH (22:04)
[2020-10-26] MEDS: traMADol 50 MG Tab PO PRN (02:30)
[2020-10-26] MEDS: Loratadine 10 MG Tab PO SCH (08:57)
[2020-10-26] MEDS: Pantoprazole 40 MG Tab.CR PO SCH (08:57)
[2020-10-26] MEDS: Citalopram 10 MG Tab PO SCH (08:57)
[2020-10-26] MEDS: Baclofen 10 MG Tab PO SCH (08:57)
[2020-10-26] MEDS: Carvedilol 3.125 MG Tab PO SCH (08:58)
[2020-10-26] MEDS: Lactobacillus Rhamnosus GG (Probiotic) Cap PO SCH (08:59)
[2020-10-26 09:00] VITALS: BP 105/51
[2020-10-26] MEDS ORDERED: Potassium Chloride 20 MEQ Tab.ER PO ONE (09:00)
[2020-10-26] MEDS: Aspirin 81 MG Tab.EC PO SCH (09:00)
[2020-10-26] MEDS: Furosemide 20 MG Tab PO SCH (09:00)
[2020-10-26 09:06] VITALS: PULSE 79
--- NOTE | 2020-10-26 09:17 | PCM.DCSUM1 ---
Discharge Summary - Hospital Course Brief History: Ms. Mclean is a 80-year-old woman who was admitted through the emergency department with a syncopal episode and weakness secondary to dehydration and underlying urinary tract infection. - Discharge Data Discharge Date: 10/26/20 Discharge Disposition: Home, Self-Care 01 Condition: Fair - Referral to Home Health Primary Care Physician: Grant Flores MD - Discharge Diagnosis/Problem(s) (1) Change in mental status SNOMED Code(s): 756827592 ICD Code: R41.82 - ALTERED MENTAL STATUS, UNSPECIFIED Status: Acute Current Visit: Yes (2) Fall at detention SNOMED Code(s): 061840998 ICD Code: W19.XXXA - UNSPECIFIED FALL, INITIAL ENCOUNTER; Y92.129 - UNSP PLACE IN LONG TERM PLACE Status: Acute Current Visit: Yes (3) History of 2019 novel coronavirus disease (COVID-19) SNOMED Code(s): 146802756720418806 ICD Code: Z86.19 - PERSONAL HISTORY OF OTHER INFECTIOUS AND PARASITIC DISEASES Status: Acute Current Visit: Yes (4) Hypokalemia SNOMED Code(s): 23133711 ICD Code: E87.6 - HYPOKALEMIA Status: Acute Priority: High Current Visit: No (5) UTI (urinary tract infection) SNOMED Code(s): 96991158 ICD Code: N39.0 - URINARY TRACT INFECTION, SITE NOT SPECIFIED Status: Acute Priority: High Current Visit: Yes Qualifiers: Urinary tract infection type: acute cystitis Hematuria presence: without hematuria Qualified Code(s): N30.00 - Acute cystitis without hematuria - Patient Summary/Data Hospital Course: Ms. Mclean is a 80-year-old woman who was admitted through the emergency department with weakness and a syncopal episode secondary to urinary tract infection and dehydration. She was unable to provide a meaningful history concerning recent symptoms or review of systems because of her severe dementia. Her significant other is present today he reports that he was talking to her on the phone when he heard her fall. Staff at the assisted living report. Of unresponsiveness lasting several minutes. She was brought to the emergency department for evaluation. Urinalysis showed evidence of underlying infection. There was a mild elevation in lactic acid level, likely secondary to dehydration. No other evidence of significant sepsis or other infection. On admission she was given IV fluids for hydration and continued on IV ceftriaxone for management of the urinary tract infection. Urine culture and blood cultures were obtained. Blood cultures remain negative throughout hospitalization. Urine culture grew Klebsiella which was sensitive to almost all antibiotics. By the time of discharge she had improved significantly and was felt to be back to baseline. She will be discharged on oral antibiotics with cephalexin for an additional 3 days. Activity will be as tolerated and she will resume her usual activity. - Patient Instructions Diet: Usual Diet as Tolerated Activity: As Tolerated Other/Special Instructions: Lab in 1 week; BMP. - Discharge Plan *PRESCRIPTION DRUG MONITORING PROGRAM REVIEWED*: Not Applicable *COPY OF PRESCRIPTION DRUG MONITORING REPORT IN PATIENT LUIS FERNANDO: Not Applicable Prescriptions/Med Rec: cephALEXin [Cephalexin] 500 mg PO QID #12 capsule Home Medications: Home Meds Levothyroxine [Synthroid] 75 mcg PO ACBRK 06/15/14 [History] Memantine HCl [Namenda] 28 mg PO DAILY 06/15/14 [History] Aspirin [Halfprin] 81 mg PO DAILY 07/23/14 [History] atorvaSTATin [Lipitor] 40 mg PO BEDTIME 02/11/15 [History] Citalopram [Citalopram HBr] 10 mg PO DAILY 08/19/15 [History] Exemestane [Aromasin] 25 mg PO DAILY 09/26/18 [History] Multivit,Tx with Iron,Minerals [Therems-M] 1 tab PO DAILY 09/26/18 [History] Acetaminophen [Tylenol] 650 mg PO TID 12/07/18 [History] Furosemide 20 mg PO DAILY 11/01/19 [History] Loratadine [Claritin] 10 mg PO DAILY 11/01/19 [History] Sennosides [Senna] 8.6 mg PO DAILY PRN 11/01/19 [History] Triamcinolone Acetonide [Triamcinolone Acetonide 0.1% Crm] 1 dose TOP BID 02/18/20 [History] Lactobacillus Rhamnosus GG [Culturelle] 1 cap PO BID #60 cap 02/19/20 [Rx] Nystatin 1 dose TOP DAILY PRN 02/19/20 [History] lidocaine HCL [Aspercreme Lidocaine] 76.5 gm TP ASDIRECTED 05/18/20 [History] Baclofen 5 mg PO BID 10/24/20 [History] Donepezil HCl [Aricept] 23 mg PO BEDTIME 10/24/20 [History] Exemestane [Aromasin] 25 mg PO DAILY 10/24/20 [History] Multivitamins/Min/Ca/FA/Iron [Thera-M] 1 tab PO DAILY 10/24/20 [History] Pantoprazole Sodium [Protonix] 40 mg PO DAILY 10/24/20 [History] carvediloL [Carvedilol] 3.125 mg PO BID 10/24/20 [History] oxyCODONE 5 mg PO TID PRN 10/24/20 [History] cephALEXin [Cephalexin] 500 mg PO QID #12 capsule 10/26/20 [Rx] - Discharge Summary/Plan Comment DC Time >30 min.: No - Patient Data Vitals - Most Recent: Last Vital Signs Temp 97 F 10/26/20 07:00 Pulse 67 10/26/20 08:58 Resp 16 10/26/20 07:00 BP 105/51 L 10/26/20 08:58 Pulse Ox 95 10/26/20 07:00 Weight - Most Recent: 150 lb 0.005 oz I&O - Last 24 hours: Intake & Output 10/25/20 10/26/20 10/26/20 22:59 06:59 14:59 Intake Total 120 120 Output Total 200 Balance 120 -80 Lab Results - Last 24 hrs: Laboratory Results - last 24 hr 10/26/20 Range/Units 05:11 Potassium 3.6 (3.6-5.2) mmol/L NANCY Results - Last 24 hrs: Microbiology 10/24/20 13:02 Urine Culture - Final Urine, Catheterized Klebsiella Pneumonia Ss Pneumo 10/24/20 13:25 Aerobic Blood Culture - Preliminary Blood - Venous - Lab Draw NO GROWTH AFTER 1 DAY Anaerobic Blood Culture - Preliminary NO GROWTH AFTER 1 DAY 10/24/20 13:17 Aerobic Blood Culture - Preliminary Blood - Venous - Iv Start NO GROWTH AFTER 1 DAY Anaerobic Blood Culture - Preliminary NO GROWTH AFTER 1 DAY Med Orders - Current: Current Medications Acetaminophen (Tylenol) 650 mg PO Q4H PRN PRN Reason: Pain (Mild 1-3)/fever Last Admin: 10/25/20 17:28 Dose: 650 mg Documented by: Aspirin (Halfprin) 81 mg PO DAILY ALBERTO Last Admin: 10/26/20 09:00 Dose: 81 mg Documented by: Atorvastatin Calcium (Lipitor) 40 mg PO BEDTIME [facility] Last Admin: 10/25/20 22:03 Dose: 40 mg Documented by: Baclofen (Lioresal) 5 mg PO BID [facility] Last Admin: 10/26/20 08:57 Dose: 5 mg Documented by: Carvedilol (Coreg) 3.125 mg PO BIDMEALS [facility] Last Admin: 10/26/20 08:58 Dose: 3.125 mg Documented by: Citalopram Hydrobromide (Celexa) 10 mg PO DAILY [facility] Last Admin: 10/26/20 08:57 Dose: 10 mg Documented by: Donepezil HCl (Aricept) 20 mg PO BEDTIME [facility] Last Admin: 10/25/20 22:04 Dose: 20 mg Documented by: Enoxaparin Sodium (Lovenox) 40 mg SUBCUT Q24H [facility] Last Admin: 10/25/20 15:20 Dose: 40 mg Documented by: Exemestane (Aromasin) 25 mg PO PCBREAKFAST [facility] Last Admin: 10/26/20 08:59 Dose: 25 mg Documented by: Furosemide (Lasix) 20 mg PO DAILY [facility] Last Admin: 10/26/20 09:00 Dose: 20 mg Documented by: Ceftriaxone Sodium 1 gm/ (Sodium Chloride) 50 mls @ 100 mls/hr IV Q24H [facility] Last Admin: 10/25/20 12:40 Dose: 100 mls/hr Documented by: Lactobacillus Rhamnosus (Culturelle) 1 cap PO BID [facility] Last Admin: 10/26/20 08:59 Dose: 1 cap Documented by: Levothyroxine Sodium 50 mcg/ (Levothyroxine Sodium 25 mcg) 75 mcg PO ACBREAKFAST [facility] Last Admin: 10/26/20 08:59 Dose: 75 mcg Documented by: Loratadine (Claritin) 10 mg PO DAILY [facility] Last Admin: 10/26/20 08:57 Dose: 10 mg Documented by: Melatonin (Melatonin) 9 mg PO BEDTIME [facility] Last Admin: 10/25/20 22:04 Dose: 9 mg Documented by: Ondansetron HCl (Zofran) 4 mg IV Q4H PRN PRN Reason: Nausea/Vomiting Pantoprazole Sodium (Protonix) 40 mg PO ACBREAKFAST [facility] Last Admin: 10/26/20 08:57 Dose: 40 mg Documented by: Polyethylene Glycol (Miralax) 17 gm PO DAILY PRN PRN Reason: Constipation Sodium Chloride (Saline Flush) 10 ml FLUSH ASDIRECTED PRN PRN Reason: Keep Vein Open Tramadol HCl (Ultram) 50 mg PO Q6H PRN PRN Reason: Pain (moderate 4-6) Last Admin: 10/25/20 17:28 Dose: 50 mg Documented by: Discontinued Medications Ceftriaxone Sodium 1 gm/ (Sodium Chloride) 50 mls @ 100 mls/hr IV ONETIME ONE Stop: 10/24/20 13:25 Last Admin: 10/24/20 13:10 Dose: 100 mls/hr Documented by: Sodium Chloride (Normal Saline) 1,000 mls @ 125 mls/hr IV ASDIRECTED [facility] Last Admin: 10/24/20 13:10 Dose: 125 mls/hr Documented by: Sodium Chloride (Normal Saline) 1,000 mls @ 75 mls/hr IV ASDIRECTED [facility] Last Admin: 10/25/20 03:15 Dose: 75 mls/hr Documented by: Levothyroxine S[facility] (Synthroid) [facility] Phenazopyridine HCl (Urinary Pain Relief) 190 mg PO TID PRN PRN Reason: pain Stop: 10/26/20 21:00 Phenazopyridine HCl (Urinary Pain Relief) 190 mg PO TID PRN PRN Reason: pain Phenazopyridine HCl (Urinary Pain Relief) 190 mg PO ONETIME ONE Stop: 10/24/20 19:46 Last Admin: 10/24/20 21:36 Dose: 190 mg Documented by: Potassium Chloride (Klor-Con M20) 40 meq PO ONETIME ONE Stop: 10/25/20 09:01 Last Admin: 10/25/20 09:00 Dose: 40 meq Documented by: Potassium Chloride (Klor-Con M20) 40 meq PO ONETIME ONE Stop: 10/26/20 09:01 Sodium Chloride (Saline Flush) 10 ml FLUSH ASDIRECTED PRN PRN Reason: Keep Vein Open Last Admin: 10/24/20 11:54 Dose: 10 ml Documented by: - Exam Quality Assessment: Reports: DVT Prophylaxis General: Reports: Alert, Cooperative, No Acute Distress. Denies: Oriented Lungs: Reports: Clear to Auscultation, Normal Respiratory Effort Cardiovascular: Reports: Regular Rate, Regular Rhythm, No Murmurs GI/Abdominal Exam: Soft, Non-Tender, No Organomegaly, No Distention
== END 2020-10-26 11:00 | DRG 690 ==
LOC: JP.ED 11:19 → JP.ICU 13:12
PROVIDERS: ADMIT Hospitalist; ATTEND Hospitalist
DX: N30.00 Acute cystitis without hematuria (principal); E86.0 Dehydration; G30.1 Alzheimer's disease with late onset; H54.7 Unspecified visual loss; W18.30XA Fall on same level, unspecified, initial encounter; I10 Essential (primary) hypertension; Y92.129 Unspecified place in nursing home as the place of occurrence of the external cause; E87.6 Hypokalemia; E78.00 Pure hypercholesterolemia, unspecified; Z86.19 Personal history of other infectious and parasitic diseases; I25.2 Old myocardial infarction; I25.10 Atherosclerotic heart disease of native coronary artery without angina pectoris; E78.5 Hyperlipidemia, unspecified; Z85.3 Personal history of malignant neoplasm of breast; Z79.82 Long term (current) use of aspirin; Z79.890 Hormone replacement therapy; Z79.899 Other long term (current) drug therapy; J44.9 Chronic obstructive pulmonary disease, unspecified; F41.9 Anxiety disorder, unspecified; G30.9 Alzheimer's disease, unspecified; F02.80 Dementia in other diseases classified elsewhere, unspecified severity, without behavioral disturbance, psychotic disturbance, mood disturbance, and anxiety; F32.9 Major depressive disorder, single episode, unspecified; E03.9 Hypothyroidism, unspecified; Z98.42 Cataract extraction status, left eye; Z98.41 Cataract extraction status, right eye; Z90.12 Acquired absence of left breast and nipple; Z98.51 Tubal ligation status; Z95.5 Presence of coronary angioplasty implant and graft; I12.9 Hypertensive chronic kidney disease with stage 1 through stage 4 chronic kidney disease, or unspecified chronic kidney disease; N18.31 Chronic kidney disease, stage 3a
CPT/HCPCS: 36415; 70450; 70450-26; 71045; 71045-26; 80048; 80053; 81001; 82140; 83605; 84132; 84484; 85025; 87040; 87086; 87088; 87186; 93005; 93010; 99221-AI; 99231; 99238; 99285; 99285-25; A9270-GY; J0696; J1650; J7030; J7050

== ENCOUNTER 2020-12-19 21:05 | Emergency (ER) | payer MEDICARE, MEDICAID ==
[2020-12-19 21:38] VITALS: BP 114/61; PULSE 58
--- NOTE | 2020-12-19 22:12 | EDM.PDOC ---
ED HPI GENERAL MEDICAL PROBLEM - General Chief Complaint: Lower Extremity Injury/Pain Stated Complaint: POSSIBLE BLOOD CLOT Time Seen by Provider: 12/19/20 22:04 Source of Information: Reports: Patient, Family, RN Notes Reviewed History Limitations: Reports: No Limitations - History of Present Illness INITIAL COMMENTS - FREE TEXT/NARRATIVE: 80-year-old female presents emergency department today concerned about blood clot, she is currently residing in a memory care unit has a history of Alzheimer's over the last couple days she is noticed a red area on her thigh and just below the knee and there is a palpable cord that is tender to the touch inside of the right leg Right Leg Pain Score (Numeric/FACES): 5 - Related Data Allergies Allergy/AdvReac Type Severity Reaction Status Date / Time No Known Allergies Allergy Verified 12/19/20 21:14 Home Meds: Home Meds Levothyroxine [Synthroid] 75 mcg PO ACBRK 06/15/14 [History] Memantine HCl [Namenda] 28 mg PO DAILY 06/15/14 [History] Aspirin [Halfprin] 81 mg PO DAILY 07/23/14 [History] atorvaSTATin [Lipitor] 40 mg PO BEDTIME 02/11/15 [History] Citalopram [Citalopram HBr] 10 mg PO DAILY 08/19/15 [History] Acetaminophen [Tylenol] 650 mg PO TID 12/07/18 [History] Furosemide 20 mg PO DAILY 11/01/19 [History] Loratadine [Claritin] 10 mg PO DAILY 11/01/19 [History] Sennosides [Senna] 8.6 mg PO DAILY PRN 11/01/19 [History] Triamcinolone Acetonide [Triamcinolone Acetonide 0.1% Crm] 1 dose TOP BID 02/18/20 [History] Lactobacillus Rhamnosus GG [Culturelle] 1 cap PO BID #60 cap 02/19/20 [Rx] Nystatin 1 dose TOP DAILY PRN 02/19/20 [History] lidocaine HCL [Aspercreme Lidocaine] 76.5 gm TP ASDIRECTED 05/18/20 [History] Baclofen 5 mg PO BID 10/24/20 [History] Donepezil HCl [Aricept] 23 mg PO BEDTIME 10/24/20 [History] Exemestane [Aromasin] 25 mg PO DAILY 10/24/20 [History] Multivitamins/Min/Ca/FA/Iron [Thera-M] 1 tab PO DAILY 10/24/20 [History] Pantoprazole Sodium [Protonix] 40 mg PO DAILY 10/24/20 [History] carvediloL [Carvedilol] 3.125 mg PO BID 10/24/20 [History] oxyCODONE 5 mg PO TID PRN 10/24/20 [History] Past Medical History HEENT History: Reports: Cataract, Impaired Vision Other HEENT History: macular edema Cardiovascular History: Reports: CAD, High Cholesterol, LA, Stents, Syncope Respiratory History: Reports: Bronchitis, Recurrent, COPD, SOB Other Respiratory History: lung nodules Gastrointestinal History: Reports: Bowel Obstruction, Diverticulosis, Gastritis, GI Bleed, PUD Genitourinary History: Reports: UTI, Recurrent [employer] History: Reports: , Other (See Below) Other [employer] History: breast lumpectomy Musculoskeletal History: Reports: Back Pain, Chronic, Fracture, Fibromyalgia Neurological History: Reports: Alzheimers Disease, Seizure Other Neuro History: dementia Psychiatric History: Reports: Alzheimers Disease, Anxiety, Dementia, Depression, Suicide Attempt, Suicidal Ideation Other Psychiatric History: Dementia Endocrine/Metabolic History: Reports: Hypothyroidism, Other (See Below) Other Endocrine/Metabolic History: thyroid disease Hematologic History: Reports: Blood Transfusion(s), Other (See Below) Other Hematologic History: Serum antibody Anti-D Immunologic History: Reports: None Oncologic (Cancer) History: Reports: Breast Dermatologic History: Reports: Eczema - Infectious Disease History Infectious Disease History: Reports: Chicken Pox, Measles, Mumps Other Infectious Disease History: polio - Past Surgical History Head Surgeries/Procedures: Reports: None HEENT Surgical History: Reports: Cataract Surgery, Eye Surgery, Laser Surgery Cardiovascular Surgical History: Reports: Coronary Artery Stent, Vascular Surgery Respiratory Surgical History: Reports: None GI Surgical History: Reports: Colonoscopy, EGD, Hernia Repair/Other, Small Bowel, Other (See Below) Other GI Surgeries/Procedures: three bleeding ulcers 10/2017 Female Surgical History: Reports: Breast Biopsy, Mastectomy, Tubal Ligation, Other (See Below) Other Female Surgeries/Procedures: left side mastectomy Endocrine Surgical History: Reports: None Neurological Surgical History: Reports: None Musculoskeletal Surgical History: Reports: Carpal Tunnel, Other (See Below) Other Musculoskeletal Surgeries/Procedures:: ring finger surgery Oncologic Surgical History: Reports: Lumpectomy, Mastectomy, Other (See Below) Other Oncologic Surgeries/Procedures: Left breast Dermatological Surgical History: Reports: None Social & Family History - Family History Family Medical History: Unobtainable - Tobacco Use Tobacco Use Status *Q: Former Tobacco User Used Tobacco, but Quit: Yes Month/Year Tobacco Last Used: 11/27 - Caffeine Use Caffeine Use: Reports: None - Recreational Drug Use Recreational Drug Use: No - Living Situation & Occupation Living situation: Reports: , Extended Care Facility Occupation: Disabled (lives at Memory Care Unit for 3 years, lives [place] of [place] at [facility], has 3 Daughters all live in [place].) Review of Systems - Review of Systems Review Of Systems: See Below Constitutional: Reports: No Symptoms Respiratory: Reports: No Symptoms Cardiovascular: Reports: No Symptoms GI/Abdominal: Reports: No Symptoms Skin: Reports: Bruising, Rash ED EXAM, GENERAL - Physical Exam Exam: See Below Free Text/Narrative:: Examination of the right leg I do appreciate an erythematous area that starts just below the knee on the right side inner aspect and then progresses to mid thigh there is a firm palpable cord there consistent with a superficial thrombophlebitis Exam Limited By: Physical Impairment General Appearance: Alert, No Apparent Distress Respiratory/Chest: No Respiratory Distress Course - Vital Signs Last Recorded V/S: Last Vital Signs Temp 97.2 F 12/19/20 21:49 Pulse 58 L 12/19/20 21:49 Resp 16 12/19/20 21:49 BP 114/61 12/19/20 21:49 Pulse Ox 98 12/19/20 21:49 - Orders/Labs/Meds Orders: Active Orders 24 hr Category Date Time Status VL Duplex Lwr Ext Veins Ltd Rt [US] Stat Exams 12/19/20 22:09 Ordered Meds: Medications Discontinued Medications Generic Name Dose Route Start Last Admin Trade Name Freq PRN Reason Stop Dose Admin Oxycodone HCl 5 mg 12/19/20 23:04 12/19/20 23:10 Oxycodone PO 12/19/20 23:05 5 mg ONETIME ONE Administration Departure - Departure Time of Disposition: 23:13 Disposition: Home, Self-Care 01 Condition: Fair Clinical Impression: Superficial thrombophlebitis of right leg - Discharge Information Instructions: Thrombophlebitis Referrals: Grant Flores MD [Primary Care Provider] - Forms: ED Department Discharge Additional Instructions: Try the Motrin for pain control or ibuprofen, try the leg compression, please follow-up with your primary care in 1 week's time for reevaluation Sepsis Event Note (ED) - Evaluation Sepsis Screening Result: No Definite Risk - Focused Exam Vital Signs: Vital Signs Temp Pulse Resp BP Pulse Ox 12/19/20 21:49 97.2 F 58 L 16 114/61 98 12/19/20 21:36 97.2 F 58 L 16 114/61 98 - My Orders Last 24 Hours: My Active Orders 12/19/20 22:09 VL Duplex Lwr Ext Veins Ltd Rt [US] Stat - Assessment/Plan Last 24 Hours: My Active Orders 12/19/20 22:09 VL Duplex Lwr Ext Veins Ltd Rt [US] Stat Plan: Assessment Acuity = acute Site and laterality = superficial thrombophlebitis greater saphenous vein right leg Etiology = unknown Manifestations = pain Location of injury = Home Lab values = ultrasound describes the superficial thrombophlebitis Plan She is at low risk of this is a long distance from any deep vein system I therefore use anti-inflammatory such as ibuprofen for pain control, compression and then have her follow-up with your primary care in a week for recheck This note was dictated using [employer] voice recognition software please call with any questions on syntax or grammar.
[2020-12-19] MEDS ORDERED: oxyCODONE 5 MG Tab PO ONE (23:04)
--- NOTE | 2020-12-19 23:31 | CRLUS ---
INDICATION: Right leg superficial thrombophlebitis, pain COMPARISON: None TECHNIQUE: A compression venous ultrasound exam was performed of the right lower extremity using garcia-scale imaging, color Doppler and spectral Doppler analysis. FINDINGS: The common femoral vein, proximal greater saphenous, deep femoral vein, superficial femoral vein, and popliteal vein are compressible and demonstrate normal phasic flow with augmentation. Flow is demonstrated in the posterior tibial and peroneal veins. Greater saphenous vein thrombosis is seen in the mid to distal thigh. A 3.0 x 2.3 x 2.4 cm cystic focus is noted in the popliteal fossa. IMPRESSION: 1. No evidence of right lower extremity deep venous thrombosis. 2. Superficial venous thrombosis involving the greater saphenous vein in the mid to distal thigh. 3. Cystic focus in the popliteal fossa may represent a Souza`s cyst. Correlate clinically. Dictated by Milton Greco MD @ Dec 19 2020 11:24PM Signed by Dr. Milton Greco @ Dec 19 2020 11:29PM
== END 2020-12-19 23:27 | disposition home or self-care (01) ==
LOC: JP.ED 21:05
DX: I80.01 Phlebitis and thrombophlebitis of superficial vessels of right lower extremity (principal); I25.10 Atherosclerotic heart disease of native coronary artery without angina pectoris; E78.00 Pure hypercholesterolemia, unspecified; I25.2 Old myocardial infarction; J44.9 Chronic obstructive pulmonary disease, unspecified; G30.9 Alzheimer's disease, unspecified; F02.80 Dementia in other diseases classified elsewhere, unspecified severity, without behavioral disturbance, psychotic disturbance, mood disturbance, and anxiety; E03.9 Hypothyroidism, unspecified; Z79.899 Other long term (current) drug therapy; Z95.5 Presence of coronary angioplasty implant and graft; Z87.891 Personal history of nicotine dependence
CPT/HCPCS: 93971; 99282; 99283; A9270

== ENCOUNTER 2021-08-04 05:07 | Emergency (ER) | payer MEDICARE, MEDICAID ==
--- NOTE | 2021-08-04 05:33 | EDM.PDOC ---
ED HPI GENERAL MEDICAL PROBLEM - General Stated Complaint: MEDICAL VIA NORTH Time Seen by Provider: 08/04/21 05:16 Source of Information: Reports: EMS, RN Notes Reviewed History Limitations: Reports: Physical Impairment - History of Present Illness INITIAL COMMENTS - FREE TEXT/NARRATIVE: 81-year-old memory care patient presents to the emergency department via EMS unfortunately we have limited information she has a significant dementia problem so no history or review of systems can be obtained. Per report from EMS there is concern about behavioral changes and concern for urinary tract infection. - Related Data Allergies Allergy/AdvReac Type Severity Reaction Status Date / Time No Known Allergies Allergy Verified 08/04/21 05:42 Home Meds: Home Meds Levothyroxine [Synthroid] 75 mcg PO ACBRK 06/15/14 [History] Memantine HCl [Namenda] 28 mg PO DAILY 06/15/14 [History] Aspirin [Halfprin] 81 mg PO DAILY 07/23/14 [History] atorvaSTATin [Lipitor] 40 mg PO BEDTIME 02/11/15 [History] Citalopram [Citalopram HBr] 10 mg PO DAILY 08/19/15 [History] Acetaminophen [Tylenol] 650 mg PO TID 12/07/18 [History] Furosemide 20 mg PO DAILY 11/01/19 [History] Loratadine [Claritin] 10 mg PO DAILY 11/01/19 [History] Sennosides [Senna] 8.6 mg PO DAILY PRN 11/01/19 [History] Triamcinolone Acetonide [Triamcinolone Acetonide 0.1% Crm] 1 dose TOP BID 02/18/20 [History] Lactobacillus Rhamnosus GG [Culturelle] 1 cap PO BID #60 cap 02/19/20 [Rx] Nystatin 1 dose TOP DAILY PRN 02/19/20 [History] lidocaine HCL [Aspercreme Lidocaine] 76.5 gm TP ASDIRECTED 05/18/20 [History] Baclofen 5 mg PO BID 10/24/20 [History] Donepezil HCl [Aricept] 23 mg PO BEDTIME 10/24/20 [History] Exemestane [Aromasin] 25 mg PO DAILY 10/24/20 [History] Multivitamins/Min/Ca/FA/Iron [Thera-M] 1 tab PO DAILY 10/24/20 [History] Pantoprazole Sodium [Protonix] 40 mg PO DAILY 10/24/20 [History] carvediloL [Carvedilol] 3.125 mg PO BID 10/24/20 [History] oxyCODONE 5 mg PO TID PRN 10/24/20 [History] Past Medical History HEENT History: Reports: Cataract, Impaired Vision Other HEENT History: macular edema Cardiovascular History: Reports: CAD, High Cholesterol, GA, Stents, Syncope Respiratory History: Reports: Bronchitis, Recurrent, COPD, SOB Other Respiratory History: lung nodules Gastrointestinal History: Reports: Bowel Obstruction, Diverticulosis, Gastritis, GI Bleed, PUD Genitourinary History: Reports: UTI, Recurrent 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: , Other (See Below) Other BASKET HAND BRAIDER History: breast lumpectomy Musculoskeletal History: Reports: Back Pain, Chronic, Fracture, Fibromyalgia Neurological History: Reports: Alzheimers Disease, Seizure Other Neuro History: dementia Psychiatric History: Reports: Alzheimers Disease, Anxiety, Dementia, Depression, Suicide Attempt, Suicidal Ideation Other Psychiatric History: Dementia Endocrine/Metabolic History: Reports: Hypothyroidism, Other (See Below) Other Endocrine/Metabolic History: thyroid disease Hematologic History: Reports: Blood Transfusion(s), Other (See Below) Other Hematologic History: Serum antibody Anti-D Immunologic History: Reports: None Oncologic (Cancer) History: Reports: Breast Dermatologic History: Reports: Eczema - Infectious Disease History Infectious Disease History: Reports: Chicken Pox, Measles, Mumps Other Infectious Disease History: polio - Past Surgical History Head Surgeries/Procedures: Reports: None HEENT Surgical History: Reports: Cataract Surgery, Eye Surgery, Laser Surgery Cardiovascular Surgical History: Reports: Coronary Artery Stent, Vascular Surgery Respiratory Surgical History: Reports: None GI Surgical History: Reports: Colonoscopy, EGD, Hernia Repair/Other, Small Bowel, Other (See Below) Other GI Surgeries/Procedures: three bleeding ulcers 10/2017 Female Surgical History: Reports: Breast Biopsy, Mastectomy, Tubal Ligation, Other (See Below) Other Female Surgeries/Procedures: left side mastectomy Endocrine Surgical History: Reports: None Neurological Surgical History: Reports: None Musculoskeletal Surgical History: Reports: Carpal Tunnel, Other (See Below) Other Musculoskeletal Surgeries/Procedures:: ring finger surgery Oncologic Surgical History: Reports: Lumpectomy, Mastectomy, Other (See Below) Other Oncologic Surgeries/Procedures: Left breast Dermatological Surgical History: Reports: None Social & Family History - Family History Family Medical History: Unobtainable - Caffeine Use Caffeine Use: Reports: None - Living Situation & Occupation Living situation: Reports: , Extended Care Facility Occupation: Disabled (lives at Memory Care Unit for 3 years, lives [place] of [place] at [facility], has 3 Daughters all live in [place].) ED ROS GENERAL - Review of Systems Review Of Systems: Unable To Obtain Reason Not Obtained: Dementia ED EXAM, GENERAL - Physical Exam Exam: See Below Exam Limited By: Physical Impairment General Appearance: Alert Respiratory/Chest: No Respiratory Distress, Lungs Clear, Normal Breath Sounds, No Accessory Muscle Use, Chest Non-Tender Cardiovascular: Regular Rate, Rhythm, No Murmur Course - Vital Signs Last Recorded V/S: Last Vital Signs Temp 97.5 F 08/04/21 05:35 Pulse 57 L 08/04/21 05:35 Resp 16 08/04/21 05:35 BP 132/66 08/04/21 05:35 Pulse Ox 98 08/04/21 05:35 - Orders/Labs/Meds Labs: Laboratory Tests 08/04/21 08/04/21 08/04/21 Range/Units 05:26 05:26 05:26 WBC 6.9 (4.5-11.0) K/uL RBC 3.84 (3.30-5.50) M/uL Hgb 11.8 L (12.0-15.0) g/dL Hct 36.9 (36.0-48.0) % MCV 96 (80-98) fL MCH 31 (27-31) pg MCHC 32 (32-36) % Plt Count 246 (150-400) K/uL Neut % (Auto) 47.7 (36-66) % Lymph % (Auto) 37.8 (24-44) % [place] % (Auto) 9.8 H (2-6) % Eos % (Auto) 4.1 H (2-4) % Baso % (Auto) 0.6 (0-1) % Sodium 141 (140-148) mmol/L Potassium 4.2 (3.6-5.2) mmol/L Chloride 103 (100-108) mmol/L Carbon Dioxide 31 (21-32) mmol/L Anion Gap 7.0 (5.0-14.0) mmol/L BUN 19 H (7-18) mg/dL Creatinine 1.1 H (0.6-1.0) mg/dL Est Cr Clr Drug Dosing 36.07 mL/min Estimated GFR (MDRD) 48 L (>60) Glucose 96 (74-106) mg/dL Lactic Acid 1.3 (0.4-2.0) mmol/L Calcium 9.2 (8.5-10.1) mg/dL Troponin I (0.000-0.056) ng/mL Urine Color (YELLOW) Urine Appearance (CLEAR) Urine pH (5.0-8.0) Ur Specific [place] (1.008-1.030) Urine Protein (NEGATIVE) mg/dL Urine Glucose (UA) (NEGATIVE) mg/dL Urine Ketones (NEGATIVE) mg/dL Urine Occult Blood (NEGATIVE) Urine Nitrite (NEGATIVE) Urine Bilirubin (NEGATIVE) Urine Urobilinogen (0.2-1.0) EU/dL Ur Leukocyte Esterase (NEGATIVE) Urine RBC (0-5) Urine WBC (0-5) Ur Epithelial Cells Amorphous Sediment Urine Bacteria Urine Mucus 08/04/21 08/04/21 Range/Units 05:26 06:30 WBC (4.5-11.0) K/uL RBC (3.30-5.50) M/uL Hgb (12.0-15.0) g/dL Hct (36.0-48.0) % MCV (80-98) fL MCH (27-31) pg MCHC (32-36) % Plt Count (150-400) K/uL Neut % (Auto) (36-66) % Lymph % (Auto) (24-44) % [place] % (Auto) (2-6) % Eos % (Auto) (2-4) % Baso % (Auto) (0-1) % Sodium (140-148) mmol/L Potassium (3.6-5.2) mmol/L Chloride (100-108) mmol/L Carbon Dioxide (21-32) mmol/L Anion Gap (5.0-14.0) mmol/L BUN (7-18) mg/dL Creatinine (0.6-1.0) mg/dL Est Cr Clr Drug Dosing mL/min Estimated GFR (MDRD) (>60) Glucose (74-106) mg/dL Lactic Acid (0.4-2.0) mmol/L Calcium (8.5-10.1) mg/dL Troponin I < 0.017 (0.000-0.056) ng/mL Urine Color Yellow (YELLOW) Urine Appearance Clear (CLEAR) Urine pH 7.5 (5.0-8.0) Ur Specific [place] 1.020 (1.008-1.030) Urine Protein Negative (NEGATIVE) mg/dL Urine Glucose (UA) Negative (NEGATIVE) mg/dL Urine Ketones Negative (NEGATIVE) mg/dL Urine Occult Blood Negative (NEGATIVE) Urine Nitrite Negative (NEGATIVE) Urine Bilirubin Negative (NEGATIVE) Urine Urobilinogen 1.0 (0.2-1.0) EU/dL Ur Leukocyte Esterase Trace H (NEGATIVE) Urine RBC 0-5 (0-5) Urine WBC 0-5 (0-5) Ur Epithelial Cells Few Amorphous Sediment Many Urine Bacteria Moderate Urine Mucus Moderate Departure - Departure Time of Disposition: 06:52 Disposition: DC/Tfer to [facility] Condition: Poor Clinical Impression: Alzheimer's dementia - Discharge Information Instructions: Alzheimer's Disease Referrals: Grant Flores MD [Primary Care Provider] - Additional Instructions: Recommend follow-up with primary care reevaluation of medications Sepsis Event Note (ED) - Focused Exam Vital Signs: Vital Signs Temp Pulse Resp BP Pulse Ox 08/04/21 05:35 97.5 F 57 L 16 132/66 98 - Assessment/Plan Plan: Assessment Acuity = acute Site and laterality = behavioral problems Etiology = advanced dementia secondary to Alzheimer's Manifestations = none Location of injury = Home Lab values = CBC BMP urinalysis unremarkable Plan Discharged back to memory care unit recommend follow-up primary care adjust medications This note was dictated using [email or web address] voice recognition software please call with any questions on syntax or grammar.
[2021-08-04 05:41] VITALS: BP 132/66; PULSE 57
== END 2021-08-04 07:09 ==
LOC: JP.ED 05:07
DX: G30.9 Alzheimer's disease, unspecified (principal); F02.80 Dementia in other diseases classified elsewhere, unspecified severity, without behavioral disturbance, psychotic disturbance, mood disturbance, and anxiety; I25.10 Atherosclerotic heart disease of native coronary artery without angina pectoris; E78.00 Pure hypercholesterolemia, unspecified; I25.2 Old myocardial infarction; J44.9 Chronic obstructive pulmonary disease, unspecified; E03.9 Hypothyroidism, unspecified; Z79.82 Long term (current) use of aspirin; Z79.899 Other long term (current) drug therapy
CPT/HCPCS: 36415; 80048; 81001; 83605; 84484; 85025; 99285

== ENCOUNTER 2021-09-02 11:03 | Emergency (ER) | payer MEDICARE, MEDICAID ==
--- NOTE | 2021-09-02 12:19 | EDM.PDOC ---
ED HPI GENERAL MEDICAL PROBLEM - General Chief Complaint: Head Injury Stated Complaint: VIA NORTH Time Seen by Provider: 09/02/21 12:11 Source of Information: Reports: Patient, Family, RN Notes Reviewed History Limitations: Reports: Physical Impairment - History of Present Illness INITIAL COMMENTS - FREE TEXT/NARRATIVE: 81-year-old female presents to the emergency department today following an injury at the memory care unit in the intermediate. She presents via EMS services per report from EMS staff and nurses aide they believe she was sleepwalking early this morning collapsed. Unwitnessed event she does have a history of dementia difficult to obtain any history from her therefore review of systems is limited, she did fall and hit her head - Related Data Allergies Allergy/AdvReac Type Severity Reaction Status Date / Time No Known Allergies Allergy Verified 08/04/21 05:42 Home Meds: Home Meds Levothyroxine [Synthroid] 75 mcg PO ACBRK 06/15/14 [History] Memantine HCl [Namenda] 28 mg PO DAILY 06/15/14 [History] Aspirin [Halfprin] 81 mg PO DAILY 07/23/14 [History] atorvaSTATin [Lipitor] 40 mg PO BEDTIME 02/11/15 [History] Citalopram [Citalopram HBr] 10 mg PO DAILY 08/19/15 [History] Acetaminophen [Tylenol] 650 mg PO TID 12/07/18 [History] Furosemide 20 mg PO DAILY 11/01/19 [History] Loratadine [Claritin] 10 mg PO DAILY 11/01/19 [History] Sennosides [Senna] 8.6 mg PO DAILY PRN 11/01/19 [History] Triamcinolone Acetonide [Triamcinolone Acetonide 0.1% Crm] 1 dose TOP BID 02/18/20 [History] Lactobacillus Rhamnosus GG [Culturelle] 1 cap PO BID #60 cap 02/19/20 [Rx] Nystatin 1 dose TOP DAILY PRN 02/19/20 [History] lidocaine HCL [Aspercreme Lidocaine] 76.5 gm TP ASDIRECTED 05/18/20 [History] Baclofen 5 mg PO BID 10/24/20 [History] Donepezil HCl [Aricept] 23 mg PO BEDTIME 10/24/20 [History] Exemestane [Aromasin] 25 mg PO DAILY 10/24/20 [History] Multivitamins/Min/Ca/FA/Iron [Thera-M] 1 tab PO DAILY 10/24/20 [History] Pantoprazole Sodium [Protonix] 40 mg PO DAILY 10/24/20 [History] carvediloL [Carvedilol] 3.125 mg PO BID 10/24/20 [History] oxyCODONE 5 mg PO TID PRN 10/24/20 [History] Past Medical History HEENT History: Reports: Cataract, Impaired Vision Other HEENT History: macular edema Cardiovascular History: Reports: CAD, High Cholesterol, DC, Stents, Syncope Respiratory History: Reports: Bronchitis, Recurrent, COPD, SOB Other Respiratory History: lung nodules Gastrointestinal History: Reports: Bowel Obstruction, Diverticulosis, Gastritis, GI Bleed, PUD Genitourinary History: Reports: UTI, Recurrent 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: , Other (See Below) 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 KILN DOOR BUILDER History: breast lumpectomy Musculoskeletal History: Reports: Back Pain, Chronic, Fracture, Fibromyalgia Neurological History: Reports: Alzheimers Disease, Seizure Other Neuro History: dementia Psychiatric History: Reports: Alzheimers Disease, Anxiety, Dementia, Depression, Suicide Attempt, Suicidal Ideation Other Psychiatric History: Dementia Endocrine/Metabolic History: Reports: Hypothyroidism, Other (See Below) Other Endocrine/Metabolic History: thyroid disease Hematologic History: Reports: Blood Transfusion(s), Other (See Below) Other Hematologic History: Serum antibody Anti-D Immunologic History: Reports: None Oncologic (Cancer) History: Reports: Breast Dermatologic History: Reports: Eczema - Infectious Disease History Infectious Disease History: Reports: Chicken Pox, Measles, Mumps Other Infectious Disease History: polio - Past Surgical History Head Surgeries/Procedures: Reports: None HEENT Surgical History: Reports: Cataract Surgery, Eye Surgery, Laser Surgery Cardiovascular Surgical History: Reports: Coronary Artery Stent, Vascular Surgery Respiratory Surgical History: Reports: None GI Surgical History: Reports: Colonoscopy, EGD, Hernia Repair/Other, Small Bowel, Other (See Below) Other GI Surgeries/Procedures: three bleeding ulcers 10/2017 Female Surgical History: Reports: Breast Biopsy, Mastectomy, Tubal Ligation, Other (See Below) Other Female Surgeries/Procedures: left side mastectomy Endocrine Surgical History: Reports: None Neurological Surgical History: Reports: None Musculoskeletal Surgical History: Reports: Carpal Tunnel, Other (See Below) Other Musculoskeletal Surgeries/Procedures:: ring finger surgery Oncologic Surgical History: Reports: Lumpectomy, Mastectomy, Other (See Below) Other Oncologic Surgeries/Procedures: Left breast Dermatological Surgical History: Reports: None Social & Family History - Family History Family Medical History: Unobtainable - Caffeine Use Caffeine Use: Reports: Coffee - Living Situation & Occupation Living situation: Reports: , Extended Care Facility Occupation: Disabled (lives at Memory Care Unit for 3 years, lives [address] [place] north of [place] at [facility], has 3 Daughters all live in [place].) ED ROS GENERAL - Review of Systems Review Of Systems: Unable To Obtain Reason Not Obtained: Dementia ED EXAM, HEAD INJURY - Physical Exam Exam: See Below Exam Limited By: Physical Impairment General Appearance: Alert, No Apparent Distress Head: Normocephalic, Scalp Hematoma, Scalp Tenderness Nexus Criteria: No: Posterior, Midline Cervical Tenderness, Evidence of Intoxication, Altered Level of Consciousness, Focal Neurological Deficit, Painful Distraction Injuries Eyes: Bilateral Eye: EOMI, PERRL Respiratory: No Respiratory Distress, Lungs Clear, Normal Breath Sounds, No Accessory Muscle Use, Chest Non-Tender Cardiovascular: Regular Rate, Rhythm, No Murmur GI/Abdominal Exam: Soft, No Mass #1 Interpretation EKG Date: 09/02/21 Time: 13:09 Rhythm: NSR [place]: Normal P-Wave: Present QRS: Normal ST-T: Normal QT: Normal Comparison: No Change Course - Vital Signs Last Recorded V/S: Last Vital Signs Temp 96.5 F L 09/02/21 13:22 Pulse 62 09/02/21 13:22 Resp 14 09/02/21 13:22 BP 142/62 H 09/02/21 13:22 Pulse Ox 95 09/02/21 13:22 - Orders/Labs/Meds Orders: Active Orders 24 hr Category Date Time Status Cardiac Monitoring [RC] .As Directed Care 09/02/21 12:16 Active EKG 12 Lead [EK] Stat Ther 09/02/21 12:16 Ordered Labs: Laboratory Tests 09/02/21 09/02/21 09/02/21 Range/Units 12:14 12:27 12:27 WBC 6.7 (4.5-11.0) K/uL RBC 4.09 (3.30-5.50) M/uL Hgb 12.8 (12.0-15.0) g/dL Hct 39.9 (36.0-48.0) % MCV 98 (80-98) fL MCH 31 (27-31) pg MCHC 32 (32-36) % Plt Count 209 (150-400) K/uL Neut % (Auto) 74.4 H (36-66) % Lymph % (Auto) 17.2 L (24-44) % [place] % (Auto) 4.7 (2-6) % Eos % (Auto) 3.3 (2-4) % Baso % (Auto) 0.4 (0-1) % Sodium 144 (140-148) mmol/L Potassium 3.8 (3.6-5.2) mmol/L Chloride 105 (100-108) mmol/L Carbon Dioxide 30 (21-32) mmol/L Anion Gap 8.9 (5.0-14.0) mmol/L BUN 14 (7-18) mg/dL Creatinine 0.9 (0.6-1.0) mg/dL Est Cr Clr Drug Dosing 38.25 mL/min Estimated GFR (MDRD) > 60 (>60) Glucose 95 (74-106) mg/dL Lactic Acid (0.4-2.0) mmol/L Calcium 9.1 (8.5-10.1) mg/dL Total Bilirubin 0.6 (0.2-1.0) mg/dL AST 21 (15-37) U/L ALT 20 (12-78) U/L Alkaline Phosphatase 95 (46-116) U/L Troponin I < 0.017 (0.000-0.056) ng/mL Total Protein 6.3 L (6.4-8.2) g/dL Albumin 3.2 L (3.4-5.0) g/dL Globulin 3.1 (2.3-3.5) g/dL Albumin/Globulin Ratio 1.0 L (1.2-2.2) Urine Color Yellow (YELLOW) Urine Appearance Cloudy A (CLEAR) Urine pH 7.5 (5.0-8.0) Ur Specific [place] 1.020 (1.008-1.030) Urine Protein Negative (NEGATIVE) mg/dL Urine Glucose (UA) Negative (NEGATIVE) mg/dL Urine Ketones Negative (NEGATIVE) mg/dL Urine Occult Blood Negative (NEGATIVE) Urine Nitrite Negative (NEGATIVE) Urine Bilirubin Negative (NEGATIVE) Urine Urobilinogen 0.2 (0.2-1.0) EU/dL Ur Leukocyte Esterase Small H (NEGATIVE) Urine RBC Not seen (0-5) Urine WBC 0-5 (0-5) Ur Epithelial Cells Not seen Amorphous Sediment Moderate Urine Bacteria Few Urine Mucus Not seen Urine Other 09/02/21 Range/Units 12:27 WBC (4.5-11.0) K/uL RBC (3.30-5.50) M/uL Hgb (12.0-15.0) g/dL Hct (36.0-48.0) % MCV (80-98) fL MCH (27-31) pg MCHC (32-36) % Plt Count (150-400) K/uL Neut % (Auto) (36-66) % Lymph % (Auto) (24-44) % [place] % (Auto) (2-6) % Eos % (Auto) (2-4) % Baso % (Auto) (0-1) % Sodium (140-148) mmol/L Potassium (3.6-5.2) mmol/L Chloride (100-108) mmol/L Carbon Dioxide (21-32) mmol/L Anion Gap (5.0-14.0) mmol/L BUN (7-18) mg/dL Creatinine (0.6-1.0) mg/dL Est Cr Clr Drug Dosing mL/min Estimated GFR (MDRD) (>60) Glucose (74-106) mg/dL Lactic Acid 1.9 (0.4-2.0) mmol/L Calcium (8.5-10.1) mg/dL Total Bilirubin (0.2-1.0) mg/dL AST (15-37) U/L ALT (12-78) U/L Alkaline Phosphatase (46-116) U/L Troponin I (0.000-0.056) ng/mL Total Protein (6.4-8.2) g/dL Albumin (3.4-5.0) g/dL Globulin (2.3-3.5) g/dL Albumin/Globulin Ratio (1.2-2.2) Urine Color (YELLOW) Urine Appearance (CLEAR) Urine pH (5.0-8.0) Ur Specific [place] (1.008-1.030) Urine Protein (NEGATIVE) mg/dL Urine Glucose (UA) (NEGATIVE) mg/dL Urine Ketones (NEGATIVE) mg/dL Urine Occult Blood (NEGATIVE) Urine Nitrite (NEGATIVE) Urine Bilirubin (NEGATIVE) Urine Urobilinogen (0.2-1.0) EU/dL Ur Leukocyte Esterase (NEGATIVE) Urine RBC (0-5) Urine WBC (0-5) Ur Epithelial Cells Amorphous Sediment Urine Bacteria Urine Mucus Urine Other Departure - Departure Time of Disposition: 13:53 Disposition: DC/[facility] to [facility] Condition: Poor Clinical Impression: Syncope Qualifiers: Syncope type: unspecified Qualified Code(s): R55 - Syncope and collapse - Discharge Information Instructions: Head Injury, Adult, [id number], Syncope, [id number] Referrals: Grant Flores MD [Primary Care Provider] - Forms: ED Department Discharge Additional Instructions: Continue with regular medications, please followup with your primary care provider in 3-5 days if not better, please call return to the emergency department with worsening of symptoms. Sepsis Event Note (ED) - Focused Exam Vital Signs: Vital Signs Temp Pulse Resp BP Pulse Ox 09/02/21 13:22 96.5 F L 62 14 142/62 H 95 09/02/21 12:55 96.7 F L 52 L 16 144/62 H 94 L 09/02/21 11:20 96.7 F L 52 L 16 144/62 H 94 L - My Orders Last 24 Hours: My Active Orders 09/02/21 12:16 Cardiac Monitoring [RC] .As Directed EKG 12 Lead [EK] Stat - Assessment/Plan Last 24 Hours: My Active Orders 09/02/21 12:16 Cardiac Monitoring [RC] .As Directed EKG 12 Lead [EK] Stat Plan: Assessment Acuity = acute Site and laterality = syncopal event with head injury complicated patient with known history of dementia in the memory care unit unwitnessed Etiology = unknown Manifestations = none Location of injury = Home Lab values = CBC, CMP, urinalysis unremarkable troponin within normal limits CT scan shows no acute intracranial process scalp hematoma Plan I did review lab work with family they are going to take her back to the memory care unit follow-up primary care as needed This note was dictated using [employer] voice recognition software please call with any questions on syntax or grammar.
[2021-09-02 13:25] VITALS: BP 142/62; PULSE 62
--- NOTE | 2021-09-02 13:41 | CRLCT ---
For Patients: As a result of the Cures Act, medical imaging exams and procedure reports are released immediately into your electronic medical record. You may view this report before your referring provider. If you have questions, please contact your health care provider. INDICATION: Fall. TECHNIQUE: Noncontrast axial images. Sagittal coronal reconstructions. COMPARISON: 10/24/2020. FINDINGS: There is partial visualization of a posterior superior scalp hematoma. No skull fracture is identified. Visualized paranasal sinuses and mastoids are clear. No acute intraorbital abnormality. No abnormal intracranial mass effect or midline shift. No acute intracranial hemorrhage. 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 A few small remote lacunar infarcts are seen basal ganglia and thalamus. Diffuse cerebral atrophy is again noted. IMPRESSION: 1. No CT evidence of an acute intracranial abnormality. 2. No skull fracture is identified. Dictated by Ramirez Chino MD @ 09/02/2021 1:40:35 PM Please note that all CT scans at this facility use dose modulation, iterative reconstruction, and/or weight-based dosing when appropriate to reduce radiation dose to as low as reasonably achievable. Dictated by: Ramirez Chino MD @ 09/02/2021 13:40:40 (Electronically Signed)
== END 2021-09-02 14:30 ==
LOC: JP.ED 11:03
DX: R55 Syncope and collapse (principal); I25.10 Atherosclerotic heart disease of native coronary artery without angina pectoris; E78.00 Pure hypercholesterolemia, unspecified; I25.2 Old myocardial infarction; J44.9 Chronic obstructive pulmonary disease, unspecified; G30.9 Alzheimer's disease, unspecified; F02.80 Dementia in other diseases classified elsewhere, unspecified severity, without behavioral disturbance, psychotic disturbance, mood disturbance, and anxiety; E03.9 Hypothyroidism, unspecified; Z79.82 Long term (current) use of aspirin; Z79.899 Other long term (current) drug therapy
CPT/HCPCS: 36415; 70450; 80053; 81001; 83605; 84484; 85025; 93005; 99285-25

== ENCOUNTER 2022-05-28 11:26 | Emergency (ER) | payer MEDICARE, MEDICAID ==
[2022-05-28 11:36] VITALS: PULSE 50
[2022-05-28 12:08] LABS: ESTIMATED GFR 65 mL/min (>60); TROPONIN I HIGH SENSITIVITY 9.4 pg/mL (<=60.3)
[2022-05-28 14:53] VITALS: BP 134/69
== END 2022-05-28 14:44 ==
LOC: JP.ED 11:26
DX: R41.82 Altered mental status, unspecified (principal); I25.10 Atherosclerotic heart disease of native coronary artery without angina pectoris; J44.9 Chronic obstructive pulmonary disease, unspecified; I25.2 Old myocardial infarction; E03.9 Hypothyroidism, unspecified; Z79.899 Other long term (current) drug therapy; Z79.82 Long term (current) use of aspirin
CPT/HCPCS: 36415; 80053; 80305-QW; 81001; 82140; 83605; 84484; 85025; 87086; 93005; 99285

== ENCOUNTER 2022-12-25 20:07 | Emergency (ER) | payer MEDICARE, MEDICAID ==
[2022-12-25] MEDS ORDERED: Sodium Chloride 0.9% 10 ML Syringe FLUSH PRN (20:11)
[2022-12-25] MEDS ORDERED: Sodium Chloride 0.9% 1,000 ML IV SCH (20:15)
[2022-12-25 20:52] LABS: ESTIMATED GFR 74 mL/min (>60); TROPONIN I HIGH SENSITIVITY 16.5 pg/mL (<=60.3)
[2022-12-25] MEDS ORDERED: levETIRAcetam in NaCl (iso-os) 1,000 MG in Premix Bag 1 BAG IV ONE ×2 (21:22)
[2022-12-25 21:54] VITALS: BP 119/56; PULSE 51
[2022-12-25] MEDS ORDERED: oxyCODONE 5 MG Tab PO ONE (22:23)
== END 2022-12-25 23:15 ==
LOC: JP.ED 20:07
DX: R56.9 Unspecified convulsions (principal); I25.10 Atherosclerotic heart disease of native coronary artery without angina pectoris; E78.00 Pure hypercholesterolemia, unspecified; I25.2 Old myocardial infarction; J44.9 Chronic obstructive pulmonary disease, unspecified; E03.9 Hypothyroidism, unspecified; Z79.899 Other long term (current) drug therapy
CPT/HCPCS: 36415; 80053; 83605; 84484; 85025; 96361; 96365; 99284; J1953; J3490; J7030; 99285